=== PATIENT | male | born 1995 | race Native Hawaiian/Other Pacific Islander ===

== ENCOUNTER → 2018-02-24 | Outpatient (REF) ==
--- NOTE | 2018-02-24 15:09 | Diagnostic Imaging Report ---
INDICATION: Pain in the right MCP joints. TIME OF EXAMINATION: 3:13 PM. FINDINGS: The metacarpals are intact. The phalanges appear intact. No fractures are seen. The carpus is unremarkable. IMPRESSION: No acute bony abnormality is detected. Dictated by: Dictated on workstation # [id number]
== END | disposition home or self-care (01) ==
LOC: OCC 14:36
PROVIDERS: ATTEND Nurse Practitioner Family
CPT/HCPCS: 73130

== ENCOUNTER 2018-05-11 23:49 | Emergency (ER) | payer BC, OTHER ==
[~2018-05-11] VITALS: Ht 172.7 cm; Wt 81.6 kg
--- OUTSIDE RECORDS SUMMARY | 2018-05-11 23:57 | XMS REPORT | Continuity of Care Document ---
Author Author [facility] Address Unknown Phone Unavailable Allergies There is no data. Medications There is no data. Problems There is no data. Procedures There is no data. Results There is no data. Encounters ACCT No. Visit Date/Time Discharge Status Pt. Type Provider Facility Loc./Unit Complaint [id number] 05/09/2018 14:00:00 ACT Outpatient MARCO MENDOZA [facility] [id number] 02/24/2018 14:36:00 02/24/2018 23:59:59 CLS Outpatient FRANTZ LOCKHART [facility] OCC CRUSH INJURY ATTN DIGITAL 2-5 MELACARPALS RING 05/11/2018 23:54:00 ACT Emergency HARINI REYNOSO, YUVAL Ernandez [facility] ER SOB,PT STS POSS SOMETHING HE SWALLOWED LODGED IN T [id number] 04/21/2013 14:46:00 04/21/2013 23:59:59 CLS Outpatient
[2018-05-12] MEDS ORDERED: ANTACID SUSP 30 ML UDC (MYLANTA) PO ONE (00:45)
[2018-05-12] MEDS ORDERED: LIDOCAINE 2% VISCOUS 15 ML UDC PO ONE (00:45)
--- NOTE | 2018-05-12 01:19 | ED Chest Pain ---
General Chief Complaint: Chest Wall/Rib Pain Stated Complaint: SOB,PT STS POSS SOMETHING HE SWALLOWED LODGED IN T Nursing Triage Note: epigastric pain after eating today. Nursing Sepsis Screen: No Definite Risk Source: patient Exam Limitations: no limitations History of Present Illness Date Seen by Provider: May 12, 2018 Time Seen by Provider: 23:55 Initial Comments This 23-year-old presents to the emergency room with complaints of central chest pain upon returning home from work around 16:00. He has worsening of the pain with deep inspiration. He reports pain as 6/10. Vital signs are unremarkable. Allergies and Home Medications Allergies Coded Allergies: No Known Drug Allergies (Unverified , 05/12/18) Home Medications No Active Prescriptions or Reported Meds Patient Home Medication List Home Medication List Reviewed: Yes Review of Systems Constitutional: no symptoms reported EENTM: No Symptoms Reported Respiratory: See HPI Cardiovascular: See HPI Gastrointestinal: No Symptoms Reported Genitourinary: No Symptoms Reported Musculoskeletal: no symptoms reported Skin: no symptoms reported Psychiatric/Neurological: No Symptoms Reported Endocrine: No Symptoms Reported Hematologic/Lymphatic: No Symptoms Reported Past Hyeivcm-Wykaxs-Djmkhc Hx Past Med/Social Hx: Reviewed Nursing Past Med/Soc Hx, Reviewed and Corrections made Patient Social History Alcohol Use: Denies Use Recreational Drug Use: No Smoking Status: Never a Smoker 2nd Hand Smoke Exposure: No Recent Foreign Travel: No Contact w/Someone Who Travel: No Recent Infectious Disease Expo: No Recent Hopitalizations: No Immunizations Up To Date Tetanus Booster (TDap): Less than 5yrs Seasonal Allergies Seasonal Allergies: No Past Medical History Surgeries: No Respiratory: No Cardiac: No Neurological: No Genitourinary: No Gastrointestinal: No Musculoskeletal: No Endocrine: No HEENT: No Cancer: No Psychosocial: No Integumentary: No Blood Disorders: No Physical Exam Vital Signs Capillary Refill : Less Than 3 Seconds Height, Weight, BMI Height: 5'8.00" Weight: 180lbs.oz.81.647307ol; BMI Method:Stated General Appearance: No Apparent Distress, WD/WN HEENT: PERRL/EOMI, Normal ENT Inspection, Pharynx Normal Neck: Normal Inspection Respiratory: Lungs Clear, Normal Breath Sounds, No Accessory Muscle Use, No Respiratory Distress Cardiovascular: Regular Rate, Rhythm, No Edema, No Murmur Gastrointestinal: Normal Bowel Sounds, Non Tender, Soft Extremity: Normal Inspection, Non Tender, No Calf Tenderness, No Pedal Edema, Other (Negative [place]) Neurologic/Psychiatric: Alert, Oriented x3, No Motor/Sensory Deficits, Normal Mood/Affect, rehab spec II-XII Norm as Tested Skin: Normal Color, Warm/Dry Progress/Results/Core Measures Results/Orders Lab Results Laboratory Tests Test 05/12/18 01:29 Range/Units White Blood Count 14.8 H 4.3-11.0 10^3/uL Red Blood Count 6.02 H 4.35-5.85 10^6/uL Hemoglobin 17.7 13.3-17.7 G/DL Hematocrit 51 40-54 % Mean Corpuscular Volume 85 80-99 FL Mean Corpuscular Hemoglobin 29 25-34 PG Mean Corpuscular Hemoglobin Concent 35 32-36 G/DL Red Cell Distribution Width 13.4 10.0-14.5 % Platelet Count 367 130-400 10^3/uL Mean Platelet Volume 8.9 7.4-10.4 FL Neutrophils (%) (Auto) 70 42-75 % Lymphocytes (%) (Auto) 22 12-44 % Monocytes (%) (Auto) 7 0-12 % Eosinophils (%) (Auto) 1 0-10 % Basophils (%) (Auto) 0 0-10 % Neutrophils # (Auto) 10.3 H 1.8-7.8 X 10^3 Lymphocytes # (Auto) 3.3 1.0-4.0 X 10^3 Monocytes # (Auto) 1.0 0.0-1.0 X 10^3 Eosinophils # (Auto) 0.1 0.0-0.3 10^3/uL Basophils # (Auto) 0.0 0.0-0.1 10^3/uL Neutrophils % (Manual) 71 % Lymphocytes % (Manual) 20 % Monocytes % (Manual) 9 % Blood Morphology Comment NORMAL Sodium Level 140 135-145 MMOL/L Potassium Level 4.3 3.6-5.0 MMOL/L Chloride Level 104 98-107 MMOL/L Carbon Dioxide Level 24 21-32 MMOL/L Anion Gap 12 5-14 MMOL/L Blood Urea Nitrogen 25 H 7-18 MG/DL Creatinine 1.24 0.60-1.30 MG/DL Estimat Glomerular Filtration Rate > 60 BUN/Creatinine Ratio 20 Glucose Level 91 70-105 MG/DL Calcium Level 10.4 H 8.5-10.1 MG/DL Total Bilirubin 0.6 0.1-1.0 MG/DL Aspartate Amino Transf (AST/SGOT) 13 5-34 U/L Alanine Aminotransferase (ALT/SGPT) 12 0-55 U/L Alkaline Phosphatase 60 40-136 U/L Troponin I < 0.30 <0.30 NG/ML Total Protein 8.0 6.4-8.2 GM/DL Albumin 4.9 H 3.2-4.5 GM/DL My Orders Orders - YUVAL SCHULER MD Chest Pa/Lat (2 View) (05/12/18 00:36) Lidocaine 2% Viscous 15 Ml (Xylocaine Vi (05/12/18 00:45) Antacid Suspension (Mylanta Suspension (05/12/18 00:45) Cbc With Automated Diff (05/12/18 01:20) Comprehensive Metabolic Panel (05/12/18 01:20) Troponin I (05/12/18 01:20) Saline Lock/Iv-Start (05/12/18 01:20) Ketorolac Injection (Toradol Injection) (05/12/18 01:30) Manual Differential (05/12/18 01:29) Ekg Tracing (05/12/18 02:09) Iv Push Wood Stock Blank Handler Ed (05/11/18 ) Medications Given in ED Vital Signs/I&O Blood Pressure Mean: 108 Progress Progress Note #1: Time: 01:19 Progress Note GI cocktail did not improve his pain. Chest x-ray was unremarkable. Workup will be continued with blood work. Toradol will be given for pain. Progress Note #2: Progress Note Labs revealed a leukocytosis of 14,000 but no pneumonia was appreciated. Patient was feeling better with Toradol. Initial ECG Impression Date: May 12, 2018 Initial ECG Impression Time: 02:17 Initial ECG Rate: 54 Initial ECG Rhythm: Normal Sinus Initial ECG Intervals: Normal Initial ECG Impression: Normal Comment Normal sinus rhythm with no ST elevation or depression. No abnormal intervals or axis deviation. Diagnostic Imaging Diagonstic Imaging: Xray Plain Films/CT/US/NM/MRI: chest Comments Chest x-ray was viewed by me. Report not yet available. No acute abnormalities were appreciated. Departure Impression Primary Impression: Atypical chest pain Additional Impression: Leukocytosis, unspecified Disposition: 01 HOME, SELF-CARE Condition: Improved Departure-Patient Inst. Decision time for Depature: 02:48 Referrals: NO,LOCAL PHYSICIAN (PCP/Family) Primary Care Physician Patient Instructions: Chest Pain That Is Not Caused by the Heart (DC) Add. Discharge Instructions: For your pain take ibuprofen up to 600 mg every 6 hours as needed. Add Tylenol (acetaminophen) up to 1000 mg every 6 hours as needed for pain not controlled by ibuprofen. Please return to care if you have worsening symptoms or if new symptoms such as fever develop. If pain is not completely resolved within the next couple of days, please follow-up with your primary care provider. All discharge instructions reviewed with patient and/or family. Voiced understanding. Scripts No Active Prescriptions or Reported Meds Work/School Note: Work Release Form Date Seen in the Emergency Department: May 12, 2018 Return to Work: May 13, 2018 Restrictions: No Restrictions YUVAL SCHULER MD May 12, 2018 01:19
[2018-05-12] MEDS ORDERED: KETOROLAC 30 MG/ML VIAL IVP ONE (01:30)
[2018-05-12 01:34] LABS: BASOPHILS % (AUTO) 0 % (0-10); EOSINOPHILS # (AUTO) 0.1 10^3/uL (0.0-0.3); EOSINOPHILS % (AUTO) 1 % (0-10); HEMATOCRIT 51 % (40-54); HEMOGLOBIN 17.7 G/DL (13.3-17.7); LYMPHOCYTES # (AUTO) 3.3 X 10^3 (1.0-4.0); LYMPHOCYTES % (AUTO) 22 % (12-44); MEAN CORPUSCULAR HEMOGLOBIN 29 PG (25-34); MEAN CORPUSCULAR HGB CONC 35 G/DL (32-36); MEAN CORPUSCULAR VOLUME 85 FL (80-99); MEAN PLATELET VOLUME 8.9 FL (7.4-10.4); MONOCYTES % (AUTO) 7 % (0-12); NEUTROPHILS # (AUTO) 10.3 X 10^3 (1.8-7.8); NEUTROPHILS % (AUTO) 70 % (42-75); PLATELET COUNT 367 10^3/uL (130-400); RED BLOOD COUNT 6.02 10^6/uL (4.35-5.85); RED CELL DISTRIBUTION WIDTH 13.4 % (10.0-14.5); WHITE BLOOD COUNT 14.8 10^3/uL (4.3-11.0)
[2018-05-12 01:51] LABS: ALANINE AMINOTRANSFERASE 12 U/L (0-55); ALBUMIN 4.9 GM/DL (3.2-4.5); ALKALINE PHOSPHATASE 60 U/L (40-136); BILIRUBIN,TOTAL 0.6 MG/DL (0.1-1.0); BUN/CREATININE RATIO 20; CALCIUM 10.4 MG/DL (8.5-10.1); CARBON DIOXIDE 24 MMOL/L (21-32); CHLORIDE 104 MMOL/L (98-107); CREATININE SERUM 1.24 MG/DL (0.60-1.30); GFR ESTIMATED > 60; GLUCOSE 91 MG/DL (70-105); POTASSIUM 4.3 MMOL/L (3.6-5.0); SODIUM 140 MMOL/L (135-145)
[2018-05-12 02:02] LABS: LYMPHOCYTES % (MANUAL) 20 %; MONOCYTES % (MANUAL) 9 %; NEUTROPHILS % (MANUAL) 71 %; RBC MORPH NORMAL
[2018-05-12 02:55] VITALS: BP 136/90
--- NOTE | 2018-05-12 07:13 | Diagnostic Imaging Report ---
EXAMINATION: PA and lateral chest at 0105 AM INDICATION: Chest pain There are no prior studies available for comparison. The heart size is within normal limits. The lungs are clear. There is no evidence for failure, pneumonia or for a pleural effusion. There is no sign of a pneumothorax. The mediastinum is not widened. There are symmetric lucencies on each side of the tracheal air shadow at the level of the clavicles. These are probably secondary to superimposition as opposed to a pneumomediastinum. Even so, if the patient's symptoms of epigastric pain persist, then a repeat chest exam would be recommended. The osseous structures are intact IMPRESSION: 1. The linear lucencies on each side of the tracheal air shadow at the level of the clavicles are more likely due to superimposition than to a pneumomediastinum. Even so, the possibility of pneumomediastinum should still be considered. Recommendations as above. 2. There is no acute cardiopulmonary abnormality noted otherwise. 3. These results were discussed with Dr. Chatman in the ER. Dictated by: Dictated on workstation # [id number]
[2018-06-15] MEDS ORDERED: NF-NACL1GT PO (17:46)
[2018-06-15] MEDS ORDERED: SENN-20 PO (17:46)
[2018-06-15] MEDS ORDERED: FLDR.1T PO (17:46)
== END 2018-05-12 02:53 | disposition home or self-care (01) ==
LOC: EDUNIT# 23:49 → ER 23:54
DX: R07.89 Other chest pain (principal); D72.829 Elevated white blood cell count, unspecified
CPT/HCPCS: 36415; 71046; 80053; 84484; 85007; 85027; 93005; 96374

== ENCOUNTER → 2018-05-16 | Outpatient (CLI) | payer BC ==
[~2018-05-16] MED LIST: CARB15DR OU; FLDR.1T PO; IOHEXOL 350 MG/ML 100 ML (OMNIPAQUE 350) VIAL IV ONE; NF-NACL1GT PO; NS 250 ML (IVPB) BAG IV ONE; SENN-20 PO
[2018-05-16 15:43] LABS: BASOPHILS % (AUTO) 0 % (0-10); EOSINOPHILS # (AUTO) 0.1 10^3/uL (0.0-0.3); EOSINOPHILS % (AUTO) 1 % (0-10); HEMATOCRIT 51 % (40-54); HEMOGLOBIN 17.5 G/DL (13.3-17.7); LYMPHOCYTES % (AUTO) 34 % (12-44); MEAN CORPUSCULAR HEMOGLOBIN 29 PG (25-34); MEAN CORPUSCULAR HGB CONC 34 G/DL (32-36); MEAN CORPUSCULAR VOLUME 85 FL (80-99); MEAN PLATELET VOLUME 9.1 FL (7.4-10.4); MONOCYTES # (AUTO) 0.5 X 10^3 (0.0-1.0); MONOCYTES % (AUTO) 6 % (0-12); NEUTROPHILS # (AUTO) 5.3 X 10^3 (1.8-7.8); NEUTROPHILS % (AUTO) 59 % (42-75); PLATELET COUNT 383 10^3/uL (130-400); RED CELL DISTRIBUTION WIDTH 13.4 % (10.0-14.5)
--- NOTE | 2018-05-16 16:29 | Diagnostic Imaging Report ---
PROCEDURE: CT head with and without contrast. TECHNIQUE: Multiple contiguous axial images were obtained through the brain before and after the administration of intravenous contrast. INDICATION: Right lower extremity weakness and visual changes. COMPARISON: No prior studies are available for comparison. FINDINGS: There is a large, lobulated, hyperdense mass in the midline supratentorially. This appears to be located in the left lateral ventricle in the region of the frontal horn and body. This measures 6.5 cm AP x 5.2 cm transverse x 5.4 cm cephalocaudal. This does cross the midline and appears to displace the septum pellucidum and has mass effect on the right lateral ventricle. There is some dilatation of the lateral ventricles as well and temporal horn, suggestive of a component of hydrocephalus. This does have some central low density within it, consistent with cystic component. No definite calcification within the mass is identified. There does appear to be a component of enhancement on the post contrast images. Cisterns are patent. No acute intracranial hemorrhage is seen. Dos Santos-white matter interface is maintained. IMPRESSION: Large, lobulated, hyperdense mass with central cystic component which appears to be arising from the left lateral ventricle. Diagnostic considerations would include a central neurocytoma, ependymoma, or subependymoma. A giant cell astrocytoma would be another consideration. There does appear to be a moderate hydrocephalus present. MRI of the brain with and without intravenous contrast would be recommended for further characterization. Results were called to [facility] and given to the RN prior to this dictation. Dictated by: Dictated on workstation # [id number]
== END ==
LOC: RAD 15:18
PROVIDERS: ATTEND Nurse Practitioner Primary Care
DX: G93.89 Other specified disorders of brain (principal); R53.1 Weakness
CPT/HCPCS: 36415; 70470; 84443; 85025; 86308; 86617; 86666; 86757

== ENCOUNTER → 2018-05-17 | Outpatient (CLI) | payer BC ==
[~2018-05-17] MED LIST changes: +GADOBUTROL 10 MMOL/10 ML (GADAVIST) VIAL IV ONE; -IOHEXOL 350 MG/ML 100 ML (OMNIPAQUE 350) VIAL IV ONE; -NS 250 ML (IVPB) BAG IV ONE
--- NOTE | 2018-05-17 17:55 | Diagnostic Imaging Report ---
CLINICAL INDICATION: Patient has frontal headache with dizziness and blurred vision x1 month. Patient's vision fades to black comes back normal. Followup to CT done on 05/16/2018. EXAM: MRI of the brain performed without and with 8 cc of Gadavist IV contrast. Sequences include axial DWI, ADC map, coronal gradient echo, axial T2, axial FLAIR, axial T1, axial T1 post IV contrast, coronal T1 fat-sat post IV contrast, and sagittal T1 post IV contrast. COMPARISON: Head CT without and with contrast dated 05/16/2018. FINDINGS: Again seen heterogeneously enhancing mass which is in the region of the foramen of Monro/septum pellucidum and is predominantly left of midline and within the left ventricle. This mass measures 6.6 cm x 5.3 cm x 4.8 cm (AP x Trans x CC). There is diffusion restriction associated with this mass. There are some high T2 signal cystic changes associated with it. Prominent vessels are seen within it. There are some subtle amorphous areas of low gradient-echo within this mass which may represent calcification which may have represented to areas of high density on the prior noncontrast head CT. There is stable hydrocephalus with enlargement of the lateral ventricles (left side more than the right). There is localized pzao-zi-ndgda midline shift. There is no other intraparenchymal enhancing lesion seen. There is mild confluent high T2 signal in the lateral periventricular regions, likely representing transependymal flow. There is slight effacement of the suprasellar cistern. The [place] vascular structures show no gross abnormality as visualized. The pituitary gland, sella, and suprasellar regions are unremarkable as visualized. The extracranial soft tissue, skull, and orbits are unremarkable. Paranasal sinuses and temporal bone structures show no significant abnormality. IMPRESSION: Again seen heterogeneous enhancing mass which is in the region of the septum pellucidum/foramen of Monro and predominantly within the left lateral ventricle. There is associated hydrocephalus with transependymal flow. 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 Choroid plexus papilloma and ependymoma are suspected to be less likely. Dictated by: Dictated on workstation # [id number]
== END ==
LOC: RAD 13:37
PROVIDERS: ATTEND Nurse Practitioner Primary Care
DX: G93.9 Disorder of brain, unspecified (principal); G91.9 Hydrocephalus, unspecified
CPT/HCPCS: 70553

== ENCOUNTER 2018-06-02 10:53 | Inpatient (IN) | payer BC ==
[~2018-06-02] VITALS: Ht 172.7 cm; Wt 76.3 kg
[2018-06-02 16:45] VITALS: BP 106/77
[2018-06-02] MEDS ORDERED: ARTIFICAL TEARS 0.4 ML UNIT DOSE (REFRESH PLUS) OU PRN (17:15)
--- NOTE | 2018-06-02 17:41 | Consultation-Hospitalist ---
HPI History of Present Illness: HPI/Chief Complaint CC: Debility following brain surgery HPI: This is a 23-year-old male who presents to inpatient rehabilitation via [facility] after transferred from [facility] following brain surgery for a neurocytoma. Apparently he presented with recurrent headaches and worsening clinical status found to have brain mass and sent to higher level of care which resulted in successful and uncomplicated resection but now recovering from brain surgery with residual aphasia and right arm and leg weakness. Currently he is doing well mother has no concerns and she is at the bedside with her other 2 children. His bowels are moving and denies any pain. I reviewed all current medications from including Florinef, sodium tablets, and fluid restriction along with Decadron and all will be continued and labs will be monitored closely. Source: patient, family Exam Limitations: no limitations Date Seen 06/02/18 Attending Physician Cosmo Andersen MD PCP No,Local Physician Referring Physician Date of Admission Jun 02, 2018 at 16:56 Home Medications & Allergies Home Medications Reviewed patient Home Medication Reconciliation performed by pharmacy medication reconciliations measurement and sensing technician and/or nursing. Patients Allergies have been reviewed. Allergies Allergies Coded Allergies No Known Drug Allergies (Unverified05/12/18) Past Xlabpup-Ehhgjs-Ydeedd Hx Past Med/Social Hx: Reviewed Nursing Past Med/Soc Hx, Reviewed and Corrections made Patient Social History Marrital Status: single Employed/Student: student, full-time Alcohol Use: Denies Use Recreational Drug Use: No Smoking Status: Never a Smoker 2nd Hand Smoke Exposure: No Physical Abuse Screen: No Sexual Abuse: No Recent Foreign Travel: No Contact w/other who traveled: No Recent Hopitalizations: Yes ( - BRAIN TUMOR) Recent Infectious Disease Expo: No Immunizations Up To Date Tetanus Booster (TDap): Less than 5yrs Seasonal Allergies Seasonal Allergies: No Past Medical History Currently Using CPAP: No Currently Using BIPAP: No Loss of Vision: Right Hearing Impairment: Denies Did You Recieve Any Treatments: No History of Blood Disorders: No Family History Patient reports no known family medical history. Review of Systems Constitutional: see HPI, weakness EENTM: no symptoms reported Respiratory: no symptoms reported Cardiovascular: no symptoms reported Gastrointestinal: no symptoms reported Genitourinary: no symptoms reported Musculoskeletal: no symptoms reported Skin: no symptoms reported Psychiatric/Neurological: No Symptoms Reported All Other Systems Reviewed Negative Unless Noted: Yes Physical Exam Physical Exam Vital Signs Vital Signs - First Documented 06/02/18 16:45 Temp 98.5 Pulse 70 Resp 20 B/P (MAP) 106/77 (87) Pulse Ox 100 O2 Delivery Room Air Capillary Refill : Height, Weight, BMI Height: 5'8.00" Weight: 180lbs. oz. 81.627096op; BMI Method:Stated General Appearance: No Apparent Distress, WD/WN, Chronically ill Eyes: Bilateral Eye Normal Inspection, Bilateral Eye PERRL HEENT: PERRL/EOMI, TMs Normal, Normal ENT Inspection, Pharynx Normal Neck: Full Range of Motion, Normal Inspection, Non Tender, Supple, Carotid Bruit Respiratory: Chest Non Tender, Lungs Clear, Normal Breath Sounds, No Accessory Muscle Use, No Respiratory Distress Cardiovascular: Regular Rate, Rhythm, No Edema, No Gallop, No JVD, No Murmur, Normal Peripheral Pulses Gastrointestinal: Normal Bowel Sounds, No Organomegaly, No Pulsatile Mass, Non Tender, Soft Back: Normal Inspection, No CVA Tenderness, No Vertebral Tenderness Extremity: Normal Capillary Refill, Normal Inspection, Normal Range of Motion, Non Tender, No Calf Tenderness, No Pedal Edema Neurologic/Psychiatric: Alert, Oriented x3, Depressed Affect, Motor Weakness ( right arm and right leg) Skin: Normal Color, Warm/Dry Lymphatic: No Adenopathy Results Results/Procedures Labs Laboratory Tests 06/03/18 05:17 06/03/18 05:38 Patient resulted labs reviewed. Assessment/Plan Assessment and Plan Assess & Plan/Chief Complaint Assessment: Debility from brain surgery requiring IRF Hyponatremia Plan: IRF Monitor labs Fluid restriction 1000cc Diagnosis/Problems Diagnosis/Problems (1) Right sided weakness Status: Acute (2) Neurocytoma Status: Acute (3) Hyponatremia Status: Acute (4) Brain edema Status: Acute Clinical Quality Measures DVT/VTE Risk/Contraindication: Risk Factor Score Per Nursin RFS Level Per Nursing on Admit: 3=High BELKYS LINDER DO Jun 02, 2018 17:41
[2018-06-02] MEDS: LEVETIRACETAM 500 MG (KEPPRA) TAB PO SCH (20:54)
[2018-06-02] MEDS: FLUDROCORTISONE 0.1 MG (FLORINEF) TAB PO SCH (20:54)
[2018-06-02] MEDS: DEXAMETHASONE 4 MG TAB (DECADRON) PO SCH (20:54)
[2018-06-02] MEDS: SENNA W/DOCUSATE (SENOKOT S) TABLET PO SCH (20:55)
[2018-06-02] MEDS ORDERED: NON-FORMULARY MEDICATION 1 EA EA PO SCH ×2 (21:00)
[2018-06-02] MEDS ORDERED: SODIUM CHLORIDE PO SCH (21:00)
[2018-06-03 05:12] VITALS: BP 122/80
[2018-06-03 06:10] LABS: BASOPHILS % (AUTO) 0 % (0-10); EOSINOPHILS % (AUTO) 0 % (0-10); HEMATOCRIT 37 % (40-54); HEMOGLOBIN 12.5 G/DL (13.3-17.7); LYMPHOCYTES # (AUTO) 2.1 X 10^3 (1.0-4.0); LYMPHOCYTES % (AUTO) 11 % (12-44); MEAN CORPUSCULAR HEMOGLOBIN 31 PG (25-34); MEAN CORPUSCULAR HGB CONC 34 G/DL (32-36); MEAN CORPUSCULAR VOLUME 90 FL (80-99); MEAN PLATELET VOLUME 8.8 FL (7.4-10.4); MONOCYTES # (AUTO) 1.5 X 10^3 (0.0-1.0); MONOCYTES % (AUTO) 7 % (0-12); NEUTROPHILS # (AUTO) 16.6 X 10^3 (1.8-7.8); NEUTROPHILS % (AUTO) 82 % (42-75); PLATELET COUNT 410 10^3/uL (130-400); RED CELL DISTRIBUTION WIDTH 15.5 % (10.0-14.5); WHITE BLOOD COUNT 20.2 10^3/uL (4.3-11.0)
[2018-06-03 06:31] LABS: ALANINE AMINOTRANSFERASE 22 U/L (0-55); ALBUMIN 3.7 GM/DL (3.2-4.5); ALKALINE PHOSPHATASE 45 U/L (40-136); BILIRUBIN,TOTAL 0.6 MG/DL (0.1-1.0); BUN/CREATININE RATIO 29; CALCIUM 8.8 MG/DL (8.5-10.1); CARBON DIOXIDE 26 MMOL/L (21-32); CHLORIDE 98 MMOL/L (98-107); CREATININE SERUM 0.73 MG/DL (0.60-1.30); GFR ESTIMATED > 60; GLUCOSE 120 MG/DL (70-105); POTASSIUM 4.1 MMOL/L (3.6-5.0); SODIUM 133 MMOL/L (135-145); TOTAL PROTEIN 5.9 GM/DL (6.4-8.2)
[2018-06-03 06:39] LABS: LYMPHOCYTES % (MANUAL) 10 %; MONOCYTES % (MANUAL) 9 %; NEUTROPHILS % (MANUAL) 81 %; POLYCHROMASIA SLIGHT
[2018-06-03] MEDS: FLUDROCORTISONE 0.1 MG (FLORINEF) TAB PO SCH ×2 (08:53→20:27)
[2018-06-03] MEDS: SENNA W/DOCUSATE (SENOKOT S) TABLET PO SCH ×2 (08:53→20:28)
[2018-06-03] MEDS: LEVETIRACETAM 500 MG (KEPPRA) TAB PO SCH ×2 (08:53→20:28)
[2018-06-03] MEDS: DEXAMETHASONE 4 MG TAB (DECADRON) PO SCH ×2 (08:54→20:28)
[2018-06-03] MEDS: SODIUM CHLORIDE 1 GM TAB (NON-FORMULARY) PO SCH ×3 (08:54→20:27)
--- NOTE | 2018-06-03 09:01 | Physical Therapy Evaluation ---
PT Evaluation-General Medical Diagnosis Admission Date Jun 02, 2018 at 16:56 Medical Diagnosis: brain tumor Onset Date: Jun 01, 2018 Therapy Diagnosis Therapy Diagnosis: impaired mobility, strength, endurance, balance, coordination Height/Weight Height (Feet): 5 Height (Inches): 8.00 Weight (Pounds): 168 Weight (Ounces): 2.0 Precautions Precautions/Isolations: Fall Prevention Referral Physician: Ganesh Reason for Referral: Evaluation/Treatment Medical History Reviewed History: Yes Social History Home: Single Level Current Living Status: Other Family Entry Into Home: Stairs With Railing PT Steps Into Home: 2 Patient states he lives with his parents. Prior/Core FIM Prior Level of Function Functional Mcdaniels Measure 0=Not Assessed/NA 4=Minimal Assistance 1=Total Assistance 5=Supervision or Setup 2=Maximal Assistance 6=Modified Mcdaniels 3=Moderate Assistance 7=Complete Mcdaniels Bed Mobility: 7 Transfers (B,C,W/C) (FIM): 7 Gait: 7 PT Evaluation-Current Subjective Patient in bed pre tx, agrees to PT, no complaints of pain. Pt/Family Goals to be independent at home Objective Patient Orientation: Person, Confused ROM/Strength ROM Lower Extremities WNL Strenght Lower Extremities right lower extremity 4-/5, left lower extremity 4+/5 Neuromuscular (Tone, Coordination, Reflexes) Patient has impaired peripheral vision and tracking on the right side, decreased right upper and lower extremity coordination Sensory Vision: Hearing: Functional Sensation Right Lower Extremit: Intact Sensation Left Lower Extremity: Intact Sensation Lower Extremities Patient has intact light touch sensation in both lower extremities but states that he has some numbness/tingling in his right leg. Transfers Functional Mcdaniels Measure 0=Not Assessed/NA 4=Minimal Assistance 1=Total Assistance 5=Supervision or Setup 2=Maximal Assistance 6=Modified Mcdaniels 3=Moderate Assistance 7=Complete IndependenceIRFPAI Quality Coding Scale 6 Independent with activity with or without an assistive device 5 Patient requires set up or clean up by helper. Patient completes activity by themselves 4 Supervision or touching assist (CGA). [place] provide cues , steadying assist 3 The helper provides less than half the effort to complete the activity 2 The helper provides more than half the effort to complete the activity 1 Dependent. The helper does all the effort to complete an activity 7 Patient refused to complete or attempt activity 9 The patient did not perform the activity before the current illness or injury 88 Not attempted due to Medical conditions or safety concerns Transfers (B, C, W/C) (FIM): 4 Scootin Rollin Roll Left to Right (QC): 4 Supine to/from Sit: 4 Sit to/from Stand: 4 bed t/f WC(FIM only if WC use): 4 Sit to Lying (QC): 4 Lying to Sitting/Side of Bed(Q: 3 Sit to Stand (QC): 4 Chair/Wfk-gq-Jwwns Xfer(QC): 4 Car Transfer (QC): 4 Patient performs bed mobility with SBA, supine to sit with min assist, sit to supine with SBA, transfers with CGA, car transfer CGA. Gait Does the Patient Walk?: Yes Mode of Locomotion: Walk Anticipated Mode of Locomotion: Walk Gait (FIM): 4 Walk 10 feet (QC): 4 Walk 50 ft with 2 Turns(QC): 4 Walk 150 ft (QC): 4 Walking 10ft/uneven surface-QC: 4 Distance: 300'x2 Gait Level of Assist: 4 Gait Persons Needed: 1 Gait Assistive Device: None Comments/Gait Description Patient can ambulate 300' without an assistive device with CGA (including 50' with at least 2 turns of 90 degrees and 10' over an uneven surface). He needs some direction due to his visual impairments and gets dizzy with turning. He has a deviated path. Wheelchair Training Does the Pt Use a Wheelchair?: No Stairs Stairs (FIM): 2 #of Steps: 4 Level of Assist: 4 1 Step (curb) (QC): 4 4 Steps (QC): 4 Patient can go up and down 4 steps using 2 handrails with CGA. Patient needs cues for safety and foot placement. Balance Sitting Static: Normal Sitting Dynamic: Normal Standing Static: Fair Standing Dynamic: Fair Treatment Patient performed the Tinetti Assessment Tool and scored 22/28. He also performed the NuStep for 15 min at level 5. Assessment/Needs Patient has impaired mobility, strength, endurance, balance, coordination. He is at risk for a fall and is somewhat confused. Rehab Potential: Fair PT Short Term Goals Short Term Goals Time Frame: Jun 10, 2018 Transfers (B,C,W/C) (FIM): 5 Gait (FIM): 5 Gait Distance Comment: 400' Gait Level of Assist: 5 Gait Assistive Device: None PT Senior Care Goals Senior Care Goals PT Online User Experience Strategist Goals Time Frame: Jun 24, 2018 Transfers (B,C,W/C) (FIM): 6 Sit to Lying (QC): 6 Lying-Sitting on Side/Bed(QC): 6 Sit to Stand (QC): 6 Rollin Roll Left to Right (QC): 6 Chair/Iyx-kl-Ilxfk Xfer(QC): 6 Car Transfer (QC): 6 Gait (FIM): 7 Distance: 500' Walk 10 feet (QC): 6 Walk 10ft-Uneven Surface(QC): 6 Walk 50ft with 2 Turns (QC): 6 Walk 150 ft (QC): 6 Gait Assistive Device: None Stairs (FIM): 5 # of Steps: 12 1 Step (curb) (QC): 4 4 Steps (QC): 4 12 Steps (QC): 4 Stairs Level Of Assist: 5 PT Plan Problem List Problem List: Activity Tolerance, Functional Strength, Safety, Balance, Gait, Transfer, Bed Mobility Treatment/Plan Treatment Plan: Continue Plan of Care Treatment Plan: Bed Mobility, Education, Functional Activity Stevie, Functional Strength, Group Therapy, Gait, Safety, Therapeutic Exercise, Transfers Treatment Duration: Jun 24, 2018 Frequency: At least 5 of 7 days/Wk (IRF) Estimated Hrs Per Day: 1.5 hours per day Patient and/or Family Agrees t: Yes Safety Risks/Education Patient Education: Gait Training, Transfer Techniques, Steps, Correct Positioning, Safety Issues Teaching Recipient: Patient Teaching Methods: Demonstration, Discussion Response to Teaching: Reinforcement Needed Discharge Recommendations Plan Patient will perform bed mobility and transfer training, balance and endurance training, functional strengthening, stair training, gait training, and education , to improve functional mobility and independence at home. Therapy D/C Recommendations: Home w/ Family Support Time/GCodes Time In: 0800 Time Out: 0900 Total Billed Treatment Time: 60 Total Billed Treatment 1 visit EVM 30 GT 15' EX 15' IRMA DEAN PT Jun 03, 2018 09:01
--- NOTE | 2018-06-03 09:23 | PM&R Post Admission Assessment ---
Post Admission Physician Asses Date seen by provider: Jun 03, 2018 Time seen by provider: 09:00 The preadmission screen agrees with the post admission assessment that the patient is a good candidate for inpatient rehabilitation. The patient will have a comprehensive program of inpatient rehabilitation with a goal of maximizing level of functional independence prior to discharge home with family. The patient will have PT/OT ninety minutes per day, each discipline, five days a week for 14 days for gait, strengthening, conditioning, balance, ADLs, any patient/family/caregiver training as necessary. Speech therapy to do cognitive assessment and treat as indicated. Rehabilitation nursing to assist with bowel, bladder, skin, wound care, medication administration, pain management. Babbitt Spinner to assist with discharge planning, community reentry. SCD's and Heparin subcut for DVT prophylaxis. He appears to be well motivated to participate in three hours of therapy a day. He should be able to tolerate three hours of therapy a day from a medical and surgical standpoint. He should benefit from the three hours of therapy a day. He has a reasonable discharge plan, reasonable discharge rehabilitation goals and a supportive family. He has various comorbidities that need to be closely monitored with medications and treatments adjusted on a daily basis as needed. These include: Steroid induced leukocytosis Post op Hyponatremia on Fluid restriction and salt replacement tabs Barriers to discharge for this patient who had been independent prior to this are for him to be modified independent to supervision for ADLs and mobility skills prior to discharge home with family, so as to lessen the burden of the caregivers. Risks for this patient include: 1. Fall 2. Fracture 3. DVT 4. Pulmonary embolism 5. Wound infection 6. Skin breakdown 7. Contractures 8. Poorly controlled pain 9. Urinary retention 10. UTI 11. Respiratory infection 12. Aspiration 13.Seizure 14. Hyponatremia [facility] code 02.1 Etiologic DX Benign brain tumor Estimated Length of Stay: 14 days Prognosis: Rehab prognosis appears good for goal of discharge home with family modified independent to supervision for ADLs and mobility skills. General: Alert, Oriented X3, Cooperative, No Acute Distress HEENT: PERRLA, Mucous Memb Moist/[place], Other (crani site healing well) Neck: Supple, No JVD Lungs: Clear to Auscultation Heart: Regular Rate Abdomen: Normal Bowel Sounds, Soft, No Tenderness Extremities: No Edema Skin: Other (incision healing well) Neuro: Other (Mild rt HP with decreased balance) JORDY QUINTANILLA MD Jun 03, 2018 09:23
--- NOTE | 2018-06-03 10:44 | HISTORY AND PHYSICAL ---
DATE OF SERVICE: CHIEF COMPLAINT: Difficulty with walking. 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 The patient has now been referred to inpatient rehabilitation unit for ongoing therapies with approval of his commercial insurance. Currently, he is min assist for transfers, bed mobility and ambulation with a walker. He has some mild right hemiparesis. Speech is somewhat slow, but he is able to follow simple commands. He is on a heparin subcu and SCDs for DVT prophylaxis. He is on a 1000 cc fluid restriction for hyponatremia, but this has improved with salt tablets. His serum sodium today is 133. I discussed the case with nursing. His total protein is 5.9, blood glucose 120 and BUN 21. His WBC count is 20.2, H and H 12.5/37. He is on a steroid taper, which could account for his leukocytosis. He is on Keppra for seizure prophylaxis.He is min assist for transfers and gait He is min assist for dressing and bathing Set up for grooming.Modified Independent for eating. PAST MEDICAL HISTORY: Has been healthy otherwise, no PCP. PAST SURGICAL HISTORY: No prior surgeries. Dr. Godoy has assessed the patient. ALLERGIES: No known medication allergies. FAMILY HISTORY: Noncontributory. SOCIAL HISTORY: Lives with family, had been independent,Attends college, works part-time. REVIEW OF SYSTEMS: A 10-point review of systems, denies any headache, diplopia or dizziness. MEDICATIONS: Salt tablets 2 grams p.o. t.i.d., Decadron 2 mg p.o. b.i.d., Florinef 0.2 mg p.o. b.i.d., Keppra 500 mg p.o. b.i.d., Senokot-S one tablet p.o. b.i.d., Tylenol 650 mg q.4 hours p.r.n. mild pain, Heparin subq 5000 units q.8 hours, Refresh eyedrops 1 drop to both eyes p.r.n. dry eyes. PHYSICAL EXAMINATION: GENERAL: Significant for a pleasant male appearing stated age, lying in bed, in no acute distress. VITAL SIGNS: He is afebrile, pulse is 63, respirations 16, blood pressure 122/80 and O2 sat 100% on room air. HEENT: Craniotomy incision site is healing well, no drainage noted. Vision, speech and hearing grossly intact. No oral lesions noted. NECK: Supple without mass. HEART: Regular rhythm. CHEST: Clear. ABDOMEN: Soft, nontender and bowel sounds present. EXTREMITIES: No lower leg edema and no calf tenderness. MUSCULOSKELETAL: He has functional active range of motion in all 4 extremities. NEUROLOGIC: He has a very mild right hemiparesis and gait imbalance.Strength RT LE 4-/5 LLE 4++/5 RUE 3+/5 LUE 4/5.Coordination impaired on RT. Sensation is grossly intact to touch. Cognition-memory mildly impaired ST eval pending. ASSESSMENT: 1. Status post left frontal craniotomy for resection of intraventricular brain tumor, benign with residual RT HP. 2. Postop hyponatremia improved with fluid restriction and salt replacement. 1000 cc Fliud retriction continues for now. 3. Steroid-induced leukocytosis, on steroid taper. 4. Steroid taper. 5. Deep vein thrombosis prophylaxis, on SCDs and heparin subq. 6. Seizure prophylaxis on keppra PLAN: The patient will have a comprehensive program of inpatient rehabilitation with goal of maximizing level of functional independence, prior to discharge home with his parents. His younger brother spent the night with him in a recliner. The patient will have PT, OT and speech therapy daily. Please see post-admission physician evaluation for details of plan of care. Rehabilitation nursing to assist with bowel, bladder, skin, wound care, medication administration and pain management as necessary. The patient reports no pain at this time. cab worker to assist with discharge planning, community reentry, liberalize fluid restriction and decreased salt tablets as necessary. Monitor steroid-induced leukocytosis and serum sodium.Follow up with his neurosurgeon upon discharge. ESTIMATED LENGTH OF STAY: 14 days. PROGNOSIS: Rehab prognosis appears good for goal of discharging home with family, modified independent to supervision for ADLs and mobility skills. DIET: Regular. CODE STATUS: Full code. Job ID: [id number] DocumentID: [id number] Dictated Date: 06/03/2018 09:17:20 Gastroenterology Nurse Date: 06/03/2018 10:43:15 Dictated By: JORDY QUINTANILLA MD [facility]
--- NOTE | 2018-06-03 12:02 | Progress Note-Hospitalist ---
Subjective HPI/CC On Admission Date Seen by Provider: Jun 03, 2018 Time Seen by Provider: 11:50 Subjective/Events-last exam Patient doing well today Participating in therapy Eating and drinking well Overall has no concerns Review of Systems Neurological: Weakness, Incoordination Objective Exam Vital Signs Vital Signs Date Time Temp Pulse Resp B/P (MAP) Pulse Ox O2 Delivery O2 Flow Rate FiO2 06/03/18 05:12 99.0 63 16 122/80 (94) 100 Room Air Capillary Refill : General Appearance: No Apparent Distress, WD/WN Respiratory: Chest Non Tender, Lungs Clear, Normal Breath Sounds, No Accessory Muscle Use, No Respiratory Distress Cardiovascular: Regular Rate, Rhythm, No Edema, No Gallop, No JVD, No Murmur, Normal Peripheral Pulses Neurologic/Psychiatric: Alert, Oriented x3, Normal Mood/Affect, Motor Weakness Results/Procedures Lab Laboratory Tests 06/03/18 05:17 06/03/18 05:38 Patient resulted labs reviewed. Assessment/Plan Assessment and Plan Assess & Plan/Chief Complaint Debility following brain surgery Continue fluid restriction Continue current meds Clinical Quality Measures DVT/VTE Risk/Contraindication: Risk Factor Score Per Nursin RFS Level Per Nursing on Admit: 3=High BELKYS LINDER DO Jun 03, 2018 12:02
[2018-06-03] MEDS ORDERED: CARB15DR OU (13:57)
--- NOTE | 2018-06-03 13:59 | Occupational Therapy Eval ---
OT Evaluation-General/PLF Medical Diagnosis Admission Date Jun 02, 2018 at 16:56 Medical Diagnosis: brain tumor Onset Date: Jun 01, 2018 Therapy Diagnosis Therapy Diagnosis: Weakness Height/Weight Height (Feet): 5 Height (Inches): 8.00 Weight (Pounds): 168 Weight (Ounces): 2.0 Precautions Precautions/Isolations: Fall Prevention Weight Bear Status Weight Bearing Restriction: Weight Bearing/Tolerated Referral Physician: Ganesh Referral Reason: Activity Tolerance, Self Care, Evaluation/Treatment, Strengthening/ROM Medical History Current History Pt. had benign brain tumor resected at [facility]. 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 Pt. reports that he worked, but can't recall where he worked. Pt. is unable to state all previous history. DME/Equipment: Tub/Shower Occupation: Student at [employer] [address] Self: Yes OT Current Status Subjective No pain reported. Pt. just states that he is tired. Appearance Pt. is in bed. Does wake up and agrees to shower. Mental Status/Objective Patient Orientation: Unable to Assess Current Glasses/Contacts: Yes Hand Dominance: Left Upper Extremity ROM WFL Upper Extremity Strength Right UE- 3+/5 Left UE- 4/5 ADL-Treatment Functional [place] Measure 0=Not Assessed/NA 4=Minimal Assistance 1=Total Assistance 5=Supervision or Setup 2=Maximal Assistance 6=Modified [place] 3=Moderate Assistance 7=Complete IndependenceIRFPAI Quality Coding Scale 6 Independent with activity with or without an assistive device 5 Patient requires set up or clean up by helper. Patient completes activity by themselves 4 Supervision or touching assist (CGA). [place] provide cues , steadying assist 3 The helper provides less than half the effort to complete the activity 2 The helper provides more than half the effort to complete the activity 1 Dependent. The helper does all the effort to complete an activity 7 Patient refused to complete or attempt activity 9 The patient did not perform the activity before the current illness or injury 88 Not attempted due to Medical conditions or safety concerns Grooming (FIM): 5 (Pt. is able to stand and brush teeth, but requires close supervision, as he brushes them multiple times and needs cues to sequence and move to next step.) Oral Hygiene (QC): 4 Bathing (FIM): 4 (Min assist in stance. Pt. is unable to process or sequence tasks without multiple cues and directions.) Shower/Bathe Self (QC): 4 Upper Body Dressing (FIM): 5 Upper Body Dressing (QC): 4 Lower Body Dressing (FIM): 4 (CGA in stance to pull pants up. Pt. is able to don socks and shoes but requires increased time to do so.) Lower Body Dressing (QC): 4 On/Off Footwear (QC): 4 Transfers (B, C, W/C) (FIM): 4 (Pt. is able to ambulate without assistive device, but requires hand held assist.) Shower Transfer (FIM): 4 Other Treatments Pt. ambulated to therapy gym. Completed nut/bolt activity to work on fine motor coordination with right UE. Pt. had some difficulty with this, and mainly used his left hand. Pt. was given visual perceptual task and asked to complete drawing. Pt. required increased time and drawing was poor without most parts. Completed visual scanning task in which pt. was asked to find all items that resembled eachother and [place] them. Pt. able to do it with increased time needed. OT assessed vision crudely. Noted that pt. seems to have visual field cut on right side, with only limited visual field to right of midline. Pt. is also limited in upper field as well. Will continue to assess vision more with therapy sessions. Education OT Patient Education: Correct positioning, Modified ADL techniques, Progress toward Goal/Update tx plan, Purpose of tx/functional activities, Reviewed precautions, Rehab process, Transfer techniques Teaching Recipient: Patient Teaching Methods: Demonstration, Discussion Response to Teaching: Verbalize Understanding, Return Demonstration OT Short Term Goals Short Term Goals Time Frame: Jun 17, 2018 Eating(FIM): 4 Grooming(FIM): 5 Bathing(FIM): 5 Upper Body Dressing(FIM): 5 Lower Body Dressing(FIM): 5 Toileting(FIM): 5 Transfers (B,C,W/C) (FIM): 5 Toilet/Commode Transfer(FIM): 5 Shower Transfer(FIM): 5 Additional Short Term Goals: 1-Demonstrate ADL Tasks, 2-Verbalize Understanding , 3-ImproveStrength/Stevie 1=Demonstrate adherence to instructed precautions during ADL tasks. 2=Patient will verbalize/demonstrate understanding of assistive devices/ modifications for ADL. 3=Patient will improve strength/tolerance for activity to enable patient to perform ADL's. OT Usp Goals Usp Goals Time Frame: Jul 01, 2018 Eating (FIM): 7 Eating (QC): 6 Groomin Oral Hygiene (QC): 6 Bathing(FIM): 5 Shower/Bathe Self (QC): 5 Upper Body Dressing(FIM): 6 Upper Body Dressing (QC): 6 Lower Body Dressing(FIM): 6 Lower Body Dressing (QC): 6 On/Off Footwear (QC): 6 Toileting(FIM): 6 Toileting Hygiene (QC): 6 Transfers (B,C,W/C) (FIM): 6 Toilet/Commode Transfer(FIM): 6 Toilet/Commode Transfer (QC): 6 Shower Transfer(FIM): 5 Additional Goals: 1-Demonstrate ADL Tasks, 2-Verbalize Understanding, 3- ImproveStrength/Stevie 1=Demonstrate adherence to instructed precautions during ADL tasks. 2=Patient will verbalize/demonstrate understanding of assistive devices/ modifications for ADL. 3=Patient will improve strength/tolerance for activity to enable patient to perform ADL's. OT Education/Plan Problem List/Assessment Assessment: Decreased Activ Tolerance, Decreased Safety Aware, Decreased UE Strength, Dependent Transfers, Impaired Bed Mobility, Impaired Cognition, Impaired Coordination, Impaired Funct Balance, Impaired I ADL's, Impaired Self- Care Skills, Restricted Funct UE ROM, Visual-Perceptual Deficit Discharge Recommendations Plan/Recommendations: Continue POC Therapy D/C Recommendations: Home w/ Family Support, Occupational Therapy Home Care, Scheduled Assistance Comment Equipment needs to be determined at time of discharge. Treatment Plan/Plan of Care Treatment,Training & Education: Yes Patient would benefit from OT for education, treatment and training to promote independence in ADL's, mobility, safety and/or upper extremity function for ADL' s. Plan of Care: ADL Retraining, Caregiver Training, Cognitive Retraining, Functional Mobility, Group Exercise/Act as Ind, UE Funct Exercise/Act, Visual/ Perceptual Retrain Treatment Duration: Jul 01, 2018 Frequency: At least 5 of 7 days/Wk (IRF) Estimated Hrs Per Day: 1.5 hours per day Agreement: Yes Rehab Potential: Good Time/GCodes Start Time: 09:30 Stop Time: 10:30 Total Time Billed (hr/min): 60 Billed Treatment Time 1, EVH x 15minutes, ADL x 30minutes, FA x 15minutes GEOFFREY LONG OT Jun 03, 2018 13:59
--- NOTE | 2018-06-03 14:57 | Therapy Group Daily Note ---
Therapy Daily Group Note Patient Education Topic Other List Below (memory: long and short termand strategies for recall) Exercises LE Seated Exercise, UE Exercise Other/Notes Pt. participated in group PT OT session this date. Pt. ambulated to from with FWW and COMPRESS ENGINEER. Pts. were educated/reviewed on ARU practices and expectations. Education regarding long and short term memory was done and patients all shared their most significant memory of a historical event. Pts. all participated in seated U&L extremity exercises. A fun, engaging memory activity was enjoyed by all whereby memorizing and matching images was the focus. The importance of sleep and good rest habits was also a topic of education . Pt. to room after Rx with assist in bed begum at hand. Start Time: 13:00 Stop Time: 14:30 Total Billed Treatment Time: 90 Total Billed Treatment 1,GRP RAFAEL SYED PUBLIC SPEAKING INSTRUCTOR Jun 03, 2018 14:57
--- NOTE | 2018-06-03 16:05 | Speech Therapy Daily Note ---
Speech Daily Progress Note Subjective Date Seen by Provider: Jun 03, 2018 Speech-Plan Treatment Plan Rehab Potential: MARLA Jones Jun 03, 2018 16:05
--- NOTE | 2018-06-03 16:14 | ST Cognitive Linguistic Eval ---
Speech Evaluation-General Medical Diagnosis brain tumor Onset Date: Jun 01, 2018 Therapy Diagnosis Therapy Diagnosis: Cognition, speech and language Precautions Precautions/Isolations: Fall Prevention Referral Referring Physician: Dr. Andersen Reason for Referral: Evaluation/Treatment Medical History Reviewed History: Yes Social History Current Living Status: Other Family Speech PLF-Current Status Prior Level of Function independent Subjective Pt pleasant and cooperative. Language Eval: Auditory Comprehends Simple Yes/No Ques: Functional Follows 1-Step Commands: Functional Follows Complex Directions: Moderate Follows General Conversations: Mild Language Eval: Verbal Language Completes Spontaneous Greeting: Functional Word Finding: Moderate Requests Basic Needs: Mild States Basic Personal Info: Moderate Expresses Complex Ideas: Moderate Language Evaluation: Reading NT Cognitive Patient Orientation Pt oriented with help of orientation board. Objective Cognitive Domain Unable to assess due to expressive aphasia. Objective Formal/Standardized Tests Parts of the [facility] were administered. Simple Yes/no questions 5/5 Complex 3/5 1 step directions 3/3 2 step 1/3 Responsive Naming 7/7 Sentence formulation 0/2 Results Expressive aphasia. Oral Motor/Speech Production WFL Impression Mild-moderate expressive aphasia. Communication/Social Cognition Comprehension: 4 Expression: 3 Social Interaction: 7 Problem Solvin (unable to assess due to expressive aphasia.) Memory: 0 (unable to assess due to expresive aphasia) Speech Patient Assess Expression of Ideas/Wants: Frequently (2) Understanding Verbal Content: Usually Understands (3) Brief Interview-Mental Status: Yes Repetition of Three Words: Three (3) Temporal Orientation: Year: Correct (3) Temporal Orientation: Month: Accurate within 5 days(2) Temporal Orientation: Day: Correct (1) Recall : Wear to say "Sock": Yes,after cueing (1) Recall : Color: Yes, after cueing (1) Recall : Bed: Yes,after cueing (1) Speech Short Term Goals Short Term Goals Short Term Goals Pt will complete various verbal expressive tasks (naming, sentence completion, sentence formulation with at least 80% accuracy and min assist. Complete cognitive assessment as pt's verbal skills improve. Comprehension: 5 Expression: 4 Social Interaction: 7 Problem Solvin Memory: 0 Speech Hydrological Technical Officer Goals [facility] Goals Pt will have functional verbal skills for expressing needs, wants, desires independently. Speech-Plan Patient/Family Goals Patient/Family Goals: to return to his life Treatment Plan Speech Therapy Treatment Plan: Modify Plan, See Comments (skilled ST indicated) SKilled ST indicated. Frequency: 5 times per week Estimated Hrs Per Day: 1 hour per day Rehab Potential: Good Pt/Family Agrees to Plan: Yes Safety Risks/Education Teaching Recipient: Patient Teaching Methods: Discussion Response to Teaching: Verbalize Understanding Time Speech Therapy Time In: 10:00 Speech Therapy Time Out: 10:30 Total Billed Time: 30 Billed Treatment Time 1, SPSNDCOMP MARLA Dawn Jun 03, 2018 16:14
[2018-06-03 17:55] VITALS: BP 126/79
[2018-06-04 05:54] VITALS: BP 114/76
--- NOTE | 2018-06-04 07:46 | PM & R (SOAP) Progress Note ---
Subjective This was a face to face visit with the patient. Date Seen by Provider: Jun 04, 2018 Time Seen by Provider: 07:20 Subjective/Events-last exam Patient was seen in his room this AM No complaints Continues with mild RT HP NO diplopia dizziness or DOHERTY.Patient min assist for transfers. Review of Systems Neurological: Weakness Objective Physician Exam Last Set of Vital Signs Vital Signs Date Time Temp Pulse Resp B/P (MAP) Pulse Ox O2 Delivery O2 Flow Rate FiO2 06/04/18 05:54 98.8 65 20 114/76 (89) 99 Room Air Capillary Refill : I&O Intake and Output 06/04/18 00:00 Intake Total 1570 ml Output Total 120 ml Balance 1450 ml Intake Oral 1570 ml Output Urine Total 120 ml # Voids 4 General: Alert, Oriented X3, Cooperative, No Acute Distress HEENT: PERRLA, Mucous Memb Moist/[place], Other (crani site healing well) Neck: Supple, No JVD Lungs: Clear to Auscultation Heart: Regular Rate Abdomen: Normal Bowel Sounds, Soft, No Tenderness Extremities: No Edema Skin: Other (incision healing well) Neuro: Other (Mild rt HP with decreased balance) Results Lab Data Laboratory Tests 06/03/18 05:17: Sodium Level 133L, Potassium Level 4.1, Chloride Level 98, Carbon Dioxide Level 26, Anion Gap 9, Blood Urea Nitrogen 21H, Creatinine 0.73, Estimat Glomerular Filtration Rate > 60, BUN/Creatinine Ratio 29, Glucose Level 120H, Calcium Level 8.8, Total Bilirubin 0.6, Aspartate Amino Transf (AST/SGOT) 13, Alanine Aminotransferase (ALT/SGPT) 22, Alkaline Phosphatase 45, Total Protein 5.9L, Albumin 3.7 06/03/18 05:38: White Blood Count 20.2H, Red Blood Count 4.10L, Hemoglobin 12.5L, Hematocrit 37L , Mean Corpuscular Volume 90, Mean Corpuscular Hemoglobin 31, Mean Corpuscular Hemoglobin Concent 34, Red Cell Distribution Width 15.5H, Platelet Count 410H, Mean Platelet Volume 8.8, Neutrophils (%) (Auto) 82H, Lymphocytes (%) (Auto) 11L , Monocytes (%) (Auto) 7, Eosinophils (%) (Auto) 0, Basophils (%) (Auto) 0, Neutrophils # (Auto) 16.6H, Lymphocytes # (Auto) 2.1, Monocytes # (Auto) 1.5H, Eosinophils # (Auto) 0.0, Basophils # (Auto) 0.0, Neutrophils % (Manual) 81, Lymphocytes % (Manual) 10, Monocytes % (Manual) 9, Polychromasia SLIGHT Assessment/Plan Assessment and Plan S/P left frontal crani for benign tumor Post op hyponatremia on salt tabs and fluid restriction Lab noted Steroid induced Leukocytosis Steroid taper Seizure prophylaxis on Keppra DVT Prophylaxis on Heparin subcut Plan Continue PT/OT/ST Team Conference next week f/U with Hospitalist service Trend labs Continue current Meds Co-Morbidities that are continuing to impact the rehab process: (include details ) JORDY QUINTANILLA MD Jun 04, 2018 07:46
[2018-06-04] MEDS: FLUDROCORTISONE 0.1 MG (FLORINEF) TAB PO SCH ×2 (08:43→21:14)
[2018-06-04] MEDS: DEXAMETHASONE 4 MG TAB (DECADRON) PO SCH (08:43)
[2018-06-04] MEDS: SODIUM CHLORIDE 1 GM TAB (NON-FORMULARY) PO SCH ×3 (08:44→21:14)
[2018-06-04] MEDS: SENNA W/DOCUSATE (SENOKOT S) TABLET PO SCH ×2 (08:51→21:14)
--- NOTE | 2018-06-04 09:52 | Physical Therapy Daily Note ---
PT Daily Note-Current Subjective Pt. agreeable to Rx. Requests bathroom for stand up urination. Pain Numeric Pain Scale: 0-No Pain Mental Status Patient Orientation: Person, Place, Time, Situation Transfers Functional [place] Measure 0=Not Assessed/NA 4=Minimal Assistance 1=Total Assistance 5=Supervision or Setup 2=Maximal Assistance 6=Modified [place] 3=Moderate Assistance 7=Complete IndependenceIRFPAI Quality Coding Scale 6 Independent with activity with or without an assistive device 5 Patient requires set up or clean up by helper. Patient completes activity by themselves 4 Supervision or touching assist (CGA). [place] provide cues , steadying assist 3 The helper provides less than half the effort to complete the activity 2 The helper provides more than half the effort to complete the activity 1 Dependent. The helper does all the effort to complete an activity 7 Patient refused to complete or attempt activity 9 The patient did not perform the activity before the current illness or injury 88 Not attempted due to Medical conditions or safety concerns Transfers (B, C, W/C) (FIM): 5 Scootin Rollin Supine to/from Sit: 5 Sit to/from Stand: 5 Bed to/from Chair: 5 Gait Training Does the Patient Walk?: Yes Gait (FIM): 4 Distance (FIM): 3=150 ft (150x2) Gait Level of Assist: 4 Gait Persons Needed: 1 Gait Assistive Device: Handheld Assist some variation and staggering , short step length Exercises NuStep Minutes: 10 NuStep Workload: 5 Neuromuscular static and dynamic balance with slight bending, turning, and reaching. Assessment Current Status: Good Progress PT Short Term Goals Short Term Goals Time Frame: Jun 10, 2018 Transfers (B,C,W/C) (FIM): 5 Gait (FIM): 5 Gait Distance Comment: 400' Gait Level of Assist: 5 Gait Assistive Device: None PT Halfway Goals Optics Manufacturing Technician Goals PT Optics Manufacturing Technician Goals Time Frame: Jun 24, 2018 Transfers (B,C,W/C) (FIM): 6 Sit to Lying (QC): 6 Lying-Sitting on Side/Bed(QC): 6 Sit to Stand (QC): 6 Rollin Roll Left to Right (QC): 6 Chair/Xro-sp-Tefol Xfer(QC): 6 Car Transfer (QC): 6 Gait (FIM): 7 Distance: 500' Walk 10 feet (QC): 6 Walk 10ft-Uneven Surface(QC): 6 Walk 50ft with 2 Turns (QC): 6 Walk 150 ft (QC): 6 Gait Assistive Device: None Stairs (FIM): 5 # of Steps: 12 1 Step (curb) (QC): 4 4 Steps (QC): 4 12 Steps (QC): 4 Stairs Level Of Assist: 5 PT Plan Treatment/Plan Treatment Plan: Continue Plan of Care Treatment Plan: Bed Mobility, Education, Functional Activity Stevie, Functional Strength, Group Therapy, Gait, Safety, Therapeutic Exercise, Transfers Treatment Duration: Jun 24, 2018 Frequency: At least 5 of 7 days/Wk (IRF) Estimated Hrs Per Day: 1.5 hours per day Patient and/or Family Agrees t: Yes Safety Risks/Education Patient Education: Gait Training, Transfer Techniques, Correct Positioning, Safety Issues Teaching Recipient: Patient Teaching Methods: Demonstration, Discussion Response to Teaching: Verbalize Understanding, Return Demonstration, Reinforcement Needed Time/GCodes Time In: 830 Time Out: 900 Total Billed Treatment Time: 30 Total Billed Treatment 1,NM15m,EX15m G Codes Necessary: RAFAEL Rocha PTA Jun 04, 2018 09:52
--- NOTE | 2018-06-04 10:49 | Occupational Ther Daily Note ---
OT Current Status-Daily Note Subjective No pain reported. Appearance Pt. up in chair in gym after PT. Agrees to work with OT. Mental Status/Objective Patient Orientation: Person Functional [place] Measure 0=Not Assessed/NA 4=Minimal Assistance 1=Total Assistance 5=Supervision or Setup 2=Maximal Assistance 6=Modified [place] 3=Moderate Assistance 7=Complete [place] ADL-Treatment Functional [place] Measure 0=Not Assessed/NA 4=Minimal Assistance 1=Total Assistance 5=Supervision or Setup 2=Maximal Assistance 6=Modified [place] 3=Moderate Assistance 7=Complete IndependenceIRFPAI Quality Coding Scale 6 Independent with activity with or without an assistive device 5 Patient requires set up or clean up by helper. Patient completes activity by themselves 4 Supervision or touching assist (CGA). [place] provide cues , steadying assist 3 The helper provides less than half the effort to complete the activity 2 The helper provides more than half the effort to complete the activity 1 Dependent. The helper does all the effort to complete an activity 7 Patient refused to complete or attempt activity 9 The patient did not perform the activity before the current illness or injury 88 Not attempted due to Medical conditions or safety concerns Transfers (B, C, W/C) (FIM): 4 (Pt. does not use walker, but holds OT's hand.) Other Treatment Began treatment with having pt. read a passage from a paper. Assessed vision, speech, and cognition with this task. Pt. able to read paper, but was very slow and would at times, stop reading and required cues to continue to do so. Pt. states that his only problem is with speech. However, pt. was able to recall only very minimal information that was on the paper. Pt. then participated in fine motor coordination task with threading small beads on string. Pt. encouraged to engage his right hand more with this task, but had great difficulty with this. Poor coordination noted in right hand. Pt. was able to picker tender larger hot box checker pieces and put them in tub with right hand, but movements were slow. Ambulated back to room with hand held assist. All needs met in room. Education OT Patient Education: Correct positioning, Exercise program, Modified ADL techniques, Progress toward Goal/Update tx plan, Purpose of tx/functional activities, Reviewed precautions, Rehab process, Transfer techniques Teaching Recipient: Patient Teaching Methods: Demonstration, Discussion Response to Teaching: Verbalize Understanding, Return Demonstration OT Short Term Goals Short Term Goals Time Frame: Jun 17, 2018 Eating(FIM): 4 Grooming(FIM): 5 Bathing(FIM): 5 Upper Body Dressing(FIM): 5 Lower Body Dressing(FIM): 5 Toileting(FIM): 5 Transfers (B,C,W/C) (FIM): 5 Toilet/Commode Transfer(FIM): 5 Shower Transfer(FIM): 5 Additional Short Term Goals: 1-Demonstrate ADL Tasks, 2-Verbalize Understanding , 3-ImproveStrength/Stevie 1=Demonstrate adherence to instructed precautions during ADL tasks. 2=Patient will verbalize/demonstrate understanding of assistive devices/ modifications for ADL. 3=Patient will improve strength/tolerance for activity to enable patient to perform ADL's. OT Print Manager Goals Print Manager Goals Time Frame: Jul 01, 2018 Eating (FIM): 7 Eating (QC): 6 Groomin Oral Hygiene (QC): 6 Bathing(FIM): 5 Shower/Bathe Self (QC): 5 Upper Body Dressing(FIM): 6 Upper Body Dressing (QC): 6 Lower Body Dressing(FIM): 6 Lower Body Dressing (QC): 6 On/Off Footwear (QC): 6 Toileting(FIM): 6 Toileting Hygiene (QC): 6 Transfers (B,C,W/C) (FIM): 6 Toilet/Commode Transfer(FIM): 6 Toilet/Commode Transfer (QC): 6 Shower Transfer(FIM): 5 Additional Goals: 1-Demonstrate ADL Tasks, 2-Verbalize Understanding, 3- ImproveStrength/Stevie 1=Demonstrate adherence to instructed precautions during ADL tasks. 2=Patient will verbalize/demonstrate understanding of assistive devices/ modifications for ADL. 3=Patient will improve strength/tolerance for activity to enable patient to perform ADL's. OT Education/Plan Problem List/Assessment Assessment: Decreased Activ Tolerance, Decreased Safety Aware, Decreased UE Strength, Dependent Transfers, Impaired Cognition, Impaired Coordination, Impaired Funct Balance, Impaired I ADL's, Impaired Self-Care Skills, Restricted Funct UE ROM Bed alarm set. Discharge Recommendations Plan/Recommendations: Continue POC Therapy D/C Recommendations: Home w/ Family Support, Occupational Therapy Home Care Treatment Plan/Plan of Care Treatment,Training & Education: Yes Patient would benefit from OT for education, treatment and training to promote independence in ADL's, mobility, safety and/or upper extremity function for ADL' s. Plan of Care: ADL Retraining, Caregiver Training, Cognitive Retraining, Functional Mobility, Group Exercise/Act as Ind, UE Funct Exercise/Act, Visual/ Perceptual Retrain Treatment Duration: Jul 01, 2018 Frequency: At least 5 of 7 days/Wk (IRF) Estimated Hrs Per Day: 1.5 hours per day Agreement: Yes Rehab Potential: Good Time/GCodes Start Time: 09:10 Stop Time: 09:35 Total Time Billed (hr/min): 25 Billed Treatment Time 1, FA x 2 GEOFFREY LONG OT Jun 04, 2018 10:49
[2018-06-04 17:15] VITALS: BP 109/70
[2018-06-05 05:30] VITALS: BP 124/78
[2018-06-05] MEDS: ACETAMINOPHEN 325 MG TABLET PO PRN ×2 (07:06→14:03)
[2018-06-05] MEDS: FLUDROCORTISONE 0.1 MG (FLORINEF) TAB PO SCH ×2 (09:44→21:14)
[2018-06-05] MEDS: DEXAMETHASONE 4 MG TAB (DECADRON) PO SCH (09:44)
[2018-06-05] MEDS: SENNA W/DOCUSATE (SENOKOT S) TABLET PO SCH ×2 (09:44→21:14)
[2018-06-05] MEDS: SODIUM CHLORIDE 1 GM TAB (NON-FORMULARY) PO SCH ×3 (09:45→21:14)
[2018-06-05 16:52] VITALS: BP 119/72
[2018-06-06 05:00] VITALS: BP 116/80
[2018-06-06] MEDS: ACETAMINOPHEN 325 MG TABLET PO PRN ×3 (05:53→23:36)
[2018-06-06] MEDS: FLUDROCORTISONE 0.1 MG (FLORINEF) TAB PO SCH ×2 (09:55→21:02)
[2018-06-06] MEDS: SODIUM CHLORIDE 1 GM TAB (NON-FORMULARY) PO SCH ×3 (09:55→21:02)
[2018-06-06] MEDS: DEXAMETHASONE 4 MG TAB (DECADRON) PO SCH (09:55)
[2018-06-06] MEDS: SENNA W/DOCUSATE (SENOKOT S) TABLET PO SCH ×2 (10:23→21:02)
--- NOTE | 2018-06-06 10:50 | Physical Therapy Daily Note ---
PT Daily Note-Current Subjective Patient in bed pre tx, agrees to PT, has pain of 5/10 in right leg. Appearance Patient sitting EOB post tx with nurse call, phone, tray, all needs met. Mental Status Patient Orientation: Person, Place, Situation Transfers Functional [place] Measure 0=Not Assessed/NA 4=Minimal Assistance 1=Total Assistance 5=Supervision or Setup 2=Maximal Assistance 6=Modified [place] 3=Moderate Assistance 7=Complete IndependenceIRFPAI Quality Coding Scale 6 Independent with activity with or without an assistive device 5 Patient requires set up or clean up by helper. Patient completes activity by themselves 4 Supervision or touching assist (CGA). [place] provide cues , steadying assist 3 The helper provides less than half the effort to complete the activity 2 The helper provides more than half the effort to complete the activity 1 Dependent. The helper does all the effort to complete an activity 7 Patient refused to complete or attempt activity 9 The patient did not perform the activity before the current illness or injury 88 Not attempted due to Medical conditions or safety concerns Transfers (B, C, W/C) (FIM): 5 Scootin Rollin Supine to/from Sit: 7 Sit to/from Stand: 5 Bed to/from Chair: 5 Gait Training Gait (FIM): 5 Distance: 400'x2 Gait Level of Assist: 5 Gait Persons Needed: 5 Gait Assistive Device: None occasional unsteadiness but no LOB Exercises LAQ alternating for 5 min, marching 50', sidestepping 50', standing feet together 30 sec, tandem standing each way 30 sec, step-ups x10, step onto airex and back x10, marching in parallel bars x10 NuStep Minutes: 15 NuStep Workload: 5 Treatments transfers, ambulation, functional strengthening, balance training Assessment Current Status: Fair Progress patient fatigues quickly and needs frequent rest breaks. PT Short Term Goals Short Term Goals Time Frame: Jun 10, 2018 Transfers (B,C,W/C) (FIM): 5 Gait (FIM): 5 Gait Distance Comment: 400' Gait Level of Assist: 5 Gait Assistive Device: None PT Automatic Serging Machine Operator Goals [facility] Goals PT Automatic Serging Machine Operator Goals Time Frame: Jun 24, 2018 Transfers (B,C,W/C) (FIM): 6 Sit to Lying (QC): 6 Lying-Sitting on Side/Bed(QC): 6 Sit to Stand (QC): 6 Rollin Roll Left to Right (QC): 6 Chair/Auz-jq-Kvgqm Xfer(QC): 6 Car Transfer (QC): 6 Gait (FIM): 7 Distance: 500' Walk 10 feet (QC): 6 Walk 10ft-Uneven Surface(QC): 6 Walk 50ft with 2 Turns (QC): 6 Walk 150 ft (QC): 6 Gait Assistive Device: None Stairs (FIM): 5 # of Steps: 12 1 Step (curb) (QC): 4 4 Steps (QC): 4 12 Steps (QC): 4 Stairs Level Of Assist: 5 PT Plan Problem List Problem List: Activity Tolerance, Functional Strength, Safety, Balance, Gait, Transfer Treatment/Plan Treatment Plan: Continue Plan of Care Treatment Plan: Bed Mobility, Education, Functional Activity Stevie, Functional Strength, Group Therapy, Gait, Safety, Therapeutic Exercise, Transfers Treatment Duration: Jun 24, 2018 Frequency: At least 5 of 7 days/Wk (IRF) Estimated Hrs Per Day: 1.5 hours per day Patient and/or Family Agrees t: Yes Safety Risks/Education Patient Education: Gait Training, Transfer Techniques, Correct Positioning, Safety Issues Teaching Recipient: Patient Teaching Methods: Demonstration, Discussion Response to Teaching: Reinforcement Needed Time/GCodes Time In: 0945 Time Out: 1045 Total Billed Treatment Time: 60 Total Billed Treatment 1 visit EX 30' GT 15' NM 15' IRMA DEAN PT Jun 06, 2018 10:50
--- NOTE | 2018-06-06 13:17 | Occupational Ther Daily Note ---
OT Current Status-Daily Note Subjective No pain reported. Appearance Pt. is in bed in room awake. Agrees to work with OT. Mental Status/Objective Patient Orientation: Person Functional [place] Measure 0=Not Assessed/NA 4=Minimal Assistance 1=Total Assistance 5=Supervision or Setup 2=Maximal Assistance 6=Modified [place] 3=Moderate Assistance 7=Complete [place] ADL-Treatment Functional [place] Measure 0=Not Assessed/NA 4=Minimal Assistance 1=Total Assistance 5=Supervision or Setup 2=Maximal Assistance 6=Modified [place] 3=Moderate Assistance 7=Complete IndependenceIRFPAI Quality Coding Scale 6 Independent with activity with or without an assistive device 5 Patient requires set up or clean up by helper. Patient completes activity by themselves 4 Supervision or touching assist (CGA). [place] provide cues , steadying assist 3 The helper provides less than half the effort to complete the activity 2 The helper provides more than half the effort to complete the activity 1 Dependent. The helper does all the effort to complete an activity 7 Patient refused to complete or attempt activity 9 The patient did not perform the activity before the current illness or injury 88 Not attempted due to Medical conditions or safety concerns Lower Body Dressing (QC): 5 (SBA to don shoes) On/Off Footwear (QC): 4 Transfers (B, C, W/C) (FIM): 4 (Pt. requires hand held assist to ambulate to therapy gym.) Other Treatment Pt. states that he showered yesterday. Reports that he has clean clothing on and declines ADLs at this time. Pt. does agree however to work with OT in therapy gym. Ambulated to gym with hand held assist. Pt. tolerated 10 minutes on armbike to increase overall strength and endurance. OT attempted to engage pt. in talking about what he likes. Pt. has difficulty with this. Is able to remember that he worked at [employer], but does not remember what he did there. Is able to remember where his parents are from, but unable to recall when they came to [place]. Pt. is asked if he notices anything different about himself after his surgery. Pt. is able to indicate that he is happier. OT asks him about his memory and pt. does not feel that he has any trouble. Pt. does state that he is having trouble with his vision. Worked on cutting out large shape for visual motor coordination and fine motor coordination. Pt. able to complete this task with scissors, but it is not fluid. Also worked on math problems. Worked on visual sequencing of numbers and scanning. This took pt. increased time. Also worked on compare/contrast activity. Pt. was given a story to read, and had to come up with what was the same and what was different. Pt. did this with great effort, as there were many distractions in therapy area. Became easily dis-engaged. However, did finish the task. When OT asked him to read what he had wrote, pt. was unable to do so due to his writing ability, but also because the words did not make sense. Ambulated back to room. Education OT Patient Education: Correct positioning, Exercise program, Modified ADL techniques, Progress toward Goal/Update tx plan, Purpose of tx/functional activities, Reviewed precautions, Rehab process, Transfer techniques Teaching Recipient: Patient Teaching Methods: Demonstration, Discussion Response to Teaching: Verbalize Understanding, Return Demonstration OT Short Term Goals Short Term Goals Time Frame: Jun 17, 2018 Eating(FIM): 4 Grooming(FIM): 5 Bathing(FIM): 5 Upper Body Dressing(FIM): 5 Lower Body Dressing(FIM): 5 Toileting(FIM): 5 Transfers (B,C,W/C) (FIM): 5 Toilet/Commode Transfer(FIM): 5 Shower Transfer(FIM): 5 Comprehension(FIM): 5 Expression(FIM): 4 Social Interaction(FIM): 7 Problem Solving(FIM): 0 Memory(FIM): 0 Additional Short Term Goals: 1-Demonstrate ADL Tasks, 2-Verbalize Understanding , 3-ImproveStrength/Stevie 1=Demonstrate adherence to instructed precautions during ADL tasks. 2=Patient will verbalize/demonstrate understanding of assistive devices/ modifications for ADL. 3=Patient will improve strength/tolerance for activity to enable patient to perform ADL's. OT Hospital Television Rental Clerk Goals [facility] Goals Time Frame: Jul 01, 2018 Eating (FIM): 7 Eating (QC): 6 Groomin Oral Hygiene (QC): 6 Bathing(FIM): 5 Shower/Bathe Self (QC): 5 Upper Body Dressing(FIM): 6 Upper Body Dressing (QC): 6 Lower Body Dressing(FIM): 6 Lower Body Dressing (QC): 6 On/Off Footwear (QC): 6 Toileting(FIM): 6 Toileting Hygiene (QC): 6 Transfers (B,C,W/C) (FIM): 6 Toilet/Commode Transfer(FIM): 6 Toilet/Commode Transfer (QC): 6 Shower Transfer(FIM): 5 Additional Goals: 1-Demonstrate ADL Tasks, 2-Verbalize Understanding, 3- ImproveStrength/Stevie 1=Demonstrate adherence to instructed precautions during ADL tasks. 2=Patient will verbalize/demonstrate understanding of assistive devices/ modifications for ADL. 3=Patient will improve strength/tolerance for activity to enable patient to perform ADL's. OT Education/Plan Problem List/Assessment Assessment: Decreased Activ Tolerance, Decreased Safety Aware, Decreased UE Strength, Dependent Transfers, Impaired Bed Mobility, Impaired Cognition, Impaired Coordination, Impaired Funct Balance, Impaired I ADL's, Impaired Self- Care Skills, Restricted Funct UE ROM, Visual-Perceptual Deficit Bed alarm set. Discharge Recommendations Plan/Recommendations: Continue POC Therapy D/C Recommendations: 24 hr Supervision Treatment Plan/Plan of Care Treatment,Training & Education: Yes Patient would benefit from OT for education, treatment and training to promote independence in ADL's, mobility, safety and/or upper extremity function for ADL' s. Plan of Care: ADL Retraining, Caregiver Training, Cognitive Retraining, Functional Mobility, Group Exercise/Act as Ind, UE Funct Exercise/Act, Visual/ Perceptual Retrain Treatment Duration: Jul 01, 2018 Frequency: At least 5 of 7 days/Wk (IRF) Estimated Hrs Per Day: 1.5 hours per day Agreement: Yes Rehab Potential: Good Time/GCodes Start Time: 11:15 Stop Time: 12:00 Total Time Billed (hr/min): 45 Billed Treatment Time 1, EX x 15minutes, FA x 30minutes GEOFFREY LONG OT Jun 06, 2018 13:17
--- NOTE | 2018-06-06 14:32 | Therapy Group Daily Note ---
Therapy Daily Group Note Other/Notes Each patient had group therapy in the common area of rehab. Each patient ambulated or was transported to the common area of rehab and sat in a [place]. Each patient then had to introduce themselves, state where they were from, and answer a question involving memory and problem solving. Patient's performed upper and lower extremity seated exercises and they were led by the patient's themselves. Patients were also educated on correct transfers and positioning during transfers. Also they were educated on falls at home and patient's contributed their stories and ideas of falling and how to prevent it and things that can lead to falls. Afterwards, patients ambulated or were transported to their rooms and placed in bed or chair with all needs met. Start Time: 13:00 Stop Time: 14:15 Total Billed Treatment Time: 75 Total Billed Treatment 1 visit GRP 75' IRMA DEAN PT Jun 06, 2018 14:32
--- NOTE | 2018-06-06 15:15 | Speech Therapy Daily Note ---
Speech Daily Progress Note Subjective Date Seen by Provider: Jun 06, 2018 Time Seen by Provider: 10:45 Pt in bed. Pleasant and cooperative. Objective Sentence completion activities. The first set the pt had to respond with a single word. He did fine with those. Next, sentence completion task in which pt had to respond with at least 2 words. This was much more difficult for the pt. He required mod assist to be able to complete. Communication Comprehension: 4 Expression: 3 Social Cognition Social Interaction: 7 Problem Solvin (unable to assess due to expressive aphasia.) Memory: 0 (unable to assess due to expresive aphasia) Speech Short Term Goals Short Term Goals Short Term Goals Pt will complete various verbal expressive tasks (naming, sentence completion, sentence formulation with at least 80% accuracy and min assist. Complete cognitive assessment as pt's verbal skills improve. Comprehension: 5 Expression: 4 Social Interaction: 7 Problem Solvin Memory: 0 Speech Nursing Home Goals Doper Operator Goals Pt will have functional verbal skills for expressing needs, wants, desires independently. Speech-Plan Patient/Family Goals Patient/Family Goals: to return home Treatment Plan Speech Therapy Treatment Plan: Continue Plan of Care pt participating well with treatment Frequency: 5 times per week Estimated Hrs Per Day: 1 hour per day Rehab Potential: Good Pt/Family Agrees to Plan: Yes Time Speech Therapy Time In: 10:45 Speech Therapy Time Out: 11:15 Total Billed Time: 30 Billed Treatment Time 1, JSESAMYLA MARLA HEWITT Jun 06, 2018 15:15
--- NOTE | 2018-06-06 15:20 | Speech Therapy Daily Note ---
Speech Daily Progress Note Subjective Date Seen by Provider: Jun 06, 2018 Time Seen by Provider: 14:30 Pt in bed resting after group tx. Pt pleasant and cooperative. Objective Barrier activity in which pt describes an pictured object and ELECTRICIAN APPRENTICE is to guess what it is. Pt had difficulty with this activity as his descriptions were very vague and some word finding errors were obvious. Next pt completed sentence completion activity with95% accuracy. Assessment Assessment Current Status: Good Progress Treatment Plan Continue Plan of Care Communication Comprehension: 4 Expression: 3 Social Cognition Social Interaction: 7 Problem Solvin (unable to assess due to expressive aphasia.) Memory: 0 (unable to assess due to expresive aphasia) Speech Short Term Goals Short Term Goals Short Term Goals Pt will complete various verbal expressive tasks (naming, sentence completion, sentence formulation with at least 80% accuracy and min assist. Complete cognitive assessment as pt's verbal skills improve. Comprehension: 5 Expression: 4 Social Interaction: 7 Problem Solvin Memory: 0 Speech Stock Tracer Goals Stock Tracer Goals Pt will have functional verbal skills for expressing needs, wants, desires independently. Speech-Plan Patient/Family Goals Patient/Family Goals: to return home Treatment Plan Speech Therapy Treatment Plan: Continue Plan of Care pt participating in treatment Treatment Duration: Jun 06, 2018 Frequency: 5 times per week Estimated Hrs Per Day: 1 hour per day Rehab Potential: Good Time Speech Therapy Time In: 14:30 Speech Therapy Time Out: 15:00 Total Billed Time: 30 Billed Treatment Time 1, MARLA SILVERMAN Jun 06, 2018 15:20
--- NOTE | 2018-06-06 17:26 | PM & R (SOAP) Progress Note ---
Subjective This was a face to face visit with the patient. Date Seen by Provider: Jun 06, 2018 Time Seen by Provider: 17:00 Subjective/Events-last exam Patient was seen in his room this afternoon.Patient SBA for transfers.Progressing well with therapies. Objective Physician Exam Last Set of Vital Signs Vital Signs Date Time Temp Pulse Resp B/P (MAP) Pulse Ox O2 Delivery O2 Flow Rate FiO2 06/06/18 05:00 99.5 63 16 116/80 (92) 100 Room Air Capillary Refill : I&O Intake and Output 06/06/18 00:00 Intake Total 900 ml Balance 900 ml Intake Oral 900 ml # Voids 2 General: Alert, Oriented X3, Cooperative, No Acute Distress HEENT: PERRLA, Mucous Memb Moist/[place], Other (crani site healing well) Neck: Supple, No JVD Lungs: Clear to Auscultation Heart: Regular Rate Abdomen: Normal Bowel Sounds, Soft, No Tenderness Extremities: No Edema Skin: Other (incision healing well) Neuro: Other (Mild rt HP with decreased balance) Assessment/Plan Assessment and Plan S/P left frontal crani for benign tumor Postop hyponatremia Steroid induced leukocytosis Steroid taper Seizure prophylaxis DVT prophylaxis on Heparin Subcut Plan Continue PT/OT/ST Team Conference 06-08-18 Recheck serum sodium Continue Fluid restriction and salt tablets Co-Morbidities that are continuing to impact the rehab process: (include details ) JORDY QUINTANILLA MD Jun 06, 2018 17:26
[2018-06-06 18:23] VITALS: BP 118/64
--- NOTE | 2018-06-06 20:55 | Individualized Plan of Care ---
Individualized Plan of Care Rehab Nursing IPOC Order Admission Date Jun 02, 2018 at 16:56 Current Orders Orders Pt Evaluate/Treat Request (06/02/18 10:53) Request Ot Evaluate & Treat (06/02/18 10:53) Request For Cognitive Services (06/02/18 10:53) Admission Order(Inpt,Obs,Sdc) (06/02/18 16:56) Code/Resuscitation (06/02/18 16:56) Initiate Admission Nursing Pro .admission (06/02/18 16:56) Isolation Central Supply Req (06/02/18 16:56) Consult Physician (06/02/18 16:56) Consult Hospitalist (06/02/18 17:11) Ambulate TID (06/02/18 17:14) Sequential Compression Device 08,20 (06/02/18 17:14) Dvt/Vte Risk - Notifiy Physici 08 (06/02/18 17:14) No Fluid On Trays (06/03/18 Dinner) Fluid Restriction (06/02/18 17:12) Acetaminophen Tablet/Caplet (Tylenol T (06/02/18 17:15) Dexamethasone Tablet (Decadron Tablet) (06/02/18 21:00) Fludrocortisone Tablet (Florinef Tablet) (06/02/18 21:00) Heparin Injection (Heparin Injection) (06/02/18 17:15) Levetiracetam Tablet (Keppra Tablet) (06/02/18 21:00) Carboxymethylcell Ophth Soln (Refresh Pl (06/02/18 17:15) Senna S Tablet (Senokot S Tablet) (06/02/18 21:00) Non-Formulary Medication (Non-Formulary (06/02/18 21:00) Non-Formulary Medication (Non-Formulary (06/02/18 21:00) Cbc With Automated Diff (06/03/18 06:00) Comprehensive Metabolic Panel (06/03/18 06:00) Sodium Chloride 14.6% Inj (Sodium Chlori (06/02/18 21:00) General/Regular (06/02/18 Dinner) Request Ot Evaluate & Treat (06/02/18 18:22) Manual Differential (06/03/18 05:38) Na Chloride Tab (Non-Formulary (Sodium C (06/03/18 09:00) Ct Head Wo (06/08/18 07:00) Patient Visit (06/03/18 ) Pt Eval Moderate Complexity (06/03/18 ) Exercise Therap, Ea 15 Min (06/03/18 ) Gait Training, Ea 15 Min (06/03/18 ) Patient Visit (06/03/18 ) Therapeutic, Group (06/03/18 ) Patient Visit (06/03/18 ) Speech Sound Lang Comp (06/03/18 ) Patient Visit (06/04/18 ) Ex Neuromuscular, Ea 15 Min (06/04/18 ) Exercise Therap, Ea 15 Min (06/04/18 ) Patient Visit (06/06/18 ) Exercise Therap, Ea 15 Min (06/06/18 ) Gait Training, Ea 15 Min (06/06/18 ) Ex Neuromuscular, Ea 15 Min (06/06/18 ) Patient Visit (06/06/18 ) Therapeutic, Group (06/06/18 ) Patient Visit (06/06/18 ) Treat. Speech/Lang/Voice (06/06/18 ) Patient Visit (06/06/18 ) Treat. Speech/Lang/Voice (06/06/18 ) Cbc No Diff (06/07/18 06:00) Basic Metabolic Panel (06/07/18 06:00) Nursing Communication (Order) (06/06/18 18:35) Rehab Nursing Orders: Ongoing Assess. of Cognitive Status, Ongoing Assess. of Function Status, Disease Management & Educaiton, DVT Prophylaxis, Fall Prevention, Fluid/Electrolyte/Nutrition Mgmt, Infection Prevention, Medication Management & Education, Management of Risks & Complications, Management of Skin Intergrity, Nutrition Management, Pain Management, Patient/Family Support, Wound Management PT IPOC Problem List: Activity Tolerance, Functional Strength, Safety, Balance, Gait, Transfer Treatment Plan: Continue Plan of Care Bed Mobility, Education, Functional Activity Stevie, Functional Strength, Group Therapy, Gait, Safety, Therapeutic Exercise, Transfers Treatment Duration: Jun 24, 2018 Frequency: At least 5 of 7 days/Wk (IRF) Estimated Hrs Per Day: 1.5 hours per day OT IPOC Problems: Decreased Activ Tolerance, Decreased Safety Aware, Decreased UE Strength, Dependent Transfers, Impaired Bed Mobility, Impaired Cognition, Impaired Coordination, Impaired Funct Balance, Impaired I ADL's, Impaired Self- Care Skills, Restricted Funct UE ROM, Visual-Perceptual Deficit OT Treatment, Training and Edu: Yes OT Problems Bed alarm set. Plan of Care: ADL Retraining, Caregiver Training, Cognitive Retraining, Functional Mobility, Group Exercise/Act as Ind, UE Funct Exercise/Act, Visual/ Perceptual Retrain Treatment Duration: Jul 01, 2018 Frequency: At least 5 of 7 days/Wk (IRF) Estimated Hrs Per Day: 1.5 hours per day [facility] Speech Therapy Treatment Plan: Continue Plan of Care Treatment Duration: Jun 06, 2018 Frequency: 5 times per week Estimated Hrs Per Day: 1 hour per day Fish Cleaner Machine Tender/Case Mgmt Fish Cleaner Machine Tender/Case Managemen: Discharge Planning, Patient/Family Counseling Dietitian/Pad Hand Dietitian/Pad Hand to monitor nutritional status and make changes and/or recommendations as needed and work with speech pathology on dietary upgrades as the occur. Physician IPOC Medical Issues being managed closely and that require the 24 hour availability of a physician Postop fever Postop hyponatremia Steroid induced leukocytosis Steroid taper Seizure prophylaxis DVT prophylaxis: Medical Issues: Bowel/Bladder Function, DVT Prophylaxis, Falls Precautions, Fluid/Electrolyte/Nutrition Balance, Infection Protection, Pain Management, Wound Care, Other (List) (as per above) Brief Synthesis of Preadmission Screen, Post-Admission Evaluation, and Therapy Evaluations: 23 yo male s/p crani and excision of benign tumor with postop hyponatremia on fluid restriction and salt tablets Spiked a fever this evening and CBC orfered as well as Tylenol Hospitalist aware.Had been Independent and living with family while going to [facility] Medical Prognosis: Good Anticipated Length of Stay: 06-20-18 Modified Independent to supervsion for adls and mobility skills with fever and hyponatremia resolved Anticipated d/c Destination: Home with family JORDY QUINTANILLA MD Jun 06, 2018 20:55
[2018-06-07 05:09] VITALS: BP 115/72
[2018-06-07 06:36] LABS: HEMOGLOBIN 11.8 G/DL (13.3-17.7); MEAN PLATELET VOLUME 8.6 FL (7.4-10.4); RED CELL DISTRIBUTION WIDTH 15.8 % (10.0-14.5)
[2018-06-07 07:01] LABS: BUN/CREATININE RATIO 21; CALCIUM 8.7 MG/DL (8.5-10.1); CARBON DIOXIDE 28 MMOL/L (21-32); CHLORIDE 101 MMOL/L (98-107); CREATININE SERUM 0.72 MG/DL (0.60-1.30); GFR ESTIMATED > 60; GLUCOSE 84 MG/DL (70-105); POTASSIUM 3.2 MMOL/L (3.6-5.0); SODIUM 136 MMOL/L (135-145)
--- NOTE | 2018-06-07 08:34 | PM & R (SOAP) Progress Note ---
Subjective This was a face to face visit with the patient. Date Seen by Provider: Jun 07, 2018 Time Seen by Provider: 07:45 Subjective/Events-last exam Patient was seen in his room this AM C/O mild DOHERTY and dizziness otherwise OK Had fever last night CBC ordered.Patient SBA for transfers Review of Systems HEENT: Head Aches Neurological: Other (weakness dizziness) Objective Physician Exam Last Set of Vital Signs Vital Signs Date Time Temp Pulse Resp B/P (MAP) Pulse Ox O2 Delivery O2 Flow Rate FiO2 06/07/18 05:09 99.5 67 16 115/72 (86) 98 Room Air Capillary Refill : I&O Intake and Output 06/07/18 00:00 Intake Total 700 ml Balance 700 ml Intake Oral 700 ml # Voids 8 # Bowel Movements 1 General: Alert, Oriented X3, Cooperative, No Acute Distress HEENT: PERRLA, Mucous Memb Moist/[place], Other (crani site healing well) Neck: Supple, No JVD Lungs: Clear to Auscultation Heart: Regular Rate Abdomen: Normal Bowel Sounds, Soft, No Tenderness Extremities: No Edema Skin: Other (incision healing well) Neuro: Other (Mild rt HP with decreased balance) Results Lab Data Laboratory Tests 06/07/18 05:19: White Blood Count 14.0H, Red Blood Count 4.00L, Hemoglobin 11.8L, Hematocrit 37L , Mean Corpuscular Volume 92, Mean Corpuscular Hemoglobin 30, Mean Corpuscular Hemoglobin Concent 32, Red Cell Distribution Width 15.8H, Platelet Count 348, Mean Platelet Volume 8.6, Sodium Level 136, Potassium Level 3.2L, Chloride Level 101, Carbon Dioxide Level 28, Anion Gap 7, Blood Urea Nitrogen 15, Creatinine 0.72, Estimat Glomerular Filtration Rate > 60, BUN/Creatinine Ratio 21, Glucose Level 84, Calcium Level 8.7 Assessment/Plan Assessment and Plan S/P left frontal crani for benign tumor Postop hyponatremia improved with fluid restriction and salt tabs Steroid induced leukocytosis-improved Steroid taper Seizure prophylaxis DVT prophylaxis Postop fever Plan Continue PT/Ot/ST ST notes some word finfing difficulty Team Conference tomorrow F/U with DR Jihan ramirez fever and labs see orders Treat DOHERTY and dizziness symptomatically Co-Morbidities that are continuing to impact the rehab process: (include details ) JORDY QUINTANILLA MD Jun 07, 2018 08:34
[2018-06-07] MEDS: FLUDROCORTISONE 0.1 MG (FLORINEF) TAB PO SCH ×2 (09:03→21:29)
[2018-06-07] MEDS: SODIUM CHLORIDE 1 GM TAB (NON-FORMULARY) PO SCH ×3 (09:04→21:29)
[2018-06-07] MEDS: SENNA W/DOCUSATE (SENOKOT S) TABLET PO SCH ×2 (09:04→21:30)
--- NOTE | 2018-06-07 10:02 | Physical Therapy Daily Note ---
PT Daily Note-Current Subjective Patient in bed pre tx, agrees to PT, has 4-5/10 in right leg. Patient is a little shaky today, he states he had a fever last night. Appearance Patient in bed post tx, has nurse call, phone, tray, all needs met. Mental Status Patient Orientation: Person, Place, Situation Transfers Functional [place] Measure 0=Not Assessed/NA 4=Minimal Assistance 1=Total Assistance 5=Supervision or Setup 2=Maximal Assistance 6=Modified [place] 3=Moderate Assistance 7=Complete IndependenceIRFPAI Quality Coding Scale 6 Independent with activity with or without an assistive device 5 Patient requires set up or clean up by helper. Patient completes activity by themselves 4 Supervision or touching assist (CGA). [place] provide cues , steadying assist 3 The helper provides less than half the effort to complete the activity 2 The helper provides more than half the effort to complete the activity 1 Dependent. The helper does all the effort to complete an activity 7 Patient refused to complete or attempt activity 9 The patient did not perform the activity before the current illness or injury 88 Not attempted due to Medical conditions or safety concerns Transfers (B, C, W/C) (FIM): 5 Scootin Rollin Supine to/from Sit: 6 Sit to/from Stand: 5 Bed to/from Chair: 5 Gait Training Gait (FIM): 5 Distance: 400'x2 Gait Level of Assist: 5 Gait Persons Needed: 1 Gait Assistive Device: None some unsteadiness on turns Stair Training Stair Training: Handrails/: 2 handrails Stairs (FIM): 5 #of Steps: 12 Stairs: Pattern: Step to Level of Assist: 5 Patient is SBA but needs close supervision and cues for safety and foot placement. Exercises Standing: Heel/toe raises, Mini squats (no hands) NuStep Minutes: 15 NuStep Workload: 5 Neuromuscular tandem walking, sidestepping, marching, step-ups, stepping on and off airex Treatments balance training, bed mobility and transfers, ambulation, functional strengthening, stairs Assessment Current Status: Fair Progress patient was a little shaky this morning PT Short Term Goals Short Term Goals Time Frame: Jun 10, 2018 Transfers (B,C,W/C) (FIM): 5 Gait (FIM): 5 Gait Distance Comment: 400' Gait Level of Assist: 5 Gait Assistive Device: None PT Stem Lead Former Goals Stem Lead Former Goals PT Stem Lead Former Goals Time Frame: Jun 24, 2018 Transfers (B,C,W/C) (FIM): 6 Sit to Lying (QC): 6 Lying-Sitting on Side/Bed(QC): 6 Sit to Stand (QC): 6 Rollin Roll Left to Right (QC): 6 Chair/Sdp-dk-Tdysy Xfer(QC): 6 Car Transfer (QC): 6 Gait (FIM): 7 Distance: 500' Walk 10 feet (QC): 6 Walk 10ft-Uneven Surface(QC): 6 Walk 50ft with 2 Turns (QC): 6 Walk 150 ft (QC): 6 Gait Assistive Device: None Stairs (FIM): 5 # of Steps: 12 1 Step (curb) (QC): 4 4 Steps (QC): 4 12 Steps (QC): 4 Stairs Level Of Assist: 5 PT Plan Problem List Problem List: Activity Tolerance, Functional Strength, Safety, Balance, Gait, Transfer Treatment/Plan Treatment Plan: Continue Plan of Care Treatment Plan: Bed Mobility, Education, Functional Activity Stevie, Functional Strength, Group Therapy, Gait, Safety, Therapeutic Exercise, Transfers Treatment Duration: Jun 24, 2018 Frequency: At least 5 of 7 days/Wk (IRF) Estimated Hrs Per Day: 1.5 hours per day Patient and/or Family Agrees t: Yes Safety Risks/Education Patient Education: Gait Training, Transfer Techniques, Steps, Correct Positioning, Safety Issues Teaching Recipient: Patient Teaching Methods: Demonstration, Discussion Response to Teaching: Reinforcement Needed Time/GCodes Time In: 0900 Time Out: 1000 Total Billed Treatment Time: 60 Total Billed Treatment 1 visit NM 15' EX 20' GT 35' IRMA DEAN PT Jun 07, 2018 10:02
--- NOTE | 2018-06-07 11:43 | Occupational Ther Daily Note ---
OT Current Status-Daily Note Subjective No pain reported. Appearance Pt. in bed. Pt. states that he has showered last night, and is already dressed. Agrees to ambulate to therapy gym with OT. Mental Status/Objective Patient Orientation: Person Functional [place] Measure 0=Not Assessed/NA 4=Minimal Assistance 1=Total Assistance 5=Supervision or Setup 2=Maximal Assistance 6=Modified [place] 3=Moderate Assistance 7=Complete [place] ADL-Treatment Functional [place] Measure 0=Not Assessed/NA 4=Minimal Assistance 1=Total Assistance 5=Supervision or Setup 2=Maximal Assistance 6=Modified [place] 3=Moderate Assistance 7=Complete IndependenceIRFPAI Quality Coding Scale 6 Independent with activity with or without an assistive device 5 Patient requires set up or clean up by helper. Patient completes activity by themselves 4 Supervision or touching assist (CGA). [place] provide cues , steadying assist 3 The helper provides less than half the effort to complete the activity 2 The helper provides more than half the effort to complete the activity 1 Dependent. The helper does all the effort to complete an activity 7 Patient refused to complete or attempt activity 9 The patient did not perform the activity before the current illness or injury 88 Not attempted due to Medical conditions or safety concerns Transfers (B, C, W/C) (FIM): 4 (Hand held assist to ambulate to gym.) Other Treatment Pt. participated in fine motor coordination tasks and visual perceptual tasks. Pt. worked on series of fine motor tasks with pinch melon packer using right hand. Pt. demonstrates poor coordination with right hand, and requires increased time. Pt. is unable to articulate what is difficult for him. Completed visual perceptual task with theraband grid. Pt. shown picture of visual perceptual grid in which he had to copy the same picture using colored rubber bands. Pt. is able to do this, with increasing difficulty of the picture. However, pt. requires increased time. Ambulated back to room. All needs met. Education OT Patient Education: Correct positioning, Exercise program, Progress toward Goal/Update tx plan, Purpose of tx/functional activities, Reviewed precautions, Rehab process, Transfer techniques Teaching Recipient: Patient Teaching Methods: Demonstration, Discussion Response to Teaching: Verbalize Understanding, Return Demonstration OT Short Term Goals Short Term Goals Time Frame: Jun 17, 2018 Eating(FIM): 4 Grooming(FIM): 5 Bathing(FIM): 5 Upper Body Dressing(FIM): 5 Lower Body Dressing(FIM): 5 Toileting(FIM): 5 Transfers (B,C,W/C) (FIM): 5 Toilet/Commode Transfer(FIM): 5 Shower Transfer(FIM): 5 Comprehension(FIM): 5 Expression(FIM): 4 Social Interaction(FIM): 7 Problem Solving(FIM): 0 Memory(FIM): 0 Additional Short Term Goals: 1-Demonstrate ADL Tasks, 2-Verbalize Understanding , 3-ImproveStrength/Stevie 1=Demonstrate adherence to instructed precautions during ADL tasks. 2=Patient will verbalize/demonstrate understanding of assistive devices/ modifications for ADL. 3=Patient will improve strength/tolerance for activity to enable patient to perform ADL's. OT Fci Goals Fci Goals Time Frame: Jul 01, 2018 Eating (FIM): 7 Eating (QC): 6 Groomin Oral Hygiene (QC): 6 Bathing(FIM): 5 Shower/Bathe Self (QC): 5 Upper Body Dressing(FIM): 6 Upper Body Dressing (QC): 6 Lower Body Dressing(FIM): 6 Lower Body Dressing (QC): 6 On/Off Footwear (QC): 6 Toileting(FIM): 6 Toileting Hygiene (QC): 6 Transfers (B,C,W/C) (FIM): 6 Toilet/Commode Transfer(FIM): 6 Toilet/Commode Transfer (QC): 6 Shower Transfer(FIM): 5 Additional Goals: 1-Demonstrate ADL Tasks, 2-Verbalize Understanding, 3- ImproveStrength/Stevie 1=Demonstrate adherence to instructed precautions during ADL tasks. 2=Patient will verbalize/demonstrate understanding of assistive devices/ modifications for ADL. 3=Patient will improve strength/tolerance for activity to enable patient to perform ADL's. OT Education/Plan Problem List/Assessment Assessment: Decreased Activ Tolerance, Decreased Safety Aware, Impaired Cognition, Impaired Coordination, Impaired Funct Balance, Impaired I ADL's, Impaired Self-Care Skills, Visual-Perceptual Deficit Bed alarm set. Discharge Recommendations Plan/Recommendations: Continue POC Therapy D/C Recommendations: Home w/ Family Support, Occupational Therapy Home Care Treatment Plan/Plan of Care Treatment,Training & Education: Yes Patient would benefit from OT for education, treatment and training to promote independence in ADL's, mobility, safety and/or upper extremity function for ADL' s. Plan of Care: ADL Retraining, Caregiver Training, Cognitive Retraining, Functional Mobility, Group Exercise/Act as Ind, UE Funct Exercise/Act, Visual/ Perceptual Retrain Treatment Duration: Jul 01, 2018 Frequency: At least 5 of 7 days/Wk (IRF) Estimated Hrs Per Day: 1.5 hours per day Agreement: Yes Rehab Potential: Good Time/GCodes Start Time: 10:00 Stop Time: 10:30 Total Time Billed (hr/min): 30 Billed Treatment Time 1, FA x 2 GEOFFREY LONG OT Jun 07, 2018 11:43
--- NOTE | 2018-06-07 11:51 | Occupational Ther Daily Note ---
OT Current Status-Daily Note Subjective No pain reported. Appearance Pt. in bed. Agrees to work with OT. Mental Status/Objective Patient Orientation: Person Functional [place] Measure 0=Not Assessed/NA 4=Minimal Assistance 1=Total Assistance 5=Supervision or Setup 2=Maximal Assistance 6=Modified [place] 3=Moderate Assistance 7=Complete [place] ADL-Treatment Functional [place] Measure 0=Not Assessed/NA 4=Minimal Assistance 1=Total Assistance 5=Supervision or Setup 2=Maximal Assistance 6=Modified [place] 3=Moderate Assistance 7=Complete IndependenceIRFPAI Quality Coding Scale 6 Independent with activity with or without an assistive device 5 Patient requires set up or clean up by helper. Patient completes activity by themselves 4 Supervision or touching assist (CGA). [place] provide cues , steadying assist 3 The helper provides less than half the effort to complete the activity 2 The helper provides more than half the effort to complete the activity 1 Dependent. The helper does all the effort to complete an activity 7 Patient refused to complete or attempt activity 9 The patient did not perform the activity before the current illness or injury 88 Not attempted due to Medical conditions or safety concerns Transfers (B, C, W/C) (FIM): 4 (hand held assist.) Other Treatment Pt. was asked what his favorite meal was. Pt. stated, "chicken and rice." Pt. was asked what he would have to buy at the store if he were to make chicken and rice. Pt. thought for a long time, but was only able to write chicken and rice. OT prompted if there were any other ingredients. Pt. states, "no." Pt. is then asked if he can write a list for spaghetti. Pt. thinks for a long time but is only able to write the word, "stock." Pt. also has difficulty writing. Noted small print. Pt. is left handed, but could not remember to stabilize the paper with right hand, so writing was even more difficult. Noted that pt. was also very distracted in therapy gym. Ambulated back to room and attempted to complete the task. Pt. is able to process better what goes in spaghetti, but still requires constant cues. Pt. is then asked to write his name multiple times on lines provided by OT, to work on fine motor coordination. Pt. is able to do this, but writing is very small and almost not legible. Pt. is educated and encouraged to recognize when he is over stimulated, or when he needs quiet time to think. Pt. does verbalize understanding. Education OT Patient Education: Correct positioning, Modified ADL techniques, Progress toward Goal/Update tx plan, Purpose of tx/functional activities, Reviewed precautions, Rehab process, Transfer techniques Teaching Recipient: Patient Teaching Methods: Demonstration, Discussion Response to Teaching: Verbalize Understanding, Return Demonstration OT Short Term Goals Short Term Goals Time Frame: Jun 17, 2018 Eating(FIM): 4 Grooming(FIM): 5 Bathing(FIM): 5 Upper Body Dressing(FIM): 5 Lower Body Dressing(FIM): 5 Toileting(FIM): 5 Transfers (B,C,W/C) (FIM): 5 Toilet/Commode Transfer(FIM): 5 Shower Transfer(FIM): 5 Comprehension(FIM): 5 Expression(FIM): 4 Social Interaction(FIM): 7 Problem Solving(FIM): 0 Memory(FIM): 0 Additional Short Term Goals: 1-Demonstrate ADL Tasks, 2-Verbalize Understanding , 3-ImproveStrength/Stevie 1=Demonstrate adherence to instructed precautions during ADL tasks. 2=Patient will verbalize/demonstrate understanding of assistive devices/ modifications for ADL. 3=Patient will improve strength/tolerance for activity to enable patient to perform ADL's. OT Care Home Goals Care Home Goals Time Frame: Jul 01, 2018 Eating (FIM): 7 Eating (QC): 6 Groomin Oral Hygiene (QC): 6 Bathing(FIM): 5 Shower/Bathe Self (QC): 5 Upper Body Dressing(FIM): 6 Upper Body Dressing (QC): 6 Lower Body Dressing(FIM): 6 Lower Body Dressing (QC): 6 On/Off Footwear (QC): 6 Toileting(FIM): 6 Toileting Hygiene (QC): 6 Transfers (B,C,W/C) (FIM): 6 Toilet/Commode Transfer(FIM): 6 Toilet/Commode Transfer (QC): 6 Shower Transfer(FIM): 5 Additional Goals: 1-Demonstrate ADL Tasks, 2-Verbalize Understanding, 3- ImproveStrength/Stevie 1=Demonstrate adherence to instructed precautions during ADL tasks. 2=Patient will verbalize/demonstrate understanding of assistive devices/ modifications for ADL. 3=Patient will improve strength/tolerance for activity to enable patient to perform ADL's. OT Education/Plan Problem List/Assessment Assessment: Decreased Activ Tolerance, Decreased Safety Aware, Impaired Cognition, Impaired Coordination, Impaired Funct Balance, Impaired I ADL's, Impaired Self-Care Skills Bed alarm set. Discharge Recommendations Plan/Recommendations: Continue POC Therapy D/C Recommendations: Home w/ Family Support, Occupational Therapy Home Care Treatment Plan/Plan of Care Treatment,Training & Education: Yes Patient would benefit from OT for education, treatment and training to promote independence in ADL's, mobility, safety and/or upper extremity function for ADL' s. Plan of Care: ADL Retraining, Caregiver Training, Cognitive Retraining, Functional Mobility, Group Exercise/Act as Ind, UE Funct Exercise/Act, Visual/ Perceptual Retrain Treatment Duration: Jul 01, 2018 Frequency: At least 5 of 7 days/Wk (IRF) Estimated Hrs Per Day: 1.5 hours per day Agreement: Yes Rehab Potential: Good Time/GCodes Start Time: 11:00 Stop Time: 11:30 Total Time Billed (hr/min): 30 Billed Treatment Time 1, FA x 2 GEOFFREY LONG OT Jun 07, 2018 11:51
[2018-06-07] MEDS ORDERED: KCL 10 MEQ TAB (MICRO K) PO NR (13:00)
--- NOTE | 2018-06-07 13:09 | Speech Therapy Daily Note ---
Speech Daily Progress Note Subjective Date Seen by Provider: Jun 07, 2018 Time Seen by Provider: 10:30 pt in bed...alert and cooperative. Pain Numeric Pain Scale: 0-No Pain Objective Repeat of Add to Category done previously today. Pt was 90% accurate with min assist. Spontaneous speech - pt's spontaneous speech is improving as he sentence length has increased since the evaluation. Assessment Assessment Current Status: Good Progress Treatment Plan Continue Plan of Care Communication Comprehension: 4 Expression: 3 Social Cognition Social Interaction: 7 Problem Solvin (unable to assess due to expressive aphasia.) Memory: 0 (unable to assess due to expresive aphasia) Speech Short Term Goals Short Term Goals Short Term Goals Pt will complete various verbal expressive tasks (naming, sentence completion, sentence formulation with at least 80% accuracy and min assist. Complete cognitive assessment as pt's verbal skills improve. Comprehension: 5 Expression: 4 Social Interaction: 7 Problem Solvin Memory: 0 Speech Building Energy Consultant Goals Building Energy Consultant Goals Pt will have functional verbal skills for expressing needs, wants, desires independently. Speech-Plan Patient/Family Goals Patient/Family Goals: to return home Treatment Plan Speech Therapy Treatment Plan: Continue Plan of Care continues to make good progress Treatment Duration: Jun 06, 2018 Frequency: 5 times per week Estimated Hrs Per Day: 1 hour per day Rehab Potential: Good Pt/Family Agrees to Plan: Yes Safety Risks/Education Teaching Recipient: Patient Teaching Methods: Discussion Response to Teaching: Verbalize Understanding Time Speech Therapy Time In: 14:50 Speech Therapy Time Out: 15:20 Total Billed Time: 30 Billed Treatment Time 1, SLMARLA Kulkarni Jun 07, 2018 13:09
--- NOTE | 2018-06-07 13:31 | Physical Therapy Daily Note ---
PT Daily Note-Current Subjective Patient in bed pre tx, agrees to PT, has pain of 4-5/10 in right leg. Appearance Patient BTB post tx with nurse call, phone, tray, all needs met. Mental Status Patient Orientation: Person, Place, Situation Transfers Functional [place] Measure 0=Not Assessed/NA 4=Minimal Assistance 1=Total Assistance 5=Supervision or Setup 2=Maximal Assistance 6=Modified [place] 3=Moderate Assistance 7=Complete IndependenceIRFPAI Quality Coding Scale 6 Independent with activity with or without an assistive device 5 Patient requires set up or clean up by helper. Patient completes activity by themselves 4 Supervision or touching assist (CGA). [place] provide cues , steadying assist 3 The helper provides less than half the effort to complete the activity 2 The helper provides more than half the effort to complete the activity 1 Dependent. The helper does all the effort to complete an activity 7 Patient refused to complete or attempt activity 9 The patient did not perform the activity before the current illness or injury 88 Not attempted due to Medical conditions or safety concerns Transfers (B, C, W/C) (FIM): 5 Scootin Rollin Sit to/from Stand: 5 Bed to/from Chair: 5 Gait Training Gait (FIM): 5 Distance: 2000' Gait Level of Assist: 5 Gait Persons Needed: 1 Gait Assistive Device: None Patient ambulated over community surfaces (curbs, sidewalks, uneven surfaces), cues for safety and obstacles Exercises LAQ alternating for 5 min with 3# ankle weights, seated hip flexion x20 each side with 3# ankle weights, sit to stand x10 Treatments ambulation, functional strengthening, transfers Assessment Current Status: Fair Progress improving endurance PT Short Term Goals Short Term Goals Time Frame: Jun 10, 2018 Transfers (B,C,W/C) (FIM): 5 Gait (FIM): 5 Gait Distance Comment: 400' Gait Level of Assist: 5 Gait Assistive Device: None PT Chcf Goals Veterans Service Representative Goals PT Chcf Goals Time Frame: Jun 24, 2018 Transfers (B,C,W/C) (FIM): 6 Sit to Lying (QC): 6 Lying-Sitting on Side/Bed(QC): 6 Sit to Stand (QC): 6 Rollin Roll Left to Right (QC): 6 Chair/Avy-ll-Selpd Xfer(QC): 6 Car Transfer (QC): 6 Gait (FIM): 7 Distance: 500' Walk 10 feet (QC): 6 Walk 10ft-Uneven Surface(QC): 6 Walk 50ft with 2 Turns (QC): 6 Walk 150 ft (QC): 6 Gait Assistive Device: None Stairs (FIM): 5 # of Steps: 12 1 Step (curb) (QC): 4 4 Steps (QC): 4 12 Steps (QC): 4 Stairs Level Of Assist: 5 PT Plan Problem List Problem List: Activity Tolerance, Functional Strength, Safety, Balance, Gait, Transfer Treatment/Plan Treatment Plan: Continue Plan of Care Treatment Plan: Bed Mobility, Education, Functional Activity Stevie, Functional Strength, Group Therapy, Gait, Safety, Therapeutic Exercise, Transfers Treatment Duration: Jun 24, 2018 Frequency: At least 5 of 7 days/Wk (IRF) Estimated Hrs Per Day: 1.5 hours per day Patient and/or Family Agrees t: Yes Safety Risks/Education Patient Education: Gait Training, Transfer Techniques, Correct Positioning, Safety Issues Teaching Recipient: Patient Teaching Methods: Demonstration, Discussion Response to Teaching: Reinforcement Needed Time/GCodes Time In: 1300 Time Out: 1330 Total Billed Treatment Time: 30 Total Billed Treatment 1 visit GT 15' EX 15' IRMA DEAN PT Jun 07, 2018 13:31
--- NOTE | 2018-06-07 13:51 | Progress Note-Hospitalist ---
Subjective HPI/CC On Admission Date Seen by Provider: Jun 07, 2018 Time Seen by Provider: 13:45 CC: Debility following brain surgery HPI: This is a 23-year-old male who presents to inpatient rehabilitation via [facility] after transferred from [facility] following brain surgery for a neurocytoma. Apparently he presented with recurrent headaches and worsening clinical status found to have brain mass and sent to higher level of care which resulted in successful and uncomplicated resection but now recovering from brain surgery with residual aphasia and right arm and leg weakness. Currently he is doing well mother has no concerns and she is at the bedside with her other 2 children. His bowels are moving and denies any pain. I reviewed all current medications from including Florinef, sodium tablets, and fluid restriction along with Decadron and all will be continued and labs will be monitored closely. Subjective/Events-last exam Pt reports doing well. Denies any complaints. Up working with PT. Discussed with RN: pt had fever overnight. now resolved. Objective Exam Vital Signs Vital Signs Date Time Temp Pulse Resp B/P (MAP) Pulse Ox O2 Delivery O2 Flow Rate FiO2 06/07/18 12:00 99.7 06/07/18 05:09 67 16 115/72 (86) 98 Room Air Capillary Refill : General Appearance: No Apparent Distress, WD/WN HEENT: Other (post operative wound) Respiratory: No Respiratory Distress Neurologic/Psychiatric: Alert, Oriented x3, Normal Mood/Affect Results/Procedures Lab Laboratory Tests 06/07/18 05:19 Patient resulted labs reviewed. Assessment/Plan Assessment and Plan Assess & Plan/Chief Complaint s/p brain tumor resection Diagnosis/Problems Diagnosis/Problems (1) Fever Status: Acute Assessment & Plan: Discussed with RN at Neurosurg office and if recurrent fever >101.5 they would request transfer for work up Leukocytosis trending down (and on steroids) Will continue to monitor closely and discussed these parameters with his RN Qualifiers: Fever type: post-procedural Qualified Codes: R50.82 - Postprocedural fever (2) Brain tumor Assessment & Plan: s/p resection on 05/20 To follow up with Neurosurgery per their recs (3) Hyponatremia Status: Acute Assessment & Plan: fluid restriction Clinical Quality Measures DVT/VTE Risk/Contraindication: Risk Factor Score Per Nursin RFS Level Per Nursing on Admit: 3=High JOSETTE CRAWFORD MD Jun 07, 2018 1:51 pm
--- NOTE | 2018-06-07 15:21 | Speech Therapy Daily Note ---
Speech Daily Progress Note Subjective Date Seen by Provider: Jun 07, 2018 Time Seen by Provider: 12:45 Pt laying in bed. Pleasant and cooperative. Objective Verbal Expressive activities: Add to the Category - Pt provided 3 words and he was to determine what they had in common and then provided an additional example. This was difficult for pt but especially when he had to provide another response. He required min to mod assist. Sentence construction provided word. Pt was 100% accurate with min assist. Much improved since his evaluation. Assessment Assessment Current Status: Good Progress Treatment Plan Continue Plan of Care Communication Comprehension: 4 Expression: 3 Social Cognition Social Interaction: 7 Problem Solvin (unable to assess due to expressive aphasia.) Memory: 0 (unable to assess due to expresive aphasia) Speech Short Term Goals Short Term Goals Short Term Goals Pt will complete various verbal expressive tasks (naming, sentence completion, sentence formulation with at least 80% accuracy and min assist. Complete cognitive assessment as pt's verbal skills improve. Comprehension: 5 Expression: 4 Social Interaction: 7 Problem Solvin Memory: 0 Speech Rate And Cost Analyst Goals Rate And Cost Analyst Goals Pt will have functional verbal skills for expressing needs, wants, desires independently. Speech-Plan Patient/Family Goals Patient/Family Goals: to return home. Treatment Plan Speech Therapy Treatment Plan: Continue Plan of Care pt making progress..continue with skilled ST. Treatment Duration: Jun 06, 2018 Frequency: 5 times per week Estimated Hrs Per Day: 1 hour per day Rehab Potential: Good Pt/Family Agrees to Plan: Yes Safety Risks/Education Teaching Recipient: Patient Teaching Methods: Discussion Response to Teaching: Verbalize Understanding Time Speech Therapy Time In: 10:30 Speech Therapy Time Out: 11:00 Total Billed Time: 30 Billed Treatment Time 1, MARLA SILVERMAN Jun 07, 2018 15:21
[2018-06-07] MEDS: ACETAMINOPHEN 325 MG TABLET PO PRN (17:32)
[2018-06-07 17:38] VITALS: BP 123/79
[2018-06-08] MEDS: ACETAMINOPHEN 325 MG TABLET PO PRN ×2 (00:12→10:58)
[2018-06-08 05:10] VITALS: BP 117/52
--- NOTE | 2018-06-08 07:56 | PM & R (SOAP) Progress Note ---
Subjective This was a face to face visit with the patient. Date Seen by Provider: Jun 08, 2018 Time Seen by Provider: 07:30 Subjective/Events-last exam Patient was seen in his room this AM Patient Modified Indpendent for transfers.Dr Bobo has spoken to Neurosurgeon yesterday and he wishes that patient be transferred back to if Temp >101.5 degrees,So far Tmax 101.3 spikes at night but responds to Tylenol Objective Physician Exam Last Set of Vital Signs Vital Signs Date Time Temp Pulse Resp B/P (MAP) Pulse Ox O2 Delivery O2 Flow Rate FiO2 06/08/18 06:32 100.3 06/08/18 05:10 85 16 117/52 (73) 97 Room Air Capillary Refill : I&O Intake and Output 06/08/18 00:00 Intake Total 1040 ml Balance 1040 ml Intake Oral 1040 ml # Voids 6 General: Alert, Oriented X3, Cooperative, No Acute Distress HEENT: PERRLA, Mucous Memb Moist/[place], Other (crani site healing well) Neck: Supple, No JVD Lungs: Clear to Auscultation Heart: Regular Rate Abdomen: Normal Bowel Sounds, Soft, No Tenderness Extremities: No Edema Skin: Other (incision healing well) Neuro: Other (Mild rt HP with decreased balance) Results Lab Data Laboratory Tests 06/07/18 05:19: White Blood Count 14.0H, Red Blood Count 4.00L, Hemoglobin 11.8L, Hematocrit 37L , Mean Corpuscular Volume 92, Mean Corpuscular Hemoglobin 30, Mean Corpuscular Hemoglobin Concent 32, Red Cell Distribution Width 15.8H, Platelet Count 348, Mean Platelet Volume 8.6, Sodium Level 136, Potassium Level 3.2L, Chloride Level 101, Carbon Dioxide Level 28, Anion Gap 7, Blood Urea Nitrogen 15, Creatinine 0.72, Estimat Glomerular Filtration Rate > 60, BUN/Creatinine Ratio 21, Glucose Level 84, Calcium Level 8.7 Assessment/Plan Assessment and Plan S/P left frontal crani for benign tumor Postop hyponatremia improved Steroid induced leukocytosis improved Postop fever observe as per above Steroid taper Seizure prophylaxis DVT prophylaxis DVT prophlaxis Plan Continue PT/OT Team Conference later today-See report for functional update and POC and ELOS Monitor fever with plan as per above F/U with Hospitalist service as per above Co-Morbidities that are continuing to impact the rehab process: (include details ) JORDY QUINTANILLA MD Jun 08, 2018 07:56
[2018-06-08 08:35] VITALS: BP 116/83
[2018-06-08 08:36] VITALS: BP 113/71
[2018-06-08] MEDS: SENNA W/DOCUSATE (SENOKOT S) TABLET PO SCH ×2 (08:46→20:51)
[2018-06-08] MEDS: FLUDROCORTISONE 0.1 MG (FLORINEF) TAB PO SCH ×2 (08:46→20:51)
--- NOTE | 2018-06-08 08:51 | Physical Therapy Daily Note ---
PT Daily Note-Current Subjective Patient in bed pre tx, agrees to PT, has pain of 2/10 in right leg. Appearance Patient in bed post tx with nurse call, phone, tray, bed alarm on, all needs met. Mental Status Patient Orientation: Person, Place, Situation Transfers Functional [place] Measure 0=Not Assessed/NA 4=Minimal Assistance 1=Total Assistance 5=Supervision or Setup 2=Maximal Assistance 6=Modified [place] 3=Moderate Assistance 7=Complete IndependenceIRFPAI Quality Coding Scale 6 Independent with activity with or without an assistive device 5 Patient requires set up or clean up by helper. Patient completes activity by themselves 4 Supervision or touching assist (CGA). [place] provide cues , steadying assist 3 The helper provides less than half the effort to complete the activity 2 The helper provides more than half the effort to complete the activity 1 Dependent. The helper does all the effort to complete an activity 7 Patient refused to complete or attempt activity 9 The patient did not perform the activity before the current illness or injury 88 Not attempted due to Medical conditions or safety concerns Transfers (B, C, W/C) (FIM): 5 Scootin Rollin Supine to/from Sit: 6 Sit to/from Stand: 5 Bed to/from Chair: 5 Gait Training Gait (FIM): 5 Distance: 400' Gait Level of Assist: 5 Gait Persons Needed: 1 Gait Assistive Device: None Patient more unsteady with turning, close supervision, unsteady but no full LOB. Exercises Standing: Hamstring curls, Heel/toe raises, 3 way Ex=Flex, Abd, Ext, Marching, Mini squats Standing Reps: 15 NuStep Minutes: 15 NuStep Workload: 5 Treatments bed mobility and transfers, ambulation, functional strengthening Assessment Current Status: Fair Progress Patient more unsteady and shaky. Patient is having a CT scan today. PT Short Term Goals Short Term Goals Time Frame: Jun 10, 2018 Transfers (B,C,W/C) (FIM): 5 Gait (FIM): 5 Gait Distance Comment: 400' Gait Level of Assist: 5 Gait Assistive Device: None PT Director Agricultural Services Goals Fdc Goals PT Director Agricultural Services Goals Time Frame: Jun 24, 2018 Transfers (B,C,W/C) (FIM): 6 Sit to Lying (QC): 6 Lying-Sitting on Side/Bed(QC): 6 Sit to Stand (QC): 6 Rollin Roll Left to Right (QC): 6 Chair/Urz-pv-Gzdej Xfer(QC): 6 Car Transfer (QC): 6 Gait (FIM): 7 Distance: 500' Walk 10 feet (QC): 6 Walk 10ft-Uneven Surface(QC): 6 Walk 50ft with 2 Turns (QC): 6 Walk 150 ft (QC): 6 Gait Assistive Device: None Stairs (FIM): 5 # of Steps: 12 1 Step (curb) (QC): 4 4 Steps (QC): 4 12 Steps (QC): 4 Stairs Level Of Assist: 5 PT Plan Problem List Problem List: Activity Tolerance, Functional Strength, Safety, Balance, Gait, Transfer, Bed Mobility Treatment/Plan Treatment Plan: Continue Plan of Care Treatment Plan: Bed Mobility, Education, Functional Activity Stevie, Functional Strength, Group Therapy, Gait, Safety, Therapeutic Exercise, Transfers Treatment Duration: Jun 24, 2018 Frequency: At least 5 of 7 days/Wk (IRF) Estimated Hrs Per Day: 1.5 hours per day Patient and/or Family Agrees t: Yes Safety Risks/Education Patient Education: Gait Training, Transfer Techniques, Correct Positioning, Safety Issues Teaching Recipient: Patient Teaching Methods: Demonstration, Discussion Response to Teaching: Reinforcement Needed Time/GCodes Time In: 0800 Time Out: 0845 Total Billed Treatment Time: 45 Total Billed Treatment 1 visit GT 15' EX 30' IRMA DEAN PT Jun 08, 2018 08:51
[2018-06-08] MEDS: SODIUM CHLORIDE 1 GM TAB (NON-FORMULARY) PO SCH ×3 (08:57→20:51)
--- NOTE | 2018-06-08 09:22 | Diagnostic Imaging Report ---
PROCEDURE: CT head without contrast. TECHNIQUE: Multiple contiguous axial images were obtained through the brain without the use of intravenous contrast. INDICATION: Brain tumor. Status post craniotomy and tumor removal. Comparison is made with prior CT from 05/16/2018. Since prior CT, the patient has undergone frontal craniotomy and tumor resection. A large enhancing mass with the epicenter in the left lateral ventricle has been resected. There is some minimal residual hyperdensity noted in the midline near the septum pellucidum which may represent a small amount of residual blood versus tumor. No significant mass effect or midline shift is seen. The degree of hydrocephalus has improved. There continues to be some mild prominence of the temporal horns. No sulcal effacement is seen. IMPRESSION: Tumor resection. There is some minimal residual hyperdensity noted at the surgical site in the region of the left frontal horn and septum pellucidum. This may represent blood products versus residual tumor. Continued followup is recommended. Dictated by: Dictated on workstation # [id number]
--- NOTE | 2018-06-08 10:11 | Speech Therapy Daily Note ---
Speech Daily Progress Note Subjective Date Seen by Provider: Jun 08, 2018 Time Seen by Provider: 09:30 Pt in bed. Cooperative. Pain Numeric Pain Scale: 0-No Pain Objective Verbal expression: Naming members described. Pt provided 3 clues and pt was to determine what the clues referred to. Pt reported the task was very difficult. He was 80% accurate with min cues. Assessment Assessment Current Status: Good Progress Treatment Plan Continue Plan of Care Communication Comprehension: 4 Expression: 3 Social Cognition Social Interaction: 7 Problem Solvin (unable to assess due to expressive aphasia.) Memory: 0 (unable to assess due to expresive aphasia) Speech Short Term Goals Short Term Goals Short Term Goals Pt will complete various verbal expressive tasks (naming, sentence completion, sentence formulation with at least 80% accuracy and min assist. Complete cognitive assessment as pt's verbal skills improve. Comprehension: 5 Expression: 4 Social Interaction: 7 Problem Solvin Memory: 0 Speech Chcf Goals Checker Cashier Goals Pt will have functional verbal skills for expressing needs, wants, desires independently. Speech-Plan Patient/Family Goals Patient/Family Goals: to talk better and return home Treatment Plan Speech Therapy Treatment Plan: Continue Plan of Care pt making good progress. Continue with skill ST. Treatment Duration: Jun 06, 2018 Frequency: 5 times per week Estimated Hrs Per Day: 1 hour per day Rehab Potential: Good Pt/Family Agrees to Plan: Yes Safety Risks/Education Teaching Recipient: Patient Teaching Methods: Discussion Response to Teaching: Verbalize Understanding Time Speech Therapy Time In: 09:30 Speech Therapy Time Out: 10:00 Total Billed Time: 30 Billed Treatment Time 1, SLMARLA Kulkarni Jun 08, 2018 10:11
--- NOTE | 2018-06-08 11:18 | Occupational Ther Daily Note ---
OT Current Status-Daily Note Subjective No pain reported. Pt. states that he showered last night. Appearance Pt. in bed. Agrees to work with OT in gym. Mental Status/Objective Patient Orientation: Unable to Assess Functional Price Measure 0=Not Assessed/NA 4=Minimal Assistance 1=Total Assistance 5=Supervision or Setup 2=Maximal Assistance 6=Modified Price 3=Moderate Assistance 7=Complete Price ADL-Treatment Functional Price Measure 0=Not Assessed/NA 4=Minimal Assistance 1=Total Assistance 5=Supervision or Setup 2=Maximal Assistance 6=Modified [place] 3=Moderate Assistance 7=Complete IndependenceIRFPAI Quality Coding Scale 6 Independent with activity with or without an assistive device 5 Patient requires set up or clean up by helper. Patient completes activity by themselves 4 Supervision or touching assist (CGA). [place] provide cues , steadying assist 3 The helper provides less than half the effort to complete the activity 2 The helper provides more than half the effort to complete the activity 1 Dependent. The helper does all the effort to complete an activity 7 Patient refused to complete or attempt activity 9 The patient did not perform the activity before the current illness or injury 88 Not attempted due to Medical conditions or safety concerns Transfers (B, C, W/C) (FIM): 4 (CGA for balance when ambulating. Pt. does not use ambulatory device.) Other Treatment Pt. ambulated to therapy gym with OT. Pt. reports that his hands are doing "okay," but does not report that he is having some tremors, which are noted slightly. Completed armbike x 10 minutes for increased UE strength overall. Pt. then participated in fine motor coordination/strengthening tasks, as well as visual perceptual tasks. Pt. wrote his name 6 times on lined paper, with emphasis to touch top and bottom lines. Pt. is able to do this, but it does seem difficult for him. Requires increased time with this. Pt. also works on coloring sheet with emphasis to color all parts. Noted that pt. has difficulty keeping paper still, as he does not automatically use his right hand to stabilize it. Pt. also worked on cutting with scissors, both straight and rounded lines. Pt able to do so, but does not turn the paper as he goes. Noted that pt. is unaware of his right side unless he has cues. Pt. is educated on importance of attending to right side. Pt. does verbalize understanding, however, pt. does not verbalize that he notices that anything is difficult. Pt. worked on resistive clothespins with right hand for tip pinch. Tolerated this well. Ambulated back to room with all needs met. Education OT Patient Education: Correct positioning, Exercise program, Modified ADL techniques, Progress toward Goal/Update tx plan, Purpose of tx/functional activities, Reviewed precautions, Rehab process, Transfer techniques Teaching Recipient: Patient Teaching Methods: Demonstration, Discussion Response to Teaching: Verbalize Understanding, Return Demonstration OT Short Term Goals Short Term Goals Time Frame: Jun 17, 2018 Eating(FIM): 4 Grooming(FIM): 5 Bathing(FIM): 5 Upper Body Dressing(FIM): 5 Lower Body Dressing(FIM): 5 Toileting(FIM): 5 Transfers (B,C,W/C) (FIM): 5 Toilet/Commode Transfer(FIM): 5 Shower Transfer(FIM): 5 Comprehension(FIM): 5 Expression(FIM): 4 Social Interaction(FIM): 7 Problem Solving(FIM): 0 Memory(FIM): 0 Additional Short Term Goals: 1-Demonstrate ADL Tasks, 2-Verbalize Understanding , 3-ImproveStrength/Stevie 1=Demonstrate adherence to instructed precautions during ADL tasks. 2=Patient will verbalize/demonstrate understanding of assistive devices/ modifications for ADL. 3=Patient will improve strength/tolerance for activity to enable patient to perform ADL's. OT [facility] Goals Director Of Managed Services Goals Time Frame: Jul 01, 2018 Eating (FIM): 7 Eating (QC): 6 Groomin Oral Hygiene (QC): 6 Bathing(FIM): 5 Shower/Bathe Self (QC): 5 Upper Body Dressing(FIM): 6 Upper Body Dressing (QC): 6 Lower Body Dressing(FIM): 6 Lower Body Dressing (QC): 6 On/Off Footwear (QC): 6 Toileting(FIM): 6 Toileting Hygiene (QC): 6 Transfers (B,C,W/C) (FIM): 6 Toilet/Commode Transfer(FIM): 6 Toilet/Commode Transfer (QC): 6 Shower Transfer(FIM): 5 Additional Goals: 1-Demonstrate ADL Tasks, 2-Verbalize Understanding, 3- ImproveStrength/Stevie 1=Demonstrate adherence to instructed precautions during ADL tasks. 2=Patient will verbalize/demonstrate understanding of assistive devices/ modifications for ADL. 3=Patient will improve strength/tolerance for activity to enable patient to perform ADL's. OT Education/Plan Problem List/Assessment Assessment: Decreased Activ Tolerance, Impaired I ADL's, Impaired Self-Care Skills Bed alarm set. Discharge Recommendations Plan/Recommendations: Continue POC Therapy D/C Recommendations: Home w/ Family Support, Occupational Therapy Home Care Treatment Plan/Plan of Care Treatment,Training & Education: Yes Patient would benefit from OT for education, treatment and training to promote independence in ADL's, mobility, safety and/or upper extremity function for ADL' s. Plan of Care: ADL Retraining, Caregiver Training, Cognitive Retraining, Functional Mobility, Group Exercise/Act as Ind, UE Funct Exercise/Act, Visual/ Perceptual Retrain Treatment Duration: Jul 01, 2018 Frequency: At least 5 of 7 days/Wk (IRF) Estimated Hrs Per Day: 1.5 hours per day Agreement: Yes Rehab Potential: Good Time/GCodes Start Time: 10:00 Stop Time: 11:00 Total Time Billed (hr/min): 60 Billed Treatment Time 1, Ex [id number], FA x 45minutes GEOFFREY LONG OT Jun 08, 2018 11:18
--- NOTE | 2018-06-08 14:30 | Therapy Group Daily Note ---
Therapy Daily Group Note Patient Education Topic Other List Below Exercises LE Seated Exercise, UE Exercise Other/Notes Pt ambulated with SBA to therapy gym for OT/PT group. Group consisted of introductions (name, place living, biggest change in life), socialization, adapting to change and pt led UE/LE seated exercises. Pt was able to introduce self appropriately with 2 word answers. Actively listened to other patients throughout group. Pt did not contribute a lot to discussions and conversations , but listened intently to others. Pt able to lead one exercise with minimal assistance. Pt ambulated back to room after group and laid down in bed. All needs met in room. Start Time: 13:00 Stop Time: 14:05 Total Billed Treatment Time: 65 Total Billed Treatment 1-GRP ROGELIO DOLL Jun 08, 2018 14:30
[2018-06-08 16:13] VITALS: BP 116/71
[2018-06-09 06:32] VITALS: BP 106/64
[2018-06-09] MEDS: FLUDROCORTISONE 0.1 MG (FLORINEF) TAB PO SCH ×2 (08:13→20:25)
[2018-06-09] MEDS: SODIUM CHLORIDE 1 GM TAB (NON-FORMULARY) PO SCH ×3 (08:13→20:25)
[2018-06-09] MEDS: SENNA W/DOCUSATE (SENOKOT S) TABLET PO SCH ×2 (08:13→20:25)
--- NOTE | 2018-06-09 08:31 | PM & R (SOAP) Progress Note ---
Subjective This was a face to face visit with the patient. Date Seen by Provider: Jun 09, 2018 Time Seen by Provider: 07:35 Subjective/Events-last exam Patient was seen in his room this AM Patient SBA for transfers- patient continues with low grade fever at night but doing well otherwise Patients Neurosurgeon aware. Objective Physician Exam Last Set of Vital Signs Vital Signs Date Time Temp Pulse Resp B/P (MAP) Pulse Ox O2 Delivery O2 Flow Rate FiO2 06/09/18 06:32 100.2 75 16 106/64 (78) 100 Room Air Capillary Refill : I&O Intake and Output 06/09/18 00:00 Intake Total 950 ml Balance 950 ml Intake Oral 950 ml # Voids 10 # Bowel Movements 1 General: Alert, Oriented X3, Cooperative, No Acute Distress HEENT: PERRLA, Mucous Memb Moist/[place], Other (crani site healing well) Neck: Supple, No JVD Lungs: Clear to Auscultation Heart: Regular Rate Abdomen: Normal Bowel Sounds, Soft, No Tenderness Extremities: No Edema Skin: Other (incision healing well) Neuro: Other (Mild rt HP with decreased balance) Results Lab Data Laboratory Tests 06/07/18 05:19: White Blood Count 14.0H, Red Blood Count 4.00L, Hemoglobin 11.8L, Hematocrit 37L , Mean Corpuscular Volume 92, Mean Corpuscular Hemoglobin 30, Mean Corpuscular Hemoglobin Concent 32, Red Cell Distribution Width 15.8H, Platelet Count 348, Mean Platelet Volume 8.6, Sodium Level 136, Potassium Level 3.2L, Chloride Level 101, Carbon Dioxide Level 28, Anion Gap 7, Blood Urea Nitrogen 15, Creatinine 0.72, Estimat Glomerular Filtration Rate > 60, BUN/Creatinine Ratio 21, Glucose Level 84, Calcium Level 8.7 Assessment/Plan Assessment and Plan S/P left frontal crani for benign tumor Postop hyponatremia improved Steroid induced leukocytosis improved Post op fever remains low grade tylenol Steroid taper Seizure prophylaxis Plan Continue PT/OTTeam Conference hedl yesterday-see report for full functional update and POC and ELOS Co-Morbidities that are continuing to impact the rehab process: (include details ) JORDY QUINTANILLA MD Jun 09, 2018 08:31
--- NOTE | 2018-06-09 09:00 | Physical Therapy Daily Note ---
PT Daily Note-Current Subjective Patient in bed pre tx, agrees to PT, has no complaints of pain. Appearance Patient in bed post tx with nurse call, phone, [place], has OT right after PT. Mental Status Patient Orientation: Person, Place, Situation Transfers Functional [place] Measure 0=Not Assessed/NA 4=Minimal Assistance 1=Total Assistance 5=Supervision or Setup 2=Maximal Assistance 6=Modified [place] 3=Moderate Assistance 7=Complete IndependenceIRFPAI Quality Coding Scale 6 Independent with activity with or without an assistive device 5 Patient requires set up or clean up by helper. Patient completes activity by themselves 4 Supervision or touching assist (CGA). [place] provide cues , steadying assist 3 The helper provides less than half the effort to complete the activity 2 The helper provides more than half the effort to complete the activity 1 Dependent. The helper does all the effort to complete an activity 7 Patient refused to complete or attempt activity 9 The patient did not perform the activity before the current illness or injury 88 Not attempted due to Medical conditions or safety concerns Transfers (B, C, W/C) (FIM): 5 Scootin Rollin Supine to/from Sit: 6 Sit to/from Stand: 5 Bed to/from Chair: 5 patient has some difficulty with supine to sit but is able to do it without assist Gait Training Gait (FIM): 5 Distance: 400'x2 Gait Level of Assist: 5 Gait Persons Needed: 1 Gait Assistive Device: None Better balance with turning, more steady Exercises Standing: Hamstring curls, Heel/toe raises, 3 way Ex=Flex, Abd, Ext, Marching, Mini squats Standing Reps: 15 LAQ alternating for 5 min with 3# ankle weights, sit to stand 3 sets of 10, marching 50', tandem walking 50', sidestepping 50' NuStep Minutes: 15 NuStep Workload: 5 Treatments bed mobility and transfers, ambulation, functional strengthening, balance training Assessment Current Status: Fair Progress improved endurance and balance, less rest breaks PT Short Term Goals Short Term Goals Time Frame: Jun 10, 2018 Transfers (B,C,W/C) (FIM): 5 Gait (FIM): 5 Gait Distance Comment: 400' Gait Level of Assist: 5 Gait Assistive Device: None PT Halfway Goals Entry Level Receptionist Goals PT Entry Level Receptionist Goals Time Frame: Jun 24, 2018 Transfers (B,C,W/C) (FIM): 6 Sit to Lying (QC): 6 Lying-Sitting on Side/Bed(QC): 6 Sit to Stand (QC): 6 Rollin Roll Left to Right (QC): 6 Chair/[id number] Xfer(QC): 6 Car Transfer (QC): 6 Gait (FIM): 7 Distance: 500' Walk 10 feet (QC): 6 Walk 10ft-Uneven Surface(QC): 6 Walk 50ft with 2 Turns (QC): 6 Walk 150 ft (QC): 6 Gait Assistive Device: None Stairs (FIM): 5 # of Steps: 12 1 Step (curb) (QC): 4 4 Steps (QC): 4 12 Steps (QC): 4 Stairs Level Of Assist: 5 PT Plan Problem List Problem List: Activity Tolerance, Functional Strength, Safety, Balance, Gait, Transfer, Bed Mobility Treatment/Plan Treatment Plan: Continue Plan of Care Treatment Plan: Bed Mobility, Education, Functional Activity Stevie, Functional Strength, Group Therapy, Gait, Safety, Therapeutic Exercise, Transfers Treatment Duration: Jun 24, 2018 Frequency: At least 5 of 7 days/Wk (IRF) Estimated Hrs Per Day: 1.5 hours per day Patient and/or Family Agrees t: Yes Safety Risks/Education Patient Education: Gait Training, Transfer Techniques, Correct Positioning, Safety Issues Teaching Recipient: Patient Teaching Methods: Demonstration, Discussion Response to Teaching: Reinforcement Needed Time/GCodes Time In: 0800 Time Out: 0900 Total Billed Treatment Time: 60 Total Billed Treatment 1 visit EX 30' NM 15' GT 15' IRMA DEAN PT Jun 09, 2018 09:00
--- NOTE | 2018-06-09 11:37 | Speech Therapy Daily Note ---
Speech Daily Progress Note Subjective Date Seen by Provider: Jun 09, 2018 Time Seen by Provider: 11:00 Pt standing with knee on bed. Unsure if pt had been walking around his room. He reported that he hadn't. Pain Numeric Pain Scale: 0-No Pain Objective Informal assessment of memory. Pt was shown a picture and then was to identify it from a F:4. Pt was 100% accurate. Confrontational naming of the pictures above was 90% with min assist. Rapid Naming - In one minute the pt was able to name 2 animals in a minute. One less than last time. Assessment Assessment Current Status: Good Progress Treatment Plan Continue Plan of Care Communication Comprehension: 4 Expression: 3 Social Cognition Social Interaction: 7 Problem Solvin (unable to assess due to expressive aphasia.) Memory: 0 (unable to assess due to expresive aphasia) Speech Short Term Goals Short Term Goals Short Term Goals Pt will complete various verbal expressive tasks (naming, sentence completion, sentence formulation with at least 80% accuracy and min assist. Complete cognitive assessment as pt's verbal skills improve. 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 Speech-Plan Patient/Family Goals Patient/Family Goals: to return home Treatment Plan Speech Therapy Treatment Plan: Continue Plan of Care Pt making good progress. Continue with skilled ST. Treatment Duration: Jun 06, 2018 Frequency: 5 times per week Estimated Hrs Per Day: 1 hour per day Rehab Potential: Good Pt/Family Agrees to Plan: Yes Safety Risks/Education Teaching Recipient: Patient Teaching Methods: Discussion Response to Teaching: Verbalize Understanding Time Speech Therapy Time In: 11:00 Speech Therapy Time Out: 11:30 Total Billed Time: 30 Billed Treatment Time 1, MARLA Uriarte Jun 09, 2018 11:37
--- NOTE | 2018-06-09 13:34 | Speech Therapy Daily Note ---
Speech Daily Progress Note Subjective Date Seen by Provider: Jun 09, 2018 Time Seen by Provider: 13:00 Pt in bed. Pleasant and cooperative. Pain Numeric Pain Scale: 0-No Pain Objective Verbal Expression activities: Naming Word Specific Features-pt presented with different features and he would respond with an object that related to the feature. The pt was 100% accurate with mod cues. Sentence completion task having to use more than a single word response was 100 % accurate with min to mod cueing. Assessment Assessment Current Status: Good Progress Treatment Plan Continue Plan of Care Communication Comprehension: 4 Expression: 3 Social Cognition Social Interaction: 7 Problem Solvin (unable to assess due to expressive aphasia.) Memory: 0 (unable to assess due to expresive aphasia) Speech Short Term Goals Short Term Goals Short Term Goals Pt will complete various verbal expressive tasks (naming, sentence completion, sentence formulation with at least 80% accuracy and min assist. Complete cognitive assessment as pt's verbal skills improve. 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 Speech-Plan Patient/Family Goals Patient/Family Goals: to return home Treatment Plan Speech Therapy Treatment Plan: Continue Plan of Care Pt continues to make good steady progress. Treatment Duration: Jun 06, 2018 Frequency: 5 times per week Estimated Hrs Per Day: 1 hour per day Rehab Potential: Good Pt/Family Agrees to Plan: Yes Safety Risks/Education Teaching Recipient: Patient Teaching Methods: Discussion Response to Teaching: Verbalize Understanding Time Speech Therapy Time In: 13:00 Speech Therapy Time Out: 13:00 Total Billed Time: 30 Billed Treatment Time 1, MARLA Uriarte Jun 09, 2018 13:34
--- NOTE | 2018-06-09 13:59 | Occupational Ther Daily Note ---
OT Current Status-Daily Note Subjective No pain reported. Appearance Pt. in bed laying at bottom of bed. Smiles when OT walks in room. Pt. has showered and dressed last night. Pt. agrees to OT session. Mental Status/Objective Patient Orientation: Person Functional [place] Measure 0=Not Assessed/NA 4=Minimal Assistance 1=Total Assistance 5=Supervision or Setup 2=Maximal Assistance 6=Modified [place] 3=Moderate Assistance 7=Complete [place] ADL-Treatment Functional [place] Measure 0=Not Assessed/NA 4=Minimal Assistance 1=Total Assistance 5=Supervision or Setup 2=Maximal Assistance 6=Modified [place] 3=Moderate Assistance 7=Complete IndependenceIRFPAI Quality Coding Scale 6 Independent with activity with or without an assistive device 5 Patient requires set up or clean up by helper. Patient completes activity by themselves 4 Supervision or touching assist (CGA). [place] provide cues , steadying assist 3 The helper provides less than half the effort to complete the activity 2 The helper provides more than half the effort to complete the activity 1 Dependent. The helper does all the effort to complete an activity 7 Patient refused to complete or attempt activity 9 The patient did not perform the activity before the current illness or injury 88 Not attempted due to Medical conditions or safety concerns Lower Body Dressing (FIM): 7 Lower Body Dressing (QC): 6 On/Off Footwear (QC): 6 Transfers (B, C, W/C) (FIM): 5 (SBA for balance.) Pt. ambulated to kitchen area. Pt. was asked to complete three tasks, 1. get a cup of water, 2. retrieve item from high level cabinets, and 3. retrieve item from refridgerator. Pt. states that he understands, but then does not remember what to do. Pt. is given the cues again, and so does get a glass of water. Pt. is able to remember to get items from high cabinet, but then can't remember to get item from refridgerator. When pt. is given the cue of getting item from refridgerator, pt. is unable to find fridge. Requires cues to look to right and ambulate to it. Pt. sits at table and completed task of comparing alan of item. Pt. was asked to find the three best car stereo prices on the internet on his phone. Pt. is unsure of how to research this, even after OT tells him to google it. OT then does this for him, and three stereos and prices come up. Pt. is asked to write them down with the prices. Pt. is able to do this, but it is difficult, and pt. requires increased time. Wrote the alan of one, but needed cues to write all the prices. Once he did this, pt. was asked questions about which alan is largest, etc..... Pt. verbalizes correctly. OT put lau bags on floor and asked pt. to sweet pickle maker the lau bags with shrimping boat captain, keeping the bags on his right side. Pt. is able to do this in slow manner. Noted appropriate balance. Pt. then worked on throwing lau bags into basket with right hand. Pt. had great difficulty with this. Completed 10 minutes on armbike to increase overall strength, and then worked on categorization of items. Pt. was given three similiar items and was asked to put them in a category. Pt. able to do this. However, when pt. was given a category and asked to name three items from it, pt. unable to do this. Pt. ambulated back to his room and all needs met. Education OT Patient Education: Modified ADL techniques, Progress toward Goal/Update tx plan, Purpose of tx/functional activities, Reviewed precautions, Rehab process, Transfer techniques Teaching Recipient: Patient Teaching Methods: Demonstration, Discussion Response to Teaching: Verbalize Understanding, Return Demonstration OT Short Term Goals Short Term Goals Time Frame: Jun 17, 2018 Eating(FIM): 4 Grooming(FIM): 5 Bathing(FIM): 5 Upper Body Dressing(FIM): 5 Lower Body Dressing(FIM): 5 Toileting(FIM): 5 Transfers (B,C,W/C) (FIM): 5 Toilet/Commode Transfer(FIM): 5 Shower Transfer(FIM): 5 Comprehension(FIM): 5 Expression(FIM): 4 Social Interaction(FIM): 7 Problem Solving(FIM): 0 Memory(FIM): 0 Additional Short Term Goals: 1-Demonstrate ADL Tasks, 2-Verbalize Understanding , 3-ImproveStrength/Stevie 1=Demonstrate adherence to instructed precautions during ADL tasks. 2=Patient will verbalize/demonstrate understanding of assistive devices/ modifications for ADL. 3=Patient will improve strength/tolerance for activity to enable patient to perform ADL's. OT Senior Living Goals Automobile Upholstery Trim Installer Goals Time Frame: Jul 01, 2018 Eating (FIM): 7 Eating (QC): 6 Groomin Oral Hygiene (QC): 6 Bathing(FIM): 5 Shower/Bathe Self (QC): 5 Upper Body Dressing(FIM): 6 Upper Body Dressing (QC): 6 Lower Body Dressing(FIM): 6 Lower Body Dressing (QC): 6 On/Off Footwear (QC): 6 Toileting(FIM): 6 Toileting Hygiene (QC): 6 Transfers (B,C,W/C) (FIM): 6 Toilet/Commode Transfer(FIM): 6 Toilet/Commode Transfer (QC): 6 Shower Transfer(FIM): 5 Additional Goals: 1-Demonstrate ADL Tasks, 2-Verbalize Understanding, 3- ImproveStrength/Stevie 1=Demonstrate adherence to instructed precautions during ADL tasks. 2=Patient will verbalize/demonstrate understanding of assistive devices/ modifications for ADL. 3=Patient will improve strength/tolerance for activity to enable patient to perform ADL's. OT Education/Plan Problem List/Assessment Assessment: Decreased Activ Tolerance, Decreased UE Strength, Impaired Cognition, Impaired Coordination, Impaired Funct Balance, Impaired I ADL's, Impaired Self-Care Skills, Visual-Perceptual Deficit Discharge Recommendations Plan/Recommendations: Continue POC Therapy D/C Recommendations: Home w/ Family Support, Occupational Therapy Home Care Treatment Plan/Plan of Care Treatment,Training & Education: Yes Patient would benefit from OT for education, treatment and training to promote independence in ADL's, mobility, safety and/or upper extremity function for ADL' s. Plan of Care: ADL Retraining, Caregiver Training, Cognitive Retraining, Functional Mobility, Group Exercise/Act as Ind, UE Funct Exercise/Act, Visual/ Perceptual Retrain Treatment Duration: Jul 01, 2018 Frequency: At least 5 of 7 days/Wk (IRF) Estimated Hrs Per Day: 1.5 hours per day Agreement: Yes Rehab Potential: Good Time/GCodes Start Time: 09:00 Stop Time: 10:00 Total Time Billed (hr/min): 60 Billed Treatment Time 1, Ex x 10minutes, FA x 50minutes GEOFFREY LONG OT Jun 09, 2018 13:59
[2018-06-09 15:09] VITALS: BP 112/72
[2018-06-10 05:05] VITALS: BP 115/68
[2018-06-10] MEDS: SODIUM CHLORIDE 1 GM TAB (NON-FORMULARY) PO SCH ×3 (08:18→20:42)
[2018-06-10] MEDS: ACETAMINOPHEN 325 MG TABLET PO PRN ×2 (08:18→18:05)
[2018-06-10] MEDS: FLUDROCORTISONE 0.1 MG (FLORINEF) TAB PO SCH ×2 (08:18→20:42)
[2018-06-10] MEDS: SENNA W/DOCUSATE (SENOKOT S) TABLET PO SCH ×2 (08:18→20:42)
--- NOTE | 2018-06-10 08:38 | PM & R (SOAP) Progress Note ---
Subjective This was a face to face visit with the patient. Date Seen by Provider: Jun 10, 2018 Time Seen by Provider: 07:45 Subjective/Events-last exam Patient was seen in his room this AM Patient SBA for transfers.Patient Supervsion for gait witout gait aide Strength and balance much improved Objective Physician Exam Last Set of Vital Signs Vital Signs Date Time Temp Pulse Resp B/P (MAP) Pulse Ox O2 Delivery O2 Flow Rate FiO2 06/10/18 05:05 100.7 85 18 115/68 (84) 100 Room Air Capillary Refill : I&O Intake and Output 06/10/18 00:00 Intake Total 800 ml Balance 800 ml Intake Oral 800 ml # Voids 6 General: Alert, Oriented X3, Cooperative, No Acute Distress HEENT: PERRLA, Mucous Memb Moist/[place], Other (crani site healing well) Neck: Supple, No JVD Lungs: Clear to Auscultation Heart: Regular Rate Abdomen: Normal Bowel Sounds, Soft, No Tenderness Extremities: No Edema Skin: Other (incision healing well) Neuro: Other (Mild rt HP with decreased balance) Assessment/Plan Assessment and Plan S/P left frontal crani for benign tumor Postop hyponatremia improved Postop low grade fever observe-CT Head noted Steroid leukocytosis improved Steroid taper Seizure prophylaxis Plan Continue PT/OT Discharge set for next week to home with family Progressing well Monitor temp neurosugeon from OSH requests transfer back to their facility if temp spikes to 101.5 Co-Morbidities that are continuing to impact the rehab process: (include details ) JORDY QUINTANILLA MD Jun 10, 2018 08:38
--- NOTE | 2018-06-10 09:00 | Physical Therapy Daily Note ---
PT Daily Note-Current Subjective Patient in bed pre tx, agrees to PT, has no complaints of pain. Appearance Patient in bed post tx with nurse call, phone, tray, all needs met. Mental Status Patient Orientation: Person, Place, Situation Transfers Functional [place] Measure 0=Not Assessed/NA 4=Minimal Assistance 1=Total Assistance 5=Supervision or Setup 2=Maximal Assistance 6=Modified [place] 3=Moderate Assistance 7=Complete IndependenceIRFPAI Quality Coding Scale 6 Independent with activity with or without an assistive device 5 Patient requires set up or clean up by helper. Patient completes activity by themselves 4 Supervision or touching assist (CGA). [place] provide cues , steadying assist 3 The helper provides less than half the effort to complete the activity 2 The helper provides more than half the effort to complete the activity 1 Dependent. The helper does all the effort to complete an activity 7 Patient refused to complete or attempt activity 9 The patient did not perform the activity before the current illness or injury 88 Not attempted due to Medical conditions or safety concerns Transfers (B, C, W/C) (FIM): 6 Scootin Rollin Supine to/from Sit: 6 Sit to/from Stand: 6 Bed to/from Chair: 6 Gait Training Gait (FIM): 5 Distance: 3000', 400' Gait Level of Assist: 5 Gait Assistive Device: None Patient ambulated outside over community surfaces (sidewalks, curbs), better turning, no LOB Stair Training Stair Training: Handrails/: 2 handrails Stairs (FIM): 5 #of Steps: 12 Stairs: Pattern: Step to Level of Assist: 5 cues for foot placement descending stairs Exercises Standing: Hamstring curls, Heel/toe raises, 3 way Ex=Flex, Abd, Ext, Marching, Mini squats Standing Reps: 15 LAQ alternating for 5 min with 3# ankle weights NuStep Minutes: 15 NuStep Workload: 5 Treatments ambulation, stairs, functional strengthening Assessment Current Status: Fair Progress improvement continues with balance and ambulation, will tell nurse to have him be independent in his room PT Short Term Goals Short Term Goals Time Frame: Jun 10, 2018 Transfers (B,C,W/C) (FIM): 5 Gait (FIM): 5 Gait Distance Comment: 400' Gait Level of Assist: 5 Gait Assistive Device: None PT Rn Gastroenterology Goals Rn Gastroenterology Goals PT Rn Gastroenterology Goals Time Frame: Jun 24, 2018 Transfers (B,C,W/C) (FIM): 6 Sit to Lying (QC): 6 Lying-Sitting on Side/Bed(QC): 6 Sit to Stand (QC): 6 Rollin Roll Left to Right (QC): 6 Chair/Ckf-qw-Mgwop Xfer(QC): 6 Car Transfer (QC): 6 Gait (FIM): 7 Distance: 500' Walk 10 feet (QC): 6 Walk 10ft-Uneven Surface(QC): 6 Walk 50ft with 2 Turns (QC): 6 Walk 150 ft (QC): 6 Gait Assistive Device: None Stairs (FIM): 5 # of Steps: 12 1 Step (curb) (QC): 4 4 Steps (QC): 4 12 Steps (QC): 4 Stairs Level Of Assist: 5 PT Plan Problem List Problem List: Activity Tolerance, Functional Strength, Safety, Balance, Gait, Transfer Treatment/Plan Treatment Plan: Continue Plan of Care Treatment Plan: Bed Mobility, Education, Functional Activity Stevie, Functional Strength, Group Therapy, Gait, Safety, Therapeutic Exercise, Transfers Treatment Duration: Jun 24, 2018 Frequency: At least 5 of 7 days/Wk (IRF) Estimated Hrs Per Day: 1.5 hours per day Patient and/or Family Agrees t: Yes Safety Risks/Education Patient Education: Gait Training, Transfer Techniques, Steps, Correct Positioning, Safety Issues Teaching Recipient: Patient Teaching Methods: Demonstration, Discussion Response to Teaching: Reinforcement Needed Time/GCodes Time In: 0800 Time Out: 0900 Total Billed Treatment Time: 60 Total Billed Treatment 1 visit EX 30' GT 30' IRMA DEAN PT Jun 10, 2018 09:00
--- NOTE | 2018-06-10 12:47 | Occupational Ther Daily Note ---
OT Current Status-Daily Note Subjective Pt seen in room, up in bed, agreeable to OT. No pain mentioned. Appearance Alert, cooperative Mental Status/Objective Functional [place] Measure 0=Not Assessed/NA 4=Minimal Assistance 1=Total Assistance 5=Supervision or Setup 2=Maximal Assistance 6=Modified [place] 3=Moderate Assistance 7=Complete [place] ADL-Treatment Functional [place] Measure 0=Not Assessed/NA 4=Minimal Assistance 1=Total Assistance 5=Supervision or Setup 2=Maximal Assistance 6=Modified [place] 3=Moderate Assistance 7=Complete IndependenceIRFPAI Quality Coding Scale 6 Independent with activity with or without an assistive device 5 Patient requires set up or clean up by helper. Patient completes activity by themselves 4 Supervision or touching assist (CGA). [place] provide cues , steadying assist 3 The helper provides less than half the effort to complete the activity 2 The helper provides more than half the effort to complete the activity 1 Dependent. The helper does all the effort to complete an activity 7 Patient refused to complete or attempt activity 9 The patient did not perform the activity before the current illness or injury 88 Not attempted due to Medical conditions or safety concerns Other Treatment Pt got up from bed and put shoes on without help. He walked without assist and and with no LOB to gym. He did coordination activity with duplicating block patterns with 1" cubes, cues needed to use R hand (he is left handed). He had difficulty initially with moving from 2 dimensional to three dimensional patterns and also with fine placement of cubes. Standardized strength and coordination testing completed: Packaging Mechanic: R 47, 35, 32 lb (average 38 lb) L 68, 55, 73 lb (average 65.3 lb) Pinch: R L Lateral 10 15 3 jaw sanford 7 14 Tip 4 6 Box and Blocks Gross Motor: R 29 blocks, L 42 blocks 9 hole peg test (Fine Motor) R 45.63 seconds L 26.99 seconds Grooved Pegboard (Fine Motor) R 4 min 53 seconds L 1 min 27 seconds Strength and coordination are impaired compared to L UE but he is able to manipulate the tools and tasks, although slowly. He worked with manipulating and stacking medicine cups and, by end of tx was able to accurately stack 21 cups into a pyramid, all lined up and closely spaced , not losing any during the process. Pt pleased with progress! Pt walked back to room and was left up at EOB. He has medicine cups in room to practice for coordination Education OT Patient Education: Progress toward Goal/Update tx plan, Purpose of tx/ functional activities Teaching Recipient: Patient Teaching Methods: Demonstration, Discussion Response to Teaching: Verbalize Understanding, Return Demonstration OT Short Term Goals Short Term Goals Time Frame: Jun 17, 2018 Eating(FIM): 4 Grooming(FIM): 5 Bathing(FIM): 5 Upper Body Dressing(FIM): 5 Lower Body Dressing(FIM): 5 Toileting(FIM): 5 Transfers (B,C,W/C) (FIM): 5 Toilet/Commode Transfer(FIM): 5 Shower Transfer(FIM): 5 Comprehension(FIM): 5 Expression(FIM): 4 Social Interaction(FIM): 7 Problem Solving(FIM): 0 Memory(FIM): 0 Additional Short Term Goals: 1-Demonstrate ADL Tasks, 2-Verbalize Understanding , 3-ImproveStrength/Stevie 1=Demonstrate adherence to instructed precautions during ADL tasks. 2=Patient will verbalize/demonstrate understanding of assistive devices/ modifications for ADL. 3=Patient will improve strength/tolerance for activity to enable patient to perform ADL's. OT Clinical Informatics Manager Goals [facility] Goals Time Frame: Jul 01, 2018 Eating (FIM): 7 Eating (QC): 6 Groomin Oral Hygiene (QC): 6 Bathing(FIM): 5 Shower/Bathe Self (QC): 5 Upper Body Dressing(FIM): 6 Upper Body Dressing (QC): 6 Lower Body Dressing(FIM): 6 Lower Body Dressing (QC): 6 On/Off Footwear (QC): 6 Toileting(FIM): 6 Toileting Hygiene (QC): 6 Transfers (B,C,W/C) (FIM): 6 Toilet/Commode Transfer(FIM): 6 Toilet/Commode Transfer (QC): 6 Shower Transfer(FIM): 5 Additional Goals: 1-Demonstrate ADL Tasks, 2-Verbalize Understanding, 3- ImproveStrength/Steive 1=Demonstrate adherence to instructed precautions during ADL tasks. 2=Patient will verbalize/demonstrate understanding of assistive devices/ modifications for ADL. 3=Patient will improve strength/tolerance for activity to enable patient to perform ADL's. OT Education/Plan Discharge Recommendations Plan/Recommendations: Continue POC Treatment Plan/Plan of Care Patient would benefit from OT for education, treatment and training to promote independence in ADL's, mobility, safety and/or upper extremity function for ADL' s. Plan of Care: ADL Retraining, Caregiver Training, Cognitive Retraining, Functional Mobility, Group Exercise/Act as Ind, UE Funct Exercise/Act, Visual/ Perceptual Retrain Treatment Duration: Jul 01, 2018 Frequency: At least 5 of 7 days/Wk (IRF) Estimated Hrs Per Day: 1.5 hours per day Agreement: Yes Rehab Potential: Good Time/GCodes Start Time: 09:00 Stop Time: 10:00 Total Time Billed (hr/min): 60 Billed Treatment Time visit, 60 minutes neuromotor BOOKER LOPEZ OT Jun 10, 2018 12:47
--- NOTE | 2018-06-10 13:32 | Physical Therapy Daily Note ---
PT Daily Note-Current Subjective Patient sitting EOB pre tx, agrees to PT, no complaints of pain. Appearance Patient sitting EOB post tx, has nurse call, phone, tray, all needs met. Mental Status Patient Orientation: Person, Place, Situation Transfers Functional [place] Measure 0=Not Assessed/NA 4=Minimal Assistance 1=Total Assistance 5=Supervision or Setup 2=Maximal Assistance 6=Modified [place] 3=Moderate Assistance 7=Complete IndependenceIRFPAI Quality Coding Scale 6 Independent with activity with or without an assistive device 5 Patient requires set up or clean up by helper. Patient completes activity by themselves 4 Supervision or touching assist (CGA). [place] provide cues , steadying assist 3 The helper provides less than half the effort to complete the activity 2 The helper provides more than half the effort to complete the activity 1 Dependent. The helper does all the effort to complete an activity 7 Patient refused to complete or attempt activity 9 The patient did not perform the activity before the current illness or injury 88 Not attempted due to Medical conditions or safety concerns Transfers (B, C, W/C) (FIM): 6 Sit to/from Stand: 6 Bed to/from Chair: 6 Gait Training Gait (FIM): 6 Distance: 400' Gait Assistive Device: None no unsteadiness with turning Exercises LAQ alternating for 5 min Neuromuscular balance activities: tandem walking, side stepping, marching, stepping over obstacles, balance activities with airex (step-ups and turning) Treatments balance training, functional strengthening, ambulation Assessment Current Status: Fair Progress improving balance PT Short Term Goals Short Term Goals Time Frame: Jun 10, 2018 Transfers (B,C,W/C) (FIM): 5 Gait (FIM): 5 Gait Distance Comment: 400' Gait Level of Assist: 5 Gait Assistive Device: None PT Usp Goals Train Announcer Goals PT [facility] Goals Time Frame: Jun 24, 2018 Transfers (B,C,W/C) (FIM): 6 Sit to Lying (QC): 6 Lying-Sitting on Side/Bed(QC): 6 Sit to Stand (QC): 6 Rollin Roll Left to Right (QC): 6 Chair/Fcl-mq-Mgtdd Xfer(QC): 6 Car Transfer (QC): 6 Gait (FIM): 7 Distance: 500' Walk 10 feet (QC): 6 Walk 10ft-Uneven Surface(QC): 6 Walk 50ft with 2 Turns (QC): 6 Walk 150 ft (QC): 6 Gait Assistive Device: None Stairs (FIM): 5 # of Steps: 12 1 Step (curb) (QC): 4 4 Steps (QC): 4 12 Steps (QC): 4 Stairs Level Of Assist: 5 PT Plan Problem List Problem List: Activity Tolerance, Functional Strength, Safety, Balance, Gait, Transfer Treatment/Plan Treatment Plan: Continue Plan of Care Treatment Plan: Bed Mobility, Education, Functional Activity Stevie, Functional Strength, Group Therapy, Gait, Safety, Therapeutic Exercise, Transfers Treatment Duration: Jun 24, 2018 Frequency: At least 5 of 7 days/Wk (IRF) Estimated Hrs Per Day: 1.5 hours per day Patient and/or Family Agrees t: Yes Safety Risks/Education Patient Education: Gait Training, Transfer Techniques, Correct Positioning, Safety Issues Teaching Recipient: Patient Teaching Methods: Demonstration, Discussion Response to Teaching: Reinforcement Needed Time/GCodes Time In: 1300 Time Out: 1330 Total Billed Treatment Time: 30 Total Billed Treatment 1 visit NM 30' IRMA DEAN PT Jun 10, 2018 13:32
--- NOTE | 2018-06-10 15:20 | Speech Therapy Daily Note ---
Speech Daily Progress Note Subjective Date Seen by Provider: Jun 10, 2018 Time Seen by Provider: 11:15 Pt in bed, pleasant and cooperative. Pain Numeric Pain Scale: 0-No Pain Objective Verbal expressive tasks: Pt was given 3 clues by PICK PULLING MACHINE OPERATOR and the pt was to determine what object is being described. Pt was 80% accurate with min cues. Pt was provided a specific category and he was to name one example. Pt was 90% accurate with min cues. Assessment Assessment Current Status: Good Progress Treatment Plan Continue Plan of Care Communication Comprehension: 4 Expression: 3 Social Cognition Social Interaction: 7 Problem Solvin (unable to assess due to expressive aphasia.) Memory: 0 (unable to assess due to expresive aphasia) Speech Short Term Goals Short Term Goals Short Term Goals Pt will complete various verbal expressive tasks (naming, sentence completion, sentence formulation with at least 80% accuracy and min assist. Complete cognitive assessment as pt's verbal skills improve. Comprehension: 5 Expression: 4 Social Interaction: 7 Problem Solvin Memory: 0 Speech Neurology Stroke Physician Goals Neurology Stroke Physician Goals Pt will have functional verbal skills for expressing needs, wants, desires independently. Speech-Plan Patient/Family Goals Patient/Family Goals: to return home Treatment Plan Speech Therapy Treatment Plan: Continue Plan of Care Pt making good progress, continue POC Treatment Duration: Jun 06, 2018 Frequency: 5 times per week Estimated Hrs Per Day: 1 hour per day Rehab Potential: Good Pt/Family Agrees to Plan: Yes Safety Risks/Education Teaching Recipient: Patient Teaching Methods: Discussion Response to Teaching: Verbalize Understanding Time Speech Therapy Time In: 11:15 Speech Therapy Time Out: 11:45 Total Billed Time: 30 Billed Treatment Time 1, MARLA Uriarte Jun 10, 2018 15:20
[2018-06-10 18:00] VITALS: BP 119/78
[2018-06-11 05:00] VITALS: BP 112/71
[2018-06-11] MEDS: SODIUM CHLORIDE 1 GM TAB (NON-FORMULARY) PO SCH ×3 (08:36→21:03)
[2018-06-11] MEDS: FLUDROCORTISONE 0.1 MG (FLORINEF) TAB PO SCH ×2 (08:37→21:02)
[2018-06-11] MEDS: SENNA W/DOCUSATE (SENOKOT S) TABLET PO SCH ×2 (08:37→21:02)
--- NOTE | 2018-06-11 10:43 | Physical Therapy Daily Note ---
PT Daily Note-Current Subjective Pt. in bed and agrees to therapy. He denies pain or issues. Transfers Functional [place] Measure 0=Not Assessed/NA 4=Minimal Assistance 1=Total Assistance 5=Supervision or Setup 2=Maximal Assistance 6=Modified [place] 3=Moderate Assistance 7=Complete IndependenceIRFPAI Quality Coding Scale 6 Independent with activity with or without an assistive device 5 Patient requires set up or clean up by helper. Patient completes activity by themselves 4 Supervision or touching assist (CGA). [place] provide cues , steadying assist 3 The helper provides less than half the effort to complete the activity 2 The helper provides more than half the effort to complete the activity 1 Dependent. The helper does all the effort to complete an activity 7 Patient refused to complete or attempt activity 9 The patient did not perform the activity before the current illness or injury 88 Not attempted due to Medical conditions or safety concerns Transfers (B, C, W/C) (FIM): 6 Supine to/from Sit: 7 Sit to/from Stand: 6 Gait Training Does the Patient Walk?: Yes Gait (FIM): 6 Distance (FIM): 3=150 ft Distance: 300 ft Gait Level of Assist: 6 Gait Assistive Device: None pt. occasionally has lateral deviations in gait path but no tatiana LOB. Stair Training Stair Training: Handrails/: 1 handrail Stairs (FIM): 5 #of Steps: 16 Stairs: Pattern: Reciprocal Level of Assist: 5 initially step to pattern progressing to reciprocal pattern Exercises NuStep Minutes: 10 NuStep Workload: 6 Treatments exercise, gait, stair training Assessment Current Status: Good Progress Pt. did well with all activities and is progressing towards full independence. PT Short Term Goals Short Term Goals Time Frame: Jun 10, 2018 Transfers (B,C,W/C) (FIM): 5 Gait (FIM): 5 Gait Distance Comment: 400' Gait Level of Assist: 5 Gait Assistive Device: None PT [facility]dc Goals Emergency Management Consultant Goals PT Emergency Management Consultant Goals Time Frame: Jun 24, 2018 Transfers (B,C,W/C) (FIM): 6 Sit to Lying (QC): 6 Lying-Sitting on Side/Bed(QC): 6 Sit to Stand (QC): 6 Rollin Roll Left to Right (QC): 6 Chair/Pcx-ej-Ajegv Xfer(QC): 6 Car Transfer (QC): 6 Gait (FIM): 7 Distance: 500' Walk 10 feet (QC): 6 Walk 10ft-Uneven Surface(QC): 6 Walk 50ft with 2 Turns (QC): 6 Walk 150 ft (QC): 6 Gait Assistive Device: None Stairs (FIM): 5 # of Steps: 12 1 Step (curb) (QC): 4 4 Steps (QC): 4 12 Steps (QC): 4 Stairs Level Of Assist: 5 PT Plan Treatment/Plan Treatment Plan: Continue Plan of Care Treatment Plan: Bed Mobility, Education, Functional Activity Stevie, Functional Strength, Group Therapy, Gait, Safety, Therapeutic Exercise, Transfers Treatment Duration: Jun 24, 2018 Frequency: At least 5 of 7 days/Wk (IRF) Estimated Hrs Per Day: 1.5 hours per day Patient and/or Family Agrees t: Yes Time/GCodes Time In: 821 Time Out: 836 Total Billed Treatment Time: 15 Total Billed Treatment 1, Ex 10', (GT 5') SHUKRI CAMPOS PT Jun 11, 2018 10:43
[2018-06-11] MEDS: ACETAMINOPHEN 325 MG TABLET PO PRN (16:44)
[2018-06-11 18:01] VITALS: BP 121/78
[2018-06-12 05:02] VITALS: BP 109/72
[2018-06-12 05:15] LABS: BUN/CREATININE RATIO 14; CARBON DIOXIDE 25 MMOL/L (21-32); CHLORIDE 101 MMOL/L (98-107); GFR ESTIMATED > 60; GLUCOSE 105 MG/DL (70-105); POTASSIUM 3.6 MMOL/L (3.6-5.0); SODIUM 135 MMOL/L (135-145)
[2018-06-12] MEDS: SENNA W/DOCUSATE (SENOKOT S) TABLET PO SCH ×2 (08:20→20:15)
[2018-06-12] MEDS: SODIUM CHLORIDE 1 GM TAB (NON-FORMULARY) PO SCH ×3 (08:21→20:15)
[2018-06-12] MEDS: FLUDROCORTISONE 0.1 MG (FLORINEF) TAB PO SCH ×2 (08:21→20:15)
[2018-06-12] MEDS: ACETAMINOPHEN 325 MG TABLET PO PRN (17:25)
[2018-06-12 17:43] VITALS: BP 130/82
[2018-06-13 06:00] VITALS: BP 116/71
[2018-06-13] MEDS: FLUDROCORTISONE 0.1 MG (FLORINEF) TAB PO SCH ×2 (09:12→21:53)
[2018-06-13] MEDS: SENNA W/DOCUSATE (SENOKOT S) TABLET PO SCH ×2 (10:01→21:53)
[2018-06-13] MEDS: SODIUM CHLORIDE 1 GM TAB (NON-FORMULARY) PO SCH ×3 (10:01→21:53)
--- NOTE | 2018-06-13 10:30 | Physical Therapy Daily Note ---
PT Daily Note-Current Subjective Pt. speaks very little except to answer questions but states he is doing fine. Comments on the tremors in R U&L extremities Pain Numeric Pain Scale: 0-No Pain Mental Status Patient Orientation: Person, Place, Time, Situation Transfers Functional [place] Measure 0=Not Assessed/NA 4=Minimal Assistance 1=Total Assistance 5=Supervision or Setup 2=Maximal Assistance 6=Modified [place] 3=Moderate Assistance 7=Complete IndependenceIRFPAI Quality Coding Scale 6 Independent with activity with or without an assistive device 5 Patient requires set up or clean up by helper. Patient completes activity by themselves 4 Supervision or touching assist (CGA). [place] provide cues , steadying assist 3 The helper provides less than half the effort to complete the activity 2 The helper provides more than half the effort to complete the activity 1 Dependent. The helper does all the effort to complete an activity 7 Patient refused to complete or attempt activity 9 The patient did not perform the activity before the current illness or injury 88 Not attempted due to Medical conditions or safety concerns Transfers (B, C, W/C) (FIM): 6 Scootin Rollin Supine to/from Sit: 6 Sit to/from Stand: 6 Bed to/from Chair: 6 Pt. appraoches TRFs with awkward fashion, verging on unsafe and required some instruction however pt. did not regard/heed instruction. likely cognitive issue. pt. did not have any LOB Gait Training Does the Patient Walk?: Yes Gait (FIM): 6 Distance (FIM): 3=150 ft (250x3) Gait Level of Assist: 6 Gait Persons Needed: 0 Gait Assistive Device: None challenged pt. with balance for tight fig 8s, narrow based stance with eyes closed etc., no LOB Wheelchair Training Does the Pt Use a Wheelchair?: No Stair Training Stair Training: Handrails/: 2 handrails Stairs (FIM): 6 #of Steps: 12 Stairs: Pattern: Reciprocal Exercises Supine Ex: Bridging, Ankle pumps, Quad Set, Rolling, Glut sets, Heel Slides, Short Arc Quads, Scooting, Straight leg raise, Hip abd/add Supine Reps: 20 prone and sidelying exercises x 15 Treatments tall kneeling and walking on knees as well as balance challenges on knees Assessment Current Status: Good Progress PT Short Term Goals Short Term Goals Time Frame: Jun 10, 2018 Transfers (B,C,W/C) (FIM): 5 Gait (FIM): 5 Gait Distance Comment: 400' Gait Level of Assist: 5 Gait Assistive Device: None PT Penitentiary Goals Penitentiary Goals PT Penitentiary Goals Time Frame: Jun 24, 2018 Transfers (B,C,W/C) (FIM): 6 Sit to Lying (QC): 6 Lying-Sitting on Side/Bed(QC): 6 Sit to Stand (QC): 6 Rollin Roll Left to Right (QC): 6 Chair/Bwz-pq-Qmnmc Xfer(QC): 6 Car Transfer (QC): 6 Gait (FIM): 7 Distance: 500' Walk 10 feet (QC): 6 Walk 10ft-Uneven Surface(QC): 6 Walk 50ft with 2 Turns (QC): 6 Walk 150 ft (QC): 6 Gait Assistive Device: None Stairs (FIM): 5 # of Steps: 12 1 Step (curb) (QC): 4 4 Steps (QC): 4 12 Steps (QC): 4 Stairs Level Of Assist: 5 PT Plan Treatment/Plan Treatment Plan: Continue Plan of Care Treatment Plan: Bed Mobility, Education, Functional Activity Stevie, Functional Strength, Group Therapy, Gait, Safety, Therapeutic Exercise, Transfers Treatment Duration: Jun 24, 2018 Frequency: At least 5 of 7 days/Wk (IRF) Estimated Hrs Per Day: 1.5 hours per day Patient and/or Family Agrees t: Yes Safety Risks/Education Patient Education: Gait Training, Transfer Techniques, Correct Positioning, Safety Issues Teaching Recipient: Patient Teaching Methods: Demonstration, Discussion Response to Teaching: Verbalize Understanding, Return Demonstration, Reinforcement Needed Time/GCodes Time In: 930 Time Out: 1030 Total Billed Treatment Time: 60 Total Billed Treatment 1,EX40m,GT20m G Codes Necessary: RAFAEL Rocha MAINS AND SERVICE SUPERVISOR Jun 13, 2018 10:30
--- NOTE | 2018-06-13 13:21 | Physical Therapy Daily Note ---
PT Daily Note-Current Subjective Pt. agrees to Rx. Pain Numeric Pain Scale: 0-No Pain Transfers Functional [place] Measure 0=Not Assessed/NA 4=Minimal Assistance 1=Total Assistance 5=Supervision or Setup 2=Maximal Assistance 6=Modified [place] 3=Moderate Assistance 7=Complete IndependenceIRFPAI Quality Coding Scale 6 Independent with activity with or without an assistive device 5 Patient requires set up or clean up by helper. Patient completes activity by themselves 4 Supervision or touching assist (CGA). [place] provide cues , steadying assist 3 The helper provides less than half the effort to complete the activity 2 The helper provides more than half the effort to complete the activity 1 Dependent. The helper does all the effort to complete an activity 7 Patient refused to complete or attempt activity 9 The patient did not perform the activity before the current illness or injury 88 Not attempted due to Medical conditions or safety concerns all TRFs indep Gait Training Does the Patient Walk?: Yes Gait Assistive Device: None [id number] no LOB Exercises Standing: Hip Abduction, Hamstring curls, Heel/toe raises, Marching, Mini squats, Sit to Stand Standing Reps: 15 NuStep Minutes: 12 NuStep Workload: 6 Assessment Current Status: Good Progress PT Short Term Goals Short Term Goals Time Frame: Jun 10, 2018 Transfers (B,C,W/C) (FIM): 5 Gait (FIM): 5 Gait Distance Comment: 400' Gait Level of Assist: 5 Gait Assistive Device: None PT [facility] Goals Captain/Check Airman Goals PT Captain/Check Airman Goals Time Frame: Jun 24, 2018 Transfers (B,C,W/C) (FIM): 6 Sit to Lying (QC): 6 Lying-Sitting on Side/Bed(QC): 6 Sit to Stand (QC): 6 Rollin Roll Left to Right (QC): 6 Chair/Wsb-qc-Ffoed Xfer(QC): 6 Car Transfer (QC): 6 Gait (FIM): 7 Distance: 500' Walk 10 feet (QC): 6 Walk 10ft-Uneven Surface(QC): 6 Walk 50ft with 2 Turns (QC): 6 Walk 150 ft (QC): 6 Gait Assistive Device: None Stairs (FIM): 5 # of Steps: 12 1 Step (curb) (QC): 4 4 Steps (QC): 4 12 Steps (QC): 4 Stairs Level Of Assist: 5 PT Plan Treatment/Plan Treatment Plan: Continue Plan of Care Treatment Plan: Bed Mobility, Education, Functional Activity Stevie, Functional Strength, Group Therapy, Gait, Safety, Therapeutic Exercise, Transfers Treatment Duration: Jun 24, 2018 Frequency: At least 5 of 7 days/Wk (IRF) Estimated Hrs Per Day: 1.5 hours per day Patient and/or Family Agrees t: Yes Safety Risks/Education Patient Education: Gait Training, Transfer Techniques, Correct Positioning, Safety Issues Teaching Recipient: Patient Teaching Methods: Demonstration, Discussion Response to Teaching: Verbalize Understanding, Return Demonstration, Reinforcement Needed Time/GCodes Time In: 1300 Time Out: 1320 Total Billed Treatment Time: 20 Total Billed Treatment 1,EX20m G Codes Necessary: No RAFAEL SYED CHEMICAL PROCESS OPERATOR Jun 13, 2018 13:21
--- NOTE | 2018-06-13 14:02 | Speech Therapy Daily Note ---
Speech Daily Progress Note Subjective Date Seen by Provider: Jun 13, 2018 Time Seen by Provider: 13:00 Pt in bed. Alert and cooperative. Pain Numeric Pain Scale: 0-No Pain Objective Verbal expression - Sentence completion requiring more than one word response. Pt was 95% accurate with min assist. Situational sentences in which the pt was presented with a situation and he would have to provide a response. Pt was 90% with min cues. Assessment Assessment Current Status: Good Progress Treatment Plan Continue Plan of Care Communication Comprehension: 4 Expression: 3 Social Cognition Social Interaction: 7 Problem Solvin (unable to assess due to expressive aphasia.) Memory: 0 (unable to assess due to expresive aphasia) Speech Short Term Goals Short Term Goals Short Term Goals Pt will complete various verbal expressive tasks (naming, sentence completion, sentence formulation with at least 80% accuracy and min assist. Complete cognitive assessment as pt's verbal skills improve. Comprehension: 5 Expression: 4 Social Interaction: 7 Problem Solvin Memory: 0 Speech Fdc Goals Fdc Goals Pt will have functional verbal skills for expressing needs, wants, desires independently. Speech-Plan Patient/Family Goals Patient/Family Goals: to return home. Treatment Plan Speech Therapy Treatment Plan: Continue Plan of Care pt continues to make good progress. Treatment Duration: Jun 06, 2018 Frequency: 5 times per week Estimated Hrs Per Day: .5 hour per day Rehab Potential: Good Pt/Family Agrees to Plan: Yes Time Speech Therapy Time In: 13:00 Speech Therapy Time Out: 13:30 Total Billed Time: 30 Billed Treatment Time 1, NAE SILVERMANHerberth MICHEL Jun 13, 2018 14:02
--- NOTE | 2018-06-13 16:13 | Occupational Ther Daily Note ---
OT Current Status-Daily Note Subjective No pain reported. Appearance Pt. in bed. Already dressed. States that he showered last night. Agrees to work with OT. Mental Status/Objective Patient Orientation: Person, Place, Time, Situation Functional [place] Measure 0=Not Assessed/NA 4=Minimal Assistance 1=Total Assistance 5=Supervision or Setup 2=Maximal Assistance 6=Modified [place] 3=Moderate Assistance 7=Complete [place] ADL-Treatment Functional [place] Measure 0=Not Assessed/NA 4=Minimal Assistance 1=Total Assistance 5=Supervision or Setup 2=Maximal Assistance 6=Modified [place] 3=Moderate Assistance 7=Complete IndependenceIRFPAI Quality Coding Scale 6 Independent with activity with or without an assistive device 5 Patient requires set up or clean up by helper. Patient completes activity by themselves 4 Supervision or touching assist (CGA). [place] provide cues , steadying assist 3 The helper provides less than half the effort to complete the activity 2 The helper provides more than half the effort to complete the activity 1 Dependent. The helper does all the effort to complete an activity 7 Patient refused to complete or attempt activity 9 The patient did not perform the activity before the current illness or injury 88 Not attempted due to Medical conditions or safety concerns Transfers (B, C, W/C) (FIM): 5 (Supervision for ambulation.) Other Treatment Pt. agreed to work with OT. Ambulated to therapy gym with supervision. Completed armbike x 10 minutes to increase overall UE strength. Ambulated back to room. All needs met. Education OT Patient Education: Correct positioning, Exercise program, Progress toward Goal/Update tx plan, Purpose of tx/functional activities, Reviewed precautions, Rehab process, Transfer techniques Teaching Recipient: Patient Teaching Methods: Demonstration, Discussion Response to Teaching: Verbalize Understanding, Return Demonstration OT Short Term Goals Short Term Goals Time Frame: Jun 17, 2018 Eating(FIM): 4 Grooming(FIM): 5 Bathing(FIM): 5 Upper Body Dressing(FIM): 5 Lower Body Dressing(FIM): 5 Toileting(FIM): 5 Transfers (B,C,W/C) (FIM): 5 Toilet/Commode Transfer(FIM): 5 Shower Transfer(FIM): 5 Comprehension(FIM): 5 Expression(FIM): 4 Social Interaction(FIM): 7 Problem Solving(FIM): 0 Memory(FIM): 0 Additional Short Term Goals: 1-Demonstrate ADL Tasks, 2-Verbalize Understanding , 3-ImproveStrength/Stevie 1=Demonstrate adherence to instructed precautions during ADL tasks. 2=Patient will verbalize/demonstrate understanding of assistive devices/ modifications for ADL. 3=Patient will improve strength/tolerance for activity to enable patient to perform ADL's. OT [employer] Goals [employer] Goals Time Frame: Jul 01, 2018 Eating (FIM): 7 Eating (QC): 6 Groomin Oral Hygiene (QC): 6 Bathing(FIM): 5 Shower/Bathe Self (QC): 5 Upper Body Dressing(FIM): 6 Upper Body Dressing (QC): 6 Lower Body Dressing(FIM): 6 Lower Body Dressing (QC): 6 On/Off Footwear (QC): 6 Toileting(FIM): 6 Toileting Hygiene (QC): 6 Transfers (B,C,W/C) (FIM): 6 Toilet/Commode Transfer(FIM): 6 Toilet/Commode Transfer (QC): 6 Shower Transfer(FIM): 5 Additional Goals: 1-Demonstrate ADL Tasks, 2-Verbalize Understanding, 3- ImproveStrength/Stevie 1=Demonstrate adherence to instructed precautions during ADL tasks. 2=Patient will verbalize/demonstrate understanding of assistive devices/ modifications for ADL. 3=Patient will improve strength/tolerance for activity to enable patient to perform ADL's. OT Education/Plan Problem List/Assessment Assessment: Decreased Activ Tolerance, Impaired I ADL's Discharge Recommendations Plan/Recommendations: Continue POC Therapy D/C Recommendations: Home w/ Family Support Treatment Plan/Plan of Care Treatment,Training & Education: Yes Patient would benefit from OT for education, treatment and training to promote independence in ADL's, mobility, safety and/or upper extremity function for ADL' s. Plan of Care: ADL Retraining, Caregiver Training, Cognitive Retraining, Functional Mobility, Group Exercise/Act as Ind, UE Funct Exercise/Act, Visual/ Perceptual Retrain Treatment Duration: Jul 01, 2018 Frequency: At least 5 of 7 days/Wk (IRF) Estimated Hrs Per Day: 1.5 hours per day Agreement: Yes Rehab Potential: Good Time/GCodes Start Time: 08:45 Stop Time: 09:00 Total Time Billed (hr/min): 15 Billed Treatment Time 1, Ex GEOFFREY LONG OT Jun 13, 2018 16:13
--- NOTE | 2018-06-13 16:20 | Occupational Ther Daily Note ---
OT Current Status-Daily Note Subjective No pain reported. Appearance Pt. up in chair. Agrees to work with OT. Mental Status/Objective Patient Orientation: Person, Place Functional [place] Measure 0=Not Assessed/NA 4=Minimal Assistance 1=Total Assistance 5=Supervision or Setup 2=Maximal Assistance 6=Modified [place] 3=Moderate Assistance 7=Complete [place] ADL-Treatment Functional [place] Measure 0=Not Assessed/NA 4=Minimal Assistance 1=Total Assistance 5=Supervision or Setup 2=Maximal Assistance 6=Modified [place] 3=Moderate Assistance 7=Complete IndependenceIRFPAI Quality Coding Scale 6 Independent with activity with or without an assistive device 5 Patient requires set up or clean up by helper. Patient completes activity by themselves 4 Supervision or touching assist (CGA). [place] provide cues , steadying assist 3 The helper provides less than half the effort to complete the activity 2 The helper provides more than half the effort to complete the activity 1 Dependent. The helper does all the effort to complete an activity 7 Patient refused to complete or attempt activity 9 The patient did not perform the activity before the current illness or injury 88 Not attempted due to Medical conditions or safety concerns Transfers (B, C, W/C) (FIM): 5 Other Treatment Pt. ambulated to therapy dining area. Worked on series of cognitive activities. Pt. worked on check writing, organizational skills, and searching the internet for basic items, which he is used to doing. Pt. demonstrated great difficulty with this. Pt. able to write checks, but left out several parts. Pt. also able to find the things he was asked to look for, but required a large amount of time. Pt. given paper of items to complete in a day, and was asked to organize them. Pt. unable to do so. Also noted that pt. had great difficulty concentrating in noisy environment. Pt. educated that in the future , while he is still healing, that he may need to remove himself from outside noise if he is trying to complete something difficult. Pt. verbalizes understanding, but does demonstrate poor awareness at times of deficits. All needs met back in room. Education OT Patient Education: Correct positioning, Progress toward Goal/Update tx plan , Purpose of tx/functional activities, Reviewed precautions, Rehab process, Transfer techniques Teaching Recipient: Patient Teaching Methods: Demonstration, Discussion Response to Teaching: Verbalize Understanding, Return Demonstration OT Short Term Goals Short Term Goals Time Frame: Jun 17, 2018 Eating(FIM): 4 Grooming(FIM): 5 Bathing(FIM): 5 Upper Body Dressing(FIM): 5 Lower Body Dressing(FIM): 5 Toileting(FIM): 5 Transfers (B,C,W/C) (FIM): 5 Toilet/Commode Transfer(FIM): 5 Shower Transfer(FIM): 5 Comprehension(FIM): 5 Expression(FIM): 4 Social Interaction(FIM): 7 Problem Solving(FIM): 0 Memory(FIM): 0 Additional Short Term Goals: 1-Demonstrate ADL Tasks, 2-Verbalize Understanding , 3-ImproveStrength/Stevie 1=Demonstrate adherence to instructed precautions during ADL tasks. 2=Patient will verbalize/demonstrate understanding of assistive devices/ modifications for ADL. 3=Patient will improve strength/tolerance for activity to enable patient to perform ADL's. OT [facility] Goals [facility] Goals Time Frame: Jul 01, 2018 Eating (FIM): 7 Eating (QC): 6 Groomin Oral Hygiene (QC): 6 Bathing(FIM): 5 Shower/Bathe Self (QC): 5 Upper Body Dressing(FIM): 6 Upper Body Dressing (QC): 6 Lower Body Dressing(FIM): 6 Lower Body Dressing (QC): 6 On/Off Footwear (QC): 6 Toileting(FIM): 6 Toileting Hygiene (QC): 6 Transfers (B,C,W/C) (FIM): 6 Toilet/Commode Transfer(FIM): 6 Toilet/Commode Transfer (QC): 6 Shower Transfer(FIM): 5 Additional Goals: 1-Demonstrate ADL Tasks, 2-Verbalize Understanding, 3- ImproveStrength/Stevie 1=Demonstrate adherence to instructed precautions during ADL tasks. 2=Patient will verbalize/demonstrate understanding of assistive devices/ modifications for ADL. 3=Patient will improve strength/tolerance for activity to enable patient to perform ADL's. OT Education/Plan Problem List/Assessment Assessment: Decreased Activ Tolerance, Impaired I ADL's Discharge Recommendations Plan/Recommendations: Continue POC Therapy D/C Recommendations: Home w/ Family Support, Occupational Therapy Home Care Treatment Plan/Plan of Care Treatment,Training & Education: Yes Patient would benefit from OT for education, treatment and training to promote independence in ADL's, mobility, safety and/or upper extremity function for ADL' s. Plan of Care: ADL Retraining, Caregiver Training, Cognitive Retraining, Functional Mobility, Group Exercise/Act as Ind, UE Funct Exercise/Act, Visual/ Perceptual Retrain Treatment Duration: Jul 01, 2018 Frequency: At least 5 of 7 days/Wk (IRF) Estimated Hrs Per Day: 1.5 hours per day Agreement: Yes Rehab Potential: Good Time/GCodes Start Time: 11:00 Stop Time: 12:00 Total Time Billed (hr/min): 60 Billed Treatment Time 1, FA x 4 GEOFFREY LONG OT Jun 13, 2018 16:20
[2018-06-13 17:43] VITALS: BP 123/85
--- NOTE | 2018-06-13 20:49 | PM & R (SOAP) Progress Note ---
Subjective This was a face to face visit with the patient. Date Seen by Provider: Jun 13, 2018 Time Seen by Provider: 20:35 Subjective/Events-last exam Patient was seen in his room this evening Patient Independent for transfers Strength and endurance improving.Fever resolved Patient moved to Independent apartment Family in to visit. Objective Physician Exam Last Set of Vital Signs Vital Signs Date Time Temp Pulse Resp B/P (MAP) Pulse Ox O2 Delivery O2 Flow Rate FiO2 06/13/18 17:43 100.4 85 16 123/85 (98) 99 Room Air Capillary Refill : I&O Intake and Output 06/13/18 00:00 Intake Total 2180 ml Balance 2180 ml Intake Oral 2180 ml # Voids 7 # Bowel Movements 1 General: Alert, Oriented X3, Cooperative, No Acute Distress HEENT: PERRLA, Mucous Memb Moist/[place], Other (crani site healing well) Neck: Supple, No JVD Lungs: Clear to Auscultation Heart: Regular Rate Abdomen: Normal Bowel Sounds, Soft, No Tenderness Extremities: No Edema Skin: Other (incision healing well) Neuro: Other (Mild rt HP with decreased balance) Results Lab Data Laboratory Tests 06/12/18 04:54: Sodium Level 135, Potassium Level 3.6, Chloride Level 101, Carbon Dioxide Level 25, Anion Gap 9, Blood Urea Nitrogen 10, Creatinine 0.70, Estimat Glomerular Filtration Rate > 60, BUN/Creatinine Ratio 14, Glucose Level 105, Calcium Level 9.0 Assessment/Plan Assessment and Plan S/P left frontal crani for Benign tumor Postop hyponatremia improved Postop fever still spiking at night low grade discussed with RN Steroid leukocytosis improved Steroid taper Plan Continue PT/OT Team Conferenec 06-15-18 Discharge later this week most likely to home with family Co-Morbidities that are continuing to impact the rehab process: (include details ) JORDY QUINTANILLA MD Jun 13, 2018 20:49
[2018-06-14 05:46] VITALS: BP 123/86
[2018-06-14] MEDS: SENNA W/DOCUSATE (SENOKOT S) TABLET PO SCH ×2 (08:58→20:23)
[2018-06-14] MEDS: FLUDROCORTISONE 0.1 MG (FLORINEF) TAB PO SCH ×2 (08:58→20:23)
[2018-06-14] MEDS: SODIUM CHLORIDE 1 GM TAB (NON-FORMULARY) PO SCH ×3 (09:02→20:23)
--- NOTE | 2018-06-14 09:36 | PM & R (SOAP) Progress Note ---
Subjective This was a face to face visit with the patient. Date Seen by Provider: Jun 14, 2018 Time Seen by Provider: 07:45 Subjective/Events-last exam Patient was seen in his rroom this AM Patient Independent for transfers Progressing well Objective Physician Exam Last Set of Vital Signs Vital Signs Date Time Temp Pulse Resp B/P (MAP) Pulse Ox O2 Delivery O2 Flow Rate FiO2 06/14/18 08:00 Room Air 06/14/18 05:46 99.5 65 16 123/86 (98) 100 Capillary Refill : I&O Intake and Output 06/14/18 00:00 Intake Total 1950 ml Balance 1950 ml Intake Oral 1950 ml # Voids 8 General: Alert, Oriented X3, Cooperative, No Acute Distress HEENT: PERRLA, Mucous Memb Moist/[place], Other (crani site healing well) Neck: Supple, No JVD Lungs: Clear to Auscultation Heart: Regular Rate Abdomen: Normal Bowel Sounds, Soft, No Tenderness Extremities: No Edema Skin: Other (incision healing well) Neuro: Other (Mild rt HP with decreased balance) Results Lab Data Laboratory Tests 06/12/18 04:54: Sodium Level 135, Potassium Level 3.6, Chloride Level 101, Carbon Dioxide Level 25, Anion Gap 9, Blood Urea Nitrogen 10, Creatinine 0.70, Estimat Glomerular Filtration Rate > 60, BUN/Creatinine Ratio 14, Glucose Level 105, Calcium Level 9.0 Assessment/Plan Assessment and Plan s/p left frontal crani for benign tumor Postop hyponatremia improved continues on salt tablets Post op fever-resolved at this point-monitor Steroid leukocytosis improved Steroid taper Plan Continue PT/OT/ST Team Conference tomorrow Probable discharge by end of week Co-Morbidities that are continuing to impact the rehab process: (include details ) JORDY QUINTANILLA MD Jun 14, 2018 09:36
--- NOTE | 2018-06-14 09:39 | Progress Note-Hospitalist ---
Subjective HPI/CC On Admission Date Seen by Provider: Jun 14, 2018 Time Seen by Provider: 09:15 CC: Debility following brain surgery HPI: This is a 23-year-old male who presents to inpatient rehabilitation via [facility] after transferred from [facility] following brain surgery for a neurocytoma. Apparently he presented with recurrent headaches and worsening clinical status found to have brain mass and sent to higher level of care which resulted in successful and uncomplicated resection but now recovering from brain surgery with residual aphasia and right arm and leg weakness. Currently he is doing well mother has no concerns and she is at the bedside with her other 2 children. His bowels are moving and denies any pain. I reviewed all current medications from including Florinef, sodium tablets, and fluid restriction along with Decadron and all will be continued and labs will be monitored closely. Subjective/Events-last exam Patient doing very well Able to walk without assistance Discharge planning Fluid restriction was lifted so we'll check labs today Patient denies any pain and bowels are moving Review of Systems General: Fatigue Objective Exam Vital Signs Vital Signs Date Time Temp Pulse Resp B/P (MAP) Pulse Ox O2 Delivery O2 Flow Rate FiO2 06/14/18 08:00 Room Air 06/14/18 05:46 99.5 65 16 123/86 (98) 100 Capillary Refill : General Appearance: No Apparent Distress, WD/WN, Chronically ill Respiratory: Lungs Clear, Normal Breath Sounds Cardiovascular: Regular Rate, Rhythm, No Edema Neurologic/Psychiatric: Alert, Oriented x3, Normal Mood/Affect, Motor Weakness (right) Results/Procedures Lab Patient resulted labs reviewed. Assessment/Plan Assessment and Plan Assess & Plan/Chief Complaint Debility following brain surgery Continue fluid restriction DC so check labs Continue current meds Diagnosis/Problems Diagnosis/Problems (1) Right sided weakness Status: Acute (2) Neurocytoma Status: Acute (3) Hyponatremia Status: Acute (4) Brain edema Status: Acute Clinical Quality Measures DVT/VTE Risk/Contraindication: Risk Factor Score Per Nursin RFS Level Per Nursing on Admit: 3=High BELKYS LINDER DO Jun 14, 2018 09:39
--- NOTE | 2018-06-14 09:58 | Occupational Ther Daily Note ---
OT Current Status-Daily Note Subjective No pain reported. Appearance Pt. in bed. Agrees to work with OT. Mental Status/Objective Patient Orientation: Person Functional [place] Measure 0=Not Assessed/NA 4=Minimal Assistance 1=Total Assistance 5=Supervision or Setup 2=Maximal Assistance 6=Modified [place] 3=Moderate Assistance 7=Complete [place] ADL-Treatment Functional [place] Measure 0=Not Assessed/NA 4=Minimal Assistance 1=Total Assistance 5=Supervision or Setup 2=Maximal Assistance 6=Modified [place] 3=Moderate Assistance 7=Complete IndependenceIRFPAI Quality Coding Scale 6 Independent with activity with or without an assistive device 5 Patient requires set up or clean up by helper. Patient completes activity by themselves 4 Supervision or touching assist (CGA). [place] provide cues , steadying assist 3 The helper provides less than half the effort to complete the activity 2 The helper provides more than half the effort to complete the activity 1 Dependent. The helper does all the effort to complete an activity 7 Patient refused to complete or attempt activity 9 The patient did not perform the activity before the current illness or injury 88 Not attempted due to Medical conditions or safety concerns Grooming (FIM): 7 Oral Hygiene (QC): 6 Bathing (FIM): 6 Shower/Bathe Self (QC): 6 Upper Body (FIM): 7 Upper Body Dressing (QC): 6 Lower Body Dressing (FIM): 7 Lower Body Dressing (QC): 6 On/Off Footwear (QC): 6 Toileting (FIM): 7 Toileting Hygiene (QC): 6 Transfers (B, C, W/C) (FIM): 7 Toilet/Commode Transfer (FIM): 7 Toilet Transfer (QC): 6 Tub Transfer(FIM): 6 Other Treatment Pt. agreed to shower. Pt. able to shower and dress independently. After this, pt. ambulated to dining area. Pt. given a visual perceptual task with blocks. Pt. did well with this. Had no difficulty with duplicating structure as it was shown to him. Pt. was then given an organizational task, the same task he was given yesterday. Pt. was in noisy environment and instructed that if he had difficulty concentrating, to let this therapist know and we would go to his room. Pt. attempted this task for awhile, before stating that he would like to go to his room. In his room, pt. was able to concentrate better, but still had difficulty. Pt. used remainder of time to organize the tasks to be performed ( on paper), but did not get them all. Pt. does not articulate how or why it is difficult to understand the information. Unsure if this is visual, cognitive, or both. All needs met in room. Education OT Patient Education: Modified ADL techniques, Progress toward Goal/Update tx plan, Purpose of tx/functional activities, Reviewed precautions, Rehab process, Transfer techniques Teaching Recipient: Patient Teaching Methods: Demonstration, Discussion Response to Teaching: Verbalize Understanding, Return Demonstration OT Short Term Goals Short Term Goals Time Frame: Jun 17, 2018 Eating(FIM): 4 Grooming(FIM): 5 Bathing(FIM): 5 Upper Body Dressing(FIM): 5 Lower Body Dressing(FIM): 5 Toileting(FIM): 5 Transfers (B,C,W/C) (FIM): 5 Toilet/Commode Transfer(FIM): 5 Shower Transfer(FIM): 5 Comprehension(FIM): 5 Expression(FIM): 4 Social Interaction(FIM): 7 Problem Solving(FIM): 0 Memory(FIM): 0 Additional Short Term Goals: 1-Demonstrate ADL Tasks, 2-Verbalize Understanding , 3-ImproveStrength/Stevie 1=Demonstrate adherence to instructed precautions during ADL tasks. 2=Patient will verbalize/demonstrate understanding of assistive devices/ modifications for ADL. 3=Patient will improve strength/tolerance for activity to enable patient to perform ADL's. OT [employer] Goals Shelter Goals Time Frame: Jul 01, 2018 Eating (FIM): 7 Eating (QC): 6 Groomin Oral Hygiene (QC): 6 Bathing(FIM): 5 Shower/Bathe Self (QC): 5 Upper Body Dressing(FIM): 6 Upper Body Dressing (QC): 6 Lower Body Dressing(FIM): 6 Lower Body Dressing (QC): 6 On/Off Footwear (QC): 6 Toileting(FIM): 6 Toileting Hygiene (QC): 6 Transfers (B,C,W/C) (FIM): 6 Toilet/Commode Transfer(FIM): 6 Toilet/Commode Transfer (QC): 6 Shower Transfer(FIM): 5 Additional Goals: 1-Demonstrate ADL Tasks, 2-Verbalize Understanding, 3- ImproveStrength/Stevie 1=Demonstrate adherence to instructed precautions during ADL tasks. 2=Patient will verbalize/demonstrate understanding of assistive devices/ modifications for ADL. 3=Patient will improve strength/tolerance for activity to enable patient to perform ADL's. OT Education/Plan Problem List/Assessment Assessment: Impaired Cognition, Impaired I ADL's Discharge Recommendations Plan/Recommendations: Continue POC Therapy D/C Recommendations: Home w/ Family Support, Occupational Therapy Home Care Treatment Plan/Plan of Care Treatment,Training & Education: Yes Patient would benefit from OT for education, treatment and training to promote independence in ADL's, mobility, safety and/or upper extremity function for ADL' s. Plan of Care: ADL Retraining, Caregiver Training, Cognitive Retraining, Functional Mobility, Group Exercise/Act as Ind, UE Funct Exercise/Act, Visual/ Perceptual Retrain Treatment Duration: Jul 01, 2018 Frequency: At least 5 of 7 days/Wk (IRF) Estimated Hrs Per Day: 1.5 hours per day Agreement: Yes Rehab Potential: Good Time/GCodes Start Time: 08:30 Stop Time: 09:30 Total Time Billed (hr/min): 60 Billed Treatment Time 1, ADL x 30minutes, FA x 30minutes GEOFFREY LONG OT Jun 14, 2018 09:58
[2018-06-14 10:34] LABS: HEMOGLOBIN 13.3 G/DL (13.3-17.7); MEAN PLATELET VOLUME 8.1 FL (7.4-10.4); RED BLOOD COUNT 4.49 10^6/uL (4.35-5.85); RED CELL DISTRIBUTION WIDTH 14.7 % (10.0-14.5); WHITE BLOOD COUNT 7.6 10^3/uL (4.3-11.0)
[2018-06-14 10:52] LABS: ALANINE AMINOTRANSFERASE 30 U/L (0-55); ALKALINE PHOSPHATASE 48 U/L (40-136); BILIRUBIN,TOTAL 0.6 MG/DL (0.1-1.0); BUN/CREATININE RATIO 11; CALCIUM 9.5 MG/DL (8.5-10.1); CARBON DIOXIDE 27 MMOL/L (21-32); CHLORIDE 98 MMOL/L (98-107); CREATININE SERUM 0.75 MG/DL (0.60-1.30); GFR ESTIMATED > 60; GLUCOSE 94 MG/DL (70-105); POTASSIUM 3.3 MMOL/L (3.6-5.0); SODIUM 136 MMOL/L (135-145); TOTAL PROTEIN 6.7 GM/DL (6.4-8.2)
--- NOTE | 2018-06-14 11:46 | Physical Therapy Daily Note ---
PT Daily Note-Current Subjective Pt in restroom upon arrival. Pt agrees to PT. Pain Location: No Pain Reported Mental Status Patient Orientation: Person, Place, Situation Transfers Functional [place] Measure 0=Not Assessed/NA 4=Minimal Assistance 1=Total Assistance 5=Supervision or Setup 2=Maximal Assistance 6=Modified [place] 3=Moderate Assistance 7=Complete IndependenceIRFPAI Quality Coding Scale 6 Independent with activity with or without an assistive device 5 Patient requires set up or clean up by helper. Patient completes activity by themselves 4 Supervision or touching assist (CGA). [place] provide cues , steadying assist 3 The helper provides less than half the effort to complete the activity 2 The helper provides more than half the effort to complete the activity 1 Dependent. The helper does all the effort to complete an activity 7 Patient refused to complete or attempt activity 9 The patient did not perform the activity before the current illness or injury 88 Not attempted due to Medical conditions or safety concerns Transfers (B, C, W/C) (FIM): 7 Scootin Rollin Roll Left to Right (QC): 7 Supine to/from Sit: 7 Sit to/from Stand: 7 Sit to Lying (QC): 7 Sit to Stand (QC): 7 Chair/Ypj-qu-Tjwxy Xfer(QC): 7 Bed to/from Chair: 7 Car Transfer (QC): 7 Weight Bearing Right Lower Extremity: Right Full Weight Bearing Left Lower Extremity: Left Full Weight Bearing Gait Training Does the Patient Walk?: Yes Gait (FIM): 7 Distance (FIM): 3=150 ft Distance: 750+' Walk 10 feet (QC): 7 Walk 50 ft with 2 Turns(QC): 7 Walk 150 ft (QC): 7 Walking 10ft/uneven surface-QC: 7 Gait Level of Assist: 7 Gait Persons Needed: 1 Gait Assistive Device: None Wheelchair Training Does the Pt Use a Wheelchair?: No Stair Training Stair Training: Handrails/: 2 handrails Stairs (FIM): 7 #of Steps: 12 1 Step (curb) (QC): 7 4 Steps (QC): 7 12 Steps (QC): 7 Stairs: Pattern: Step to Level of Assist: 7 Balance Picking up an Object (QC): 6 Special Test Comments Pt has occasional dizziness when bending over but is able to self correct. Treatments Pt is performing tasks including car transfer, stairs bed mobility, ambulation & transfers at [facility]. Pt is challenged with cognitive or problem tasks during tx that would resemble everyday tasks pt would complete such as laying clothes out for next day, finding departments within the hospital to locate for services and figuring out change and money situations for payment. Pt returns to room to rest at end of tx. Pt has all needs met, including call light & phone. Assessment Current Status: Good Progress Pt has some deficits cognitively still and sometimes takes extended time to problem solve. Pt is able to complete the physical aspect of a task but not always the mental. PT Short Term Goals Short Term Goals Time Frame: Jun 10, 2018 Transfers (B,C,W/C) (FIM): 5 Gait (FIM): 5 Gait Distance Comment: 400' Gait Level of Assist: 5 Gait Assistive Device: None PT Assisted Goals Assisted Goals PT Assisted Goals Time Frame: Jun 24, 2018 Transfers (B,C,W/C) (FIM): 6 Sit to Lying (QC): 6 Lying-Sitting on Side/Bed(QC): 6 Sit to Stand (QC): 6 Rollin Roll Left to Right (QC): 6 Chair/Aei-is-Lqjwq Xfer(QC): 6 Car Transfer (QC): 6 Gait (FIM): 7 Distance: 500' Walk 10 feet (QC): 6 Walk 10ft-Uneven Surface(QC): 6 Walk 50ft with 2 Turns (QC): 6 Walk 150 ft (QC): 6 Gait Assistive Device: None Stairs (FIM): 5 # of Steps: 12 1 Step (curb) (QC): 4 4 Steps (QC): 4 12 Steps (QC): 4 Stairs Level Of Assist: 5 PT Plan Problem List Problem List: Activity Tolerance, Safety Treatment/Plan Treatment Plan: Continue Plan of Care Treatment Plan: Bed Mobility, Education, Functional Activity Stevie, Functional Strength, Group Therapy, Gait, Safety, Therapeutic Exercise, Transfers Treatment Duration: Jun 24, 2018 Frequency: At least 5 of 7 days/Wk (IRF) Estimated Hrs Per Day: 1.5 hours per day Patient and/or Family Agrees t: Yes Safety Risks/Education Patient Education: Gait Training, Transfer Techniques, Correct Positioning, Safety Issues Teaching Recipient: Patient Teaching Methods: Discussion Response to Teaching: Verbalize Understanding Time/GCodes Time In: 1030 Time Out: 1130 Total Billed Treatment Time: 60 Total Billed Treatment 1, FA x2 (30m) & GT x2 (30m) G Codes Necessary: HETAL Rosales CLINICAL ABSTRACTOR Jun 14, 2018 11:46
--- NOTE | 2018-06-14 14:46 | Therapy Group Daily Note ---
Therapy Daily Group Note Patient Education Topic Other List Below Exercises LE Seated Exercise, UE Exercise Other/Notes Pt ambulated to OT/PT group at [facility]. Group consisted of introductions (name, place living, life changing event), socialization, [facility] expectations/description, seated UE/LE exercises and what inspires pt's to work with therapy. Pt introduced self appropriately and actively listened to peers. Pt participated in group discussions. Pt verbalized understanding of educational topic. Pt was able to complete UE/LE seated exercises without difficulty. Pt was able to describe what inspires hard work. After group, pt lying in bed with call light/phone in reach. All needs met in room. Start Time: 13:00 Stop Time: 14:00 Total Billed Treatment Time: 60 Total Billed Treatment 1-GRP ROGELIO DOLL Jun 14, 2018 14:46
--- NOTE | 2018-06-14 16:32 | Speech Therapy Daily Note ---
Speech Daily Progress Note Subjective Date Seen by Provider: Jun 14, 2018 Time Seen by Provider: 09:30 1000 Pain Numeric Pain Scale: 0-No Pain Objective Pt had to name 2 category members based on different categories. Pt required min assist. Sentence completion having to use more than one word responses. Min assist. Assessment Assessment Current Status: Good Progress Treatment Plan Continue Plan of Care Communication Comprehension: 4 Expression: 3 Social Cognition Social Interaction: 7 Problem Solvin (unable to assess due to expressive aphasia.) Memory: 0 (unable to assess due to expresive aphasia) Speech Short Term Goals Short Term Goals Short Term Goals Pt will complete various verbal expressive tasks (naming, sentence completion, sentence formulation with at least 80% accuracy and min assist. Complete cognitive assessment as pt's verbal skills improve. Time Frame-ST week Comprehension: 5 Expression: 4 Social Interaction: 7 Problem Solvin Memory: 0 Speech Snf Goals Clinical Application Consultant Goals Pt will have functional verbal skills for expressing needs, wants, desires independently. Time Frame: 3 weeks Speech-Plan Patient/Family Goals Patient/Family Goals: to return home Treatment Plan Speech Therapy Treatment Plan: Continue Plan of Care pt making good progress Treatment Duration: Jun 06, 2018 Frequency: 5 times per week Estimated Hrs Per Day: .5 hour per day Rehab Potential: Good Pt/Family Agrees to Plan: Yes Safety Risks/Education Teaching Recipient: Patient Teaching Methods: Discussion Response to Teaching: Verbalize Understanding Time Speech Therapy Time In: 09:30 Speech Therapy Time Out: 10:00 Total Billed Time: 30 Billed Treatment Time 1, MARLA Uriarte Jun 14, 2018 16:32
[2018-06-14 18:00] VITALS: BP 127/82
[2018-06-15] MEDS: ACETAMINOPHEN 325 MG TABLET PO PRN (02:03)
[2018-06-15 05:09] VITALS: BP 130/75
[2018-06-15] MEDS: SODIUM CHLORIDE 1 GM TAB (NON-FORMULARY) PO SCH ×3 (07:56→22:16)
[2018-06-15] MEDS: SENNA W/DOCUSATE (SENOKOT S) TABLET PO SCH ×2 (07:56→22:16)
[2018-06-15] MEDS: FLUDROCORTISONE 0.1 MG (FLORINEF) TAB PO SCH ×2 (07:56→22:19)
--- NOTE | 2018-06-15 08:39 | PM & R (SOAP) Progress Note ---
Subjective This was a face to face visit with the patient. Date Seen by Provider: Jun 15, 2018 Time Seen by Provider: 07:50 Subjective/Events-last exam Patient was seen in his room this AM Patient Independent in apartment and seen in common area walking without difficulty without gait aide or LOB. Patient still spiking [place] grade fever at night but WBC count down K low -replace Objective Physician Exam Last Set of Vital Signs Vital Signs Date Time Temp Pulse Resp B/P (MAP) Pulse Ox O2 Delivery O2 Flow Rate FiO2 06/15/18 05:09 100.2 79 20 130/75 (93) 98 Room Air Capillary Refill : I&O Intake and Output 06/15/18 00:00 Intake Total 720 ml Balance 720 ml Intake Oral 720 ml # Voids 5 # Bowel Movements 1 General: Alert, Oriented X3, Cooperative, No Acute Distress HEENT: PERRLA, Mucous Memb Moist/[place], Other (crani site healing well) Neck: Supple, No JVD Lungs: Clear to Auscultation Heart: Regular Rate Abdomen: Normal Bowel Sounds, Soft, No Tenderness Extremities: No Edema Skin: Other (incision healing well) Neuro: Other (Mild rt HP with decreased balance) Results Lab Data Laboratory Tests 06/14/18 10:11: White Blood Count 7.6, Red Blood Count 4.49, Hemoglobin 13.3, Hematocrit 41, Mean Corpuscular Volume 91, Mean Corpuscular Hemoglobin 30, Mean Corpuscular Hemoglobin Concent 33, Red Cell Distribution Width 14.7H, Platelet Count 294, Mean Platelet Volume 8.1, Sodium Level 136, Potassium Level 3.3L, Chloride Level 98, Carbon Dioxide Level 27, Anion Gap 11, Blood Urea Nitrogen 8, Creatinine 0.75, Estimat Glomerular Filtration Rate > 60, BUN/Creatinine Ratio 11, Glucose Level 94, Calcium Level 9.5, Corrected Calcium 9.5, Total Bilirubin 0.6, Aspartate Amino Transf (AST/SGOT) 14, Alanine Aminotransferase (ALT/SGPT) 30, Alkaline Phosphatase 48, Total Protein 6.7, Albumin 4.0 Assessment/Plan Assessment and Plan 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
--- NOTE | 2018-06-15 09:10 | Physical Therapy Daily Note ---
PT Daily Note-Current Subjective Pt standing in room by bed upon arrival. Pt agrees to PT. Pt reports being ready to discharge home. Pain Location: No Pain Reported Mental Status Patient Orientation: Person, Place, Situation Transfers Functional [place] Measure 0=Not Assessed/NA 4=Minimal Assistance 1=Total Assistance 5=Supervision or Setup 2=Maximal Assistance 6=Modified [place] 3=Moderate Assistance 7=Complete IndependenceIRFPAI Quality Coding Scale 6 Independent with activity with or without an assistive device 5 Patient requires set up or clean up by helper. Patient completes activity by themselves 4 Supervision or touching assist (CGA). [place] provide cues , steadying assist 3 The helper provides less than half the effort to complete the activity 2 The helper provides more than half the effort to complete the activity 1 Dependent. The helper does all the effort to complete an activity 7 Patient refused to complete or attempt activity 9 The patient did not perform the activity before the current illness or injury 88 Not attempted due to Medical conditions or safety concerns Scootin Sit to/from Stand: 7 Sit to Stand (QC): 7 Weight Bearing Right Lower Extremity: Right Full Weight Bearing Left Lower Extremity: Left Full Weight Bearing Gait Training Does the Patient Walk?: Yes Distance (FIM): 3=150 ft Distance: 750+' Walk 10 feet (QC): 7 Walk 50 ft with 2 Turns(QC): 7 Walk 150 ft (QC): 7 Gait Level of Assist: 7 Gait Persons Needed: 1 Gait Assistive Device: None Pt is walking extended distances to work on activity tolerance/endurance. Pt has tolerated well. Pt also completes balance exercise by ambulating between single step and balance foam to fruit picker/set down small cones. Stair Training Stair Training: Handrails/: 2 handrails #of Steps: 15 1 Step (curb) (QC): 7 4 Steps (QC): 7 12 Steps (QC): 7 Stairs: Pattern: Step to Level of Assist: 7 Balance Picking up an Object (QC): 6 Special Test Comments Pt was challenged with balance foam & single step. This increased difficulty of picking up object/cone from floor. Exercises NuStep Minutes: 15 NuStep Workload: 7 Treatments Pt ambulates in hallway to Therapy Gym. Pt uses NuStep for 15m at [facility] 7. Pt then takes short rest then completes balance activity on single step & balance foam. Pt ambulates in hallway then on to extended distances on main floor of hospital. Pt walks indoor ramp and 1 flight of stairs then returns to room to rest at end of tx. Pt has all needs met, including call light & phone. Assessment Pt has occasional moments of confusion but is able to complete physical task given. Pt still has difficulty coming up with answers to open ended questions. PT Short Term Goals Short Term Goals Time Frame: Jun 10, 2018 Transfers (B,C,W/C) (FIM): 5 Gait (FIM): 5 Gait Distance Comment: 400' Gait Level of Assist: 5 Gait Assistive Device: None PT Set Builder Goals Set Builder Goals PT Set Builder Goals Time Frame: Jun 24, 2018 Transfers (B,C,W/C) (FIM): 6 Sit to Lying (QC): 6 Lying-Sitting on Side/Bed(QC): 6 Sit to Stand (QC): 6 Rollin Roll Left to Right (QC): 6 Chair/Tlv-un-Fqzsk Xfer(QC): 6 Car Transfer (QC): 6 Gait (FIM): 7 Distance: 500' Walk 10 feet (QC): 6 Walk 10ft-Uneven Surface(QC): 6 Walk 50ft with 2 Turns (QC): 6 Walk 150 ft (QC): 6 Gait Assistive Device: None Stairs (FIM): 5 # of Steps: 12 1 Step (curb) (QC): 4 4 Steps (QC): 4 12 Steps (QC): 4 Stairs Level Of Assist: 5 PT Plan Problem List Problem List: Activity Tolerance, Safety, Balance Treatment/Plan Treatment Plan: Continue Plan of Care Treatment Plan: Bed Mobility, Education, Functional Activity Stevie, Functional Strength, Group Therapy, Gait, Safety, Therapeutic Exercise, Transfers Treatment Duration: Jun 24, 2018 Frequency: At least 5 of 7 days/Wk (IRF) Estimated Hrs Per Day: 1.5 hours per day Patient and/or Family Agrees t: Yes Safety Risks/Education Patient Education: Gait Training, Transfer Techniques, Correct Positioning, Safety Issues Teaching Recipient: Patient Teaching Methods: Discussion Response to Teaching: Verbalize Understanding Time/GCodes Time In: 815 Time Out: 915 Total Billed Treatment Time: 60 Total Billed Treatment 1, GT x2 (30m) & FA x2 (30m) G Codes Necessary: HETAL Rosales CHIEF BUSINESS OFFICER Jun 15, 2018 09:10
--- NOTE | 2018-06-15 11:30 | Occupational Ther Daily Note ---
OT Current Status-Daily Note Subjective No pain reported. Appearance Pt. is already dressed for day. Agrees to work with OT. Mental Status/Objective Patient Orientation: Person, Place Functional [place] Measure 0=Not Assessed/NA 4=Minimal Assistance 1=Total Assistance 5=Supervision or Setup 2=Maximal Assistance 6=Modified [place] 3=Moderate Assistance 7=Complete [place] ADL-Treatment Functional [place] Measure 0=Not Assessed/NA 4=Minimal Assistance 1=Total Assistance 5=Supervision or Setup 2=Maximal Assistance 6=Modified [place] 3=Moderate Assistance 7=Complete IndependenceIRFPAI Quality Coding Scale 6 Independent with activity with or without an assistive device 5 Patient requires set up or clean up by helper. Patient completes activity by themselves 4 Supervision or touching assist (CGA). [place] provide cues , steadying assist 3 The helper provides less than half the effort to complete the activity 2 The helper provides more than half the effort to complete the activity 1 Dependent. The helper does all the effort to complete an activity 7 Patient refused to complete or attempt activity 9 The patient did not perform the activity before the current illness or injury 88 Not attempted due to Medical conditions or safety concerns Transfers (B, C, W/C) (FIM): 7 Other Treatment Pt. is up ad miguel a in room and is able to ambulate independently. Pt. agrees to work with OT. Does demonstrate weakness in right hand but reports that this is better. Pt. ambulated to therapy gym and completed armbike x 15minutes at mod resistance for overall UE strength. Pt. participated in series of fine motor strength and coordination tasks, as well as cognitive tasks for problem solving , naming, and categorization. Pt. completed coloring task with crayons on coloring sheet. Given instruction to stay within the lines, and to use multiple colors when appropriate. Pt. is able to do this, but is not able to color all parts, as he leaves some out and is not fluid with strokes. Pt. then is instructed to cut out this picture. Pt. has great difficulty manipulating scissors. Is unable to fully turn page and seems to struggle with this. When pt. is asked if he needs help, he states, "no, I have it." Pt. then participated in problem solving task in which he was asked to look at picture cards, and name what was danger or a safety issue in each picture. Pt. was able to do this with no difficulty. Pt. then participated in fine motor/visual perceptual task. Pt. was asked to put small shaped pieces in corresponding holes. Pt. able to do this, but has difficulty with it. Requires increased time and looks multiple times at shapes before selecting the correct one. Pt. then participated in naming/categorization. Pt. had difficulty with abstract thought. When given a description and asked what was being described, pt. had difficulty. Pt. is able to complete ADLs with independence, but there is concern regarding ability to complete higher level tasks. Will speak to social science analyst about this so that family can be educated about concerns. Education OT Patient Education: Progress toward Goal/Update tx plan, Purpose of tx/ functional activities, Reviewed precautions, Rehab process Teaching Recipient: Patient Teaching Methods: Demonstration, Discussion Response to Teaching: Verbalize Understanding, Return Demonstration OT Short Term Goals Short Term Goals Time Frame: Jun 17, 2018 Eating(FIM): 4 Grooming(FIM): 5 Bathing(FIM): 5 Upper Body Dressing(FIM): 5 Lower Body Dressing(FIM): 5 Toileting(FIM): 5 Transfers (B,C,W/C) (FIM): 5 Toilet/Commode Transfer(FIM): 5 Shower Transfer(FIM): 5 Comprehension(FIM): 5 Expression(FIM): 4 Social Interaction(FIM): 7 Problem Solving(FIM): 0 Memory(FIM): 0 Additional Short Term Goals: 1-Demonstrate ADL Tasks, 2-Verbalize Understanding , 3-ImproveStrength/Stevie 1=Demonstrate adherence to instructed precautions during ADL tasks. 2=Patient will verbalize/demonstrate understanding of assistive devices/ modifications for ADL. 3=Patient will improve strength/tolerance for activity to enable patient to perform ADL's. OT Jewish Thought Professor Goals Group Home Goals Time Frame: Jul 01, 2018 Eating (FIM): 7 Eating (QC): 6 Groomin Oral Hygiene (QC): 6 Bathing(FIM): 5 Shower/Bathe Self (QC): 5 Upper Body Dressing(FIM): 6 Upper Body Dressing (QC): 6 Lower Body Dressing(FIM): 6 Lower Body Dressing (QC): 6 On/Off Footwear (QC): 6 Toileting(FIM): 6 Toileting Hygiene (QC): 6 Transfers (B,C,W/C) (FIM): 6 Toilet/Commode Transfer(FIM): 6 Toilet/Commode Transfer (QC): 6 Shower Transfer(FIM): 5 Additional Goals: 1-Demonstrate ADL Tasks, 2-Verbalize Understanding, 3- ImproveStrength/Stevie 1=Demonstrate adherence to instructed precautions during ADL tasks. 2=Patient will verbalize/demonstrate understanding of assistive devices/ modifications for ADL. 3=Patient will improve strength/tolerance for activity to enable patient to perform ADL's. OT Education/Plan Problem List/Assessment Assessment: Impaired Cognition, Impaired I ADL's Discharge Recommendations Plan/Recommendations: Continue POC Therapy D/C Recommendations: Home w/ Family Support, Occupational Therapy Outpatient Treatment Plan/Plan of Care Treatment,Training & Education: Yes Patient would benefit from OT for education, treatment and training to promote independence in ADL's, mobility, safety and/or upper extremity function for ADL' s. Plan of Care: ADL Retraining, Caregiver Training, Cognitive Retraining, Functional Mobility, Group Exercise/Act as Ind, UE Funct Exercise/Act, Visual/ Perceptual Retrain Treatment Duration: Jul 01, 2018 Frequency: At least 5 of 7 days/Wk (IRF) Estimated Hrs Per Day: 1.5 hours per day Agreement: Yes Rehab Potential: Good Time/GCodes Start Time: 10:00 Stop Time: 11:15 Total Time Billed (hr/min): 75 Billed Treatment Time 1, Ex x 15minutes, FA x 60minutes GEOFFREY LONG OT Jun 15, 2018 11:30
--- NOTE | 2018-06-15 15:11 | Physical Therapy Daily Note ---
PT Daily Note-Current Subjective Pt laying on bed in room upon arrival. Pt agrees to PT. Pain Location: No Pain Reported Mental Status Patient Orientation: Person, Place, Situation Transfers Functional [place] Measure 0=Not Assessed/NA 4=Minimal Assistance 1=Total Assistance 5=Supervision or Setup 2=Maximal Assistance 6=Modified [place] 3=Moderate Assistance 7=Complete IndependenceIRFPAI Quality Coding Scale 6 Independent with activity with or without an assistive device 5 Patient requires set up or clean up by helper. Patient completes activity by themselves 4 Supervision or touching assist (CGA). [place] provide cues , steadying assist 3 The helper provides less than half the effort to complete the activity 2 The helper provides more than half the effort to complete the activity 1 Dependent. The helper does all the effort to complete an activity 7 Patient refused to complete or attempt activity 9 The patient did not perform the activity before the current illness or injury 88 Not attempted due to Medical conditions or safety concerns Scootin Rollin Roll Left to Right (QC): 7 Supine to/from Sit: 7 Sit to/from Stand: 7 Sit to Lying (QC): 7 Sit to Stand (QC): 7 Weight Bearing Right Lower Extremity: Right Full Weight Bearing Left Lower Extremity: Left Full Weight Bearing Gait Training Does the Patient Walk?: Yes Distance (FIM): 3=150 ft Distance: 500+' Walk 10 feet (QC): 7 Walk 50 ft with 2 Turns(QC): 7 Walk 150 ft (QC): 7 Walking 10ft/uneven surface-QC: 6 Gait Level of Assist: 7 Gait Persons Needed: 1 Gait Assistive Device: None Pt again practices ambulating between single step and balance foam for balance practice in picking up cones from ground. Wheelchair Training Does the Pt Use a Wheelchair?: No Stair Training Stair Training: Handrails/: 2 handrails #of Steps: 20 1 Step (curb) (QC): 7 4 Steps (QC): 7 12 Steps (QC): 7 Stairs: Pattern: Step to Level of Assist: 7 Balance Picking up an Object (QC): 6 Treatments Pt transfers from bed to standing at [facility]. Pt ambulated through ARU at [facility]. Pt ambulates 1 flight of stairs to Main Floor of hospital then out to garden to walk on varying surfaces including ramp & stairs. Pt returns to ARU and practices balance picking up cones between balance foam & single step. Pt returns to room to rest at end of tx. Pt has all needs met, including call light. Assessment Current Status: Good Progress MOISTURE TESTER still observes cognitive deficits but is able to complete physical tasks. PT Short Term Goals Short Term Goals Time Frame: Jun 10, 2018 Transfers (B,C,W/C) (FIM): 5 Gait (FIM): 5 Gait Distance Comment: 400' Gait Level of Assist: 5 Gait Assistive Device: None PT Jet Dyeing Machine Tender Goals Group Home Goals PT Group Home Goals Time Frame: Jun 24, 2018 Transfers (B,C,W/C) (FIM): 6 Sit to Lying (QC): 6 Lying-Sitting on Side/Bed(QC): 6 Sit to Stand (QC): 6 Rollin Roll Left to Right (QC): 6 Chair/Ojo-xe-Bpfgo Xfer(QC): 6 Car Transfer (QC): 6 Gait (FIM): 7 Distance: 500' Walk 10 feet (QC): 6 Walk 10ft-Uneven Surface(QC): 6 Walk 50ft with 2 Turns (QC): 6 Walk 150 ft (QC): 6 Gait Assistive Device: None Stairs (FIM): 5 # of Steps: 12 1 Step (curb) (QC): 4 4 Steps (QC): 4 12 Steps (QC): 4 Stairs Level Of Assist: 5 PT Plan Problem List Problem List: Activity Tolerance, Safety Treatment/Plan Treatment Plan: Continue Plan of Care Treatment Plan: Bed Mobility, Education, Functional Activity Stevie, Functional Strength, Group Therapy, Gait, Safety, Therapeutic Exercise, Transfers Treatment Duration: Jun 24, 2018 Frequency: At least 5 of 7 days/Wk (IRF) Estimated Hrs Per Day: 1.5 hours per day Patient and/or Family Agrees t: Yes Safety Risks/Education Patient Education: Gait Training, Transfer Techniques, Correct Positioning, Safety Issues Teaching Recipient: Patient Teaching Methods: Discussion Response to Teaching: Verbalize Understanding Time/GCodes Time In: 1330 Time Out: 1400 Total Billed Treatment Time: 30 Total Billed Treatment 1, GT (20m) & FA (10m) G Codes Necessary: HETAL Rosales MOISTURE TESTER Jun 15, 2018 15:11
--- NOTE | 2018-06-15 15:44 | Speech Therapy Daily Note ---
Speech Daily Progress Note Subjective Date Seen by Provider: Jun 15, 2018 Time Seen by Provider: 15:10 Pt pleasant. Pain Numeric Pain Scale: 0-No Pain Objective Sentence Completion activity (Personal opinion) completed with 90% accuracy with min assist. Word deduction - pt was 90% accuracy with min assist. Assessment Assessment Current Status: Good Progress Treatment Plan Discontinue ST, Goals Met Communication Comprehension: 6 Expression: 6 Social Cognition Social Interaction: 7 Problem Solvin (unable to assess due to expressive aphasia.) Memory: 5 (unable to assess due to expresive aphasia) Speech Short Term Goals Short Term Goals Short Term Goals Pt will complete various verbal expressive tasks (naming, sentence completion, sentence formulation with at least 80% accuracy and min assist. Complete cognitive assessment as pt's verbal skills improve. Time Frame-ST week Comprehension: 6 Expression: 5 Social Interaction: 7 Problem Solvin Memory: 4 Speech Fci Goals Viscosity Tester Goals Pt will have functional verbal skills for expressing needs, wants, desires independently. Time Frame: 3 weeks Comprehension: 6 Expression: 6 Social Interaction: 7 Problem Solvin Memory: 5 Speech-Plan Patient/Family Goals [facility] Speech Therapy Treatment Plan: Discontinue ST, Goals Met pt met STGs and LTGS. Treatment Duration: Jun 06, 2018 Frequency: Modified Program (IRF) (pt being dc'd 06/16/2018) Estimated Hrs Per Day: Other (pt being dc'd) Rehab Potential: Good Pt/Family Agrees to Plan: Yes Safety Risks/Education Teaching Recipient: Patient Teaching Methods: Discussion Response to Teaching: Verbalize Understanding Discharge Recommendations Speech Therapy Outpatient Time Speech Therapy Time In: 15:10 Speech Therapy Time Out: 15:40 Total Billed Time: 30 Billed Treatment Time 1, SLMARLA Kulkarni Jun 15, 2018 15:44
[2018-06-15 17:15] VITALS: BP 122/76
[2018-06-15] MEDS ORDERED: SENN-20 PO (17:46)
[2018-06-15] MEDS ORDERED: NF-NACL1GT PO (17:46)
[2018-06-15] MEDS ORDERED: FLDR.1T PO (17:46)
[2018-06-16 06:41] VITALS: BP 111/67
--- NOTE | 2018-06-16 07:57 | PM & R (SOAP) Progress Note ---
Subjective This was a face to face visit with the patient. Date Seen by Provider: Jun 16, 2018 Time Seen by Provider: 07:20 Subjective/Events-last exam Patient was seen in his room this AM patient Independent for mobility Afebrile with low grade fever trending down. Objective Physician Exam Last Set of Vital Signs Vital Signs Date Time Temp Pulse Resp B/P (MAP) Pulse Ox O2 Delivery O2 Flow Rate FiO2 06/16/18 06:41 99.0 72 17 111/67 (82) 100 Room Air Capillary Refill : I&O Intake and Output 06/16/18 00:00 Intake Total 950 ml Balance 950 ml Intake Oral 950 ml # Voids 4 General: Alert, Oriented X3, Cooperative, No Acute Distress HEENT: PERRLA, Mucous Memb Moist/[place], Other (crani site healing well) Neck: Supple, No JVD Lungs: Clear to Auscultation Heart: Regular Rate Abdomen: Normal Bowel Sounds, Soft, No Tenderness Extremities: No Edema Skin: Other (incision healing well) Neuro: Other (Mild rt HP with decreased balance) Results Lab Data Laboratory Tests 06/14/18 10:11: White Blood Count 7.6, Red Blood Count 4.49, Hemoglobin 13.3, Hematocrit 41, Mean Corpuscular Volume 91, Mean Corpuscular Hemoglobin 30, Mean Corpuscular Hemoglobin Concent 33, Red Cell Distribution Width 14.7H, Platelet Count 294, Mean Platelet Volume 8.1, Sodium Level 136, Potassium Level 3.3L, Chloride Level 98, Carbon Dioxide Level 27, Anion Gap 11, Blood Urea Nitrogen 8, Creatinine 0.75, Estimat Glomerular Filtration Rate > 60, BUN/Creatinine Ratio 11, Glucose Level 94, Calcium Level 9.5, Corrected Calcium 9.5, Total Bilirubin 0.6, Aspartate Amino Transf (AST/SGOT) 14, Alanine Aminotransferase (ALT/SGPT) 30, Alkaline Phosphatase 48, Total Protein 6.7, Albumin 4.0 Assessment/Plan Assessment and Plan Home today with Family F/U with his neurosurgeon at [facility] Current meds reviewed see orders Co-Morbidities that are continuing to impact the rehab process: (include details ) JORDY QUINTANILLA MD Jun 16, 2018 07:57
[2018-06-16] MEDS: SENNA W/DOCUSATE (SENOKOT S) TABLET PO SCH (08:47)
[2018-06-16] MEDS: SODIUM CHLORIDE 1 GM TAB (NON-FORMULARY) PO SCH (08:48)
--- NOTE | 2018-06-16 09:02 | Therapy Team Discharge Summary ---
Therapy Discharge Summary Discharge Recommendations Date of Discharge Therapy D/C Recommendations: Speech Therapy Outpatient Physical Therapy Patient came to rehab following brain tumor surgery. Upon evaluation patient performed bed mobility with SBA, supine to sit with min assist, sit to supine with SBA, transfers with CGA, car transfer CGA, ambulated 300' without an assistive device with CGA (including 50' with at least 2 turns of 90 degrees and 10' over an uneven surface), and went up and down 4 steps using 2 handrails with CGA. Patient has been performing bed mobility and transfer training, balance and endurance training, functional strengthening, stair training, and gait training. 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 Now, patient performs bed mobility and transfers with independence, ambulates over 750' without an assistive device with independence, and can go up and down 12 steps with independence. Patient is being discharged from this facility today and will be discharged from PT at this time. Occupational Therapy Impaired Cognition, Impaired I ADL's PT Banking Teacher Goals Fpc Goals PT Fpc Goals Time Frame: Jun 24, 2018 Transfers (B,C,W/C) (FIM): 6 Roll Left to Right (QC): 6 Sit to Lying (QC): 6 Lying-Sitting on Side/Bed(QC): 6 Sit to Stand (QC): 6 Chair/Hwf-zw-Xnoka Xfer(QC): 6 Car Transfer (QC): 6 Gait (FIM): 7 Distance: 500' Walk 10 feet (QC): 6 Walk 10ft-Uneven Surface(QC): 6 Walk 50ft with 2 Turns (QC): 6 Walk 150 ft (QC): 6 Gait Assistive Device: None Stairs (FIM): 5 # of Steps: 12 1 Step (curb) (QC): 4 4 Steps (QC): 4 12 Steps (QC): 4 Stairs Level Of Assist: 5 OT Banking Teacher Goals Fpc Goals Time Frame: Jul 01, 2018 Eating (FIM): 7 Eating (QC): 6 Oral Hygiene (QC): 6 Grooming(FIM): 6 Bathing(FIM): 5 Shower/Bathe Self (QC): 5 Upper Body Dressing(FIM): 6 Upper Body Dressing (QC): 6 Lower Body Dressing(FIM): 6 Lower Body Dressing (QC): 6 On/Off Footwear (QC): 6 Toileting(FIM): 6 Toileting Hygiene (QC): 6 Transfers (B,C,W/C) (FIM): 6 Toilet/Commode Transfer(FIM): 6 Toilet/Commode Transfer (QC): 6 Shower Transfer(FIM): 5 Comprehension(FIM): 6 Expression (FIM): 6 Social Interaction(FIM): 7 Problem Solving(FIM): 5 Memory(FIM): 5 Additional Goals: 1-Demonstrate ADL Tasks, 2-Verbalize Understanding, 3- ImproveStrength/Stevie 1=Demonstrate adherence to instructed precautions during ADL tasks. 2=Patient will verbalize/demonstrate understanding of assistive devices/ modifications for ADL. 3=Patient will improve strength/tolerance for activity to enable patient to perform ADL's. Speech Banking Teacher Goals Fpc Goals Pt will have functional verbal skills for expressing needs, wants, desires independently. Time Frame: 3 weeks Comprehension: 6 Expression: 6 Social Interaction: 7 Problem Solvin Memory: 5 IRMA DEAN PT Jun 16, 2018 09:02
[2018-06-16] MEDS: FLUDROCORTISONE 0.1 MG (FLORINEF) TAB PO SCH (09:13)
[2018-06-16 11:27] VITALS: BP 110/68
--- NOTE | 2018-06-16 12:03 | Occ Therapy Progress Note ---
Therapy Progress Note Spoke with mother and pt. today regarding pt's progress and limitations. Educated mother on the nature of pt's cognitive status. Informed her of pt's inability to concentrate with stimulation in environment, as well as difficulty sequencing and verbalizing information. Let pt. and mother know that he should not drive until he has been cleared by his neurologist. Mother and pt. verbalized understanding, and had no questions or concerns for this therapist. 1, visit [id number] GEOFFREY LONG OT Jun 16, 2018 12:03
--- NOTE | 2018-06-16 12:07 | Therapy Team Discharge Summary ---
Therapy Discharge Summary Discharge Recommendations Date of Discharge Jun 16, 2018 at 10:30 Therapy D/C Recommendations: Home w/ Family Support, Occupational Therapy Outpatient, Speech Therapy Outpatient Occupational Therapy Pt. has been seen by occupational therapy to work on functional tasks such as bathing/dressing, but also to address higher level tasks and processes, such as problem solving, sequencing, and cognition. Pt. has demonstrated independence with ADLs such as bathing/dressing/grooming/toileting. However, demonstrates difficulty following 2-3 step commands. Pt. also demonstrates visual field cut on right side, and difficulty with language. Pt. has made great strides in this regard, but would benefit from continued occupational therapy to increase overall cognitive abilities, so that pt. can go to college and perform a job, as well as drive. Pt. and family have been educated on pt's abilities. Mother verbalizes understanding of pt's limitations. Impaired Cognition, Impaired I ADL's PT Fci Goals Fci Goals PT Fci Goals Time Frame: Jun 24, 2018 Transfers (B,C,W/C) (FIM): 6 Roll Left to Right (QC): 6 Sit to Lying (QC): 6 Lying-Sitting on Side/Bed(QC): 6 Sit to Stand (QC): 6 Chair/Gmg-sw-Wdvgy Xfer(QC): 6 Car Transfer (QC): 6 Gait (FIM): 7 Distance: 500' Walk 10 feet (QC): 6 Walk 10ft-Uneven Surface(QC): 6 Walk 50ft with 2 Turns (QC): 6 Walk 150 ft (QC): 6 Gait Assistive Device: None Stairs (FIM): 5 # of Steps: 12 1 Step (curb) (QC): 4 4 Steps (QC): 4 12 Steps (QC): 4 Stairs Level Of Assist: 5 OT Mooner Goals Mooner Goals Time Frame: Jul 01, 2018 Eating (FIM): 7 (met) Eating (QC): 6 (met) Oral Hygiene (QC): 6 (met) Grooming(FIM): 6 (met) Bathing(FIM): 5 (met) Shower/Bathe Self (QC): 5 (met) Upper Body Dressing(FIM): 6 (met) Upper Body Dressing (QC): 6 (met) Lower Body Dressing(FIM): 6 (met) Lower Body Dressing (QC): 6 (met) On/Off Footwear (QC): 6 (met) Toileting(FIM): 6 (met) Toileting Hygiene (QC): 6 (met) Transfers (B,C,W/C) (FIM): 6 (met) Toilet/Commode Transfer(FIM): 6 (met) Toilet/Commode Transfer (QC): 6 (met) Shower Transfer(FIM): 5 (met) Comprehension(FIM): 6 Expression (FIM): 6 Social Interaction(FIM): 7 Problem Solving(FIM): 5 Memory(FIM): 5 Additional Goals: 1-Demonstrate ADL Tasks, 2-Verbalize Understanding, 3- ImproveStrength/Stevie 1=Demonstrate adherence to instructed precautions during ADL tasks. 2=Patient will verbalize/demonstrate understanding of assistive devices/ modifications for ADL. 3=Patient will improve strength/tolerance for activity to enable patient to perform ADL's. Speech Fci Goals Fci Goals Pt will have functional verbal skills for expressing needs, wants, desires independently. Time Frame: 3 weeks Comprehension: 6 Expression: 6 Social Interaction: 7 Problem Solvin Memory: 5 GEOFFREY LONG OT Jun 16, 2018 12:07
== END 2018-06-16 10:30 | disposition home or self-care (01) | DRG 949 ==
PROVIDERS: ADMIT Family Medicine; ATTEND Physical Medicine & Rehabilitation
DX: Z48.811 Encounter for surgical aftercare following surgery on the nervous system (principal); Z86.011 Personal history of benign neoplasm of the brain; G81.91 Hemiplegia, unspecified affecting right dominant side; R26.81 Unsteadiness on feet; E87.1 Hypo-osmolality and hyponatremia; D72.829 Elevated white blood cell count, unspecified; T38.0X5A Adverse effect of glucocorticoids and synthetic analogues, initial encounter
CPT/HCPCS: 36415; 70450; 80048; 80053; 85007; 85027

== ENCOUNTER 2018-07-28 13:55 | Outpatient (RCR) | payer BC ==
[~2018-07-28 13:55] MED LIST changes: -GADOBUTROL 10 MMOL/10 ML (GADAVIST) VIAL IV ONE
== END 2018-07-31 | disposition home or self-care (01) ==
PROVIDERS: ATTEND Nurse Practitioner Acute Care
DX: R47.01 Aphasia (principal); G91.9 Hydrocephalus, unspecified; R41.9 Unspecified symptoms and signs involving cognitive functions and awareness; Z86.011 Personal history of benign neoplasm of the brain; Z98.2 Presence of cerebrospinal fluid drainage device

== ENCOUNTER 2018-08-22 13:47 | Outpatient (RCR) | payer BC | END 2018-08-23 17:00 | disposition home or self-care (01) | PROVIDERS: ATTEND Nurse Practitioner Acute Care | DX: R47.01 Aphasia (principal); G91.9 Hydrocephalus, unspecified; R41.9 Unspecified symptoms and signs involving cognitive functions and awareness; Z86.011 Personal history of benign neoplasm of the brain; Z98.2 Presence of cerebrospinal fluid drainage device ==

== ENCOUNTER 2018-10-03 10:33 | Emergency (ER) | payer BC ==
[~2018-10-03] VITALS: Ht 172.7 cm; Wt 80.3 kg
--- OUTSIDE RECORDS SUMMARY | 2018-10-03 10:43 | XMS REPORT ---
Author Author JOSEE DAWKINS Organization [facility] Address [address] [place] [address] Care Team Providers Care [employer] Field Supervisor Name Role Phone JOSEE DAWKINS Unavailable PROBLEMS Type Condition ICD9-CM Code [id number] Code Onset Dates Condition Status SNOMED Code Problem Hydrocephalus G91.9 Active 088820137 Problem Brain mass G93.9 Active 098756001 Problem Migraine without aura and without status migrainosus, not intractable G43.009 Active 761784061 ALLERGIES No Information ENCOUNTERS Encounter Location Date Diagnosis [place] [id number] [place] [phone] May, [facility] [id number] [place] [phone] May, [facility] [id number] [place] [address] May, Weakness of right lower extremity R29.898 ; Vision changes H53.9 ; Acute intractable headache, unspecified headache type R51 ; Brain mass G93.9 and Hydrocephalus G91.9 [facility] [id number] [place] [phone] May, Migraine without aura and without status migrainosus, not intractable G43.009 IMMUNIZATIONS No Known Immunizations SOCIAL HISTORY Never Assessed REASON FOR VISIT FYI PLAN OF CARE VITAL SIGNS MEDICATIONS Unknown Medications RESULTS No Results PROCEDURES No Known procedures INSTRUCTIONS MEDICATIONS ADMINISTERED No Known Medications
--- OUTSIDE RECORDS SUMMARY | 2018-10-03 10:43 | XMS REPORT ---
Author Author JOSEE DAWKINS Organization [facility] Address [address] [place] [address] Care Team Providers Care Molder Operator Name Role Phone JOSEE DAWKINS Unavailable PROBLEMS Type Condition ICD9-CM Code [id number] Code Onset Dates Condition Status SNOMED Code Problem Hydrocephalus G91.9 Active 265310597 Problem Brain mass G93.9 Active 071740429 Problem Migraine without aura and without status migrainosus, not intractable G43.009 Active 315007451 ALLERGIES No Information ENCOUNTERS Encounter Location Date Diagnosis [place] [id number] [place] [phone] May, [facility] [id number] [place] [phone] May, [facility] [id number] [place] [phone] May, Weakness of right lower extremity R29.898 ; Vision changes H53.9 ; Acute intractable headache, unspecified headache type R51 ; Brain mass G93.9 and Hydrocephalus G91.9 [facility] [address] [id number] [place] [phone] May, Migraine without aura and without status migrainosus, not intractable G43.009 IMMUNIZATIONS No Known Immunizations SOCIAL HISTORY Never Assessed REASON FOR VISIT FMLA PLAN OF CARE VITAL SIGNS MEDICATIONS Unknown Medications RESULTS No Results PROCEDURES No Known procedures INSTRUCTIONS MEDICATIONS ADMINISTERED No Known Medications
--- OUTSIDE RECORDS SUMMARY | 2018-10-03 10:44 | XMS REPORT ---
Author Author JOSEE DAWKINS Organization [facility] Address [address] [place] [address] Care Team Providers Care Blue Leather Sorter Name Role Phone JOSEE DAWKINS Unavailable PROBLEMS Type Condition ICD9-CM Code [id number] Code Onset Dates Condition Status SNOMED Code Problem Hydrocephalus G91.9 Active 160272566 Problem Brain mass G93.9 Active 456083631 Problem Migraine without aura and without status migrainosus, not intractable G43.009 Active 156182575 ALLERGIES No Known Allergies ENCOUNTERS Encounter Location Date Diagnosis [place] [id number] [phone] May, [facility] [address] [phone] May, [facility] [address] [address] May, Weakness of right lower extremity R29.898 ; Vision changes H53.9 ; Acute intractable headache, unspecified headache type R51 ; Brain mass G93.9 and Hydrocephalus G91.9 [place] [address] [address] May, Migraine without aura and without status migrainosus, not intractable G43.009 IMMUNIZATIONS Vaccine Route Administration Date Status TORADOL (IM) 60 MG/2ML (UP TO 15 MG) IM Intramuscular May 09, 2018 Administered ZOFRAN (IM) 2 MG/ML (PER 1 MG) 40 MG/20 ML IM Intramuscular May 09, 2018 Administered SOCIAL HISTORY Never Assessed REASON FOR VISIT Headache--[id number], Has had a headache since last night. Has had nausea, blurred vision since last night as well PLAN OF CARE Activity Details Follow Up 2 Weeks Reason:Migraines VITAL SIGNS Height 68 in 2018-05-09 Weight 180.2 lbs 2018-05-09 Temperature 98.3 degrees Fahrenheit 2018-05-09 Heart Rate 70 bpm 2018-05-09 Respiratory Rate 18 2018-05-09 BMI 27.40 kg/m2 2018-05-09 Blood pressure systolic 120 mmHg 2018-05-09 Blood pressure diastolic 82 mmHg 2018-05-09 MEDICATIONS Unknown Medications RESULTS No Results PROCEDURES Procedure Date Ordered Result Body Site TORADOL (IM) 60 MG/2ML (UP TO 15 MG) May 09, 2018 THER/PROPH/DIAG INJ, SC/IM May 09, 2018 ZOFRAN (IM) 2 MG/ML (PER 1 MG) 40 MG/20 ML May 09, 2018 INSTRUCTIONS MEDICATIONS ADMINISTERED No Known Medications
--- OUTSIDE RECORDS SUMMARY | 2018-10-03 10:44 | XMS REPORT | Continuity of Care Document ---
Author Author [facility] Address Unknown Phone Unavailable Allergies Active Description Code Type Severity Reaction Onset Reported/Identified Relationship to Patient Clinical Status Yes No Known Drug Allergies [id number] Drug Allergy Unknown N/A 05/12/2018 Medications There is no data. 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 05/12/2018 HARINI REYNOSO, YUVAL T Ot D72.829 ELEVATED WHITE BLOOD CELL COUNT, UNSPECI 05/12/2018 YUVAL SCHULER MD T Ot R06.02 SHORTNESS OF BREATH 05/12/2018 YUVAL SCHULER MD T Ot R07.89 OTHER CHEST PAIN 05/13/2018 YUVAL SCHULER MD T Ot D72.829 ELEVATED WHITE BLOOD CELL COUNT, UNSPECI 05/13/2018 YUVAL SCHULER MD T Ot R06.02 SHORTNESS OF BREATH 05/13/2018 YUVAL SCHULER MD T Ot R07.89 OTHER CHEST PAIN 05/17/2018 JOSEE DAWKINS APRN Ot G93.89 OTHER SPECIFIED DISORDERS OF BRAIN 05/17/2018 JOSEE DAWKINS APRN Ot R53.1 WEAKNESS 05/18/2018 JOSEE DAWKINS APRN Ot G91.9 HYDROCEPHALUS, UNSPECIFIED 05/18/2018 MARIZA, [facility]SEE J [facility] Ot G93.9 DISORDER OF BRAIN, UNSPECIFIED 05/18/2018 JOSEE ADWKINS APRN Ot G91.9 HYDROCEPHALUS, UNSPECIFIED 05/18/2018 MARIZAJOSEE GOEL [facility] Ot G93.9 DISORDER OF BRAIN, UNSPECIFIED 05/23/2018 MARIZAJOSEE [facility] Ot G91.9 HYDROCEPHALUS, UNSPECIFIED 05/23/2018 MARIZAJOSEE [facility] Ot G93.9 DISORDER OF BRAIN, UNSPECIFIED 06/16/2018 Ot D72.829 ELEVATED WHITE BLOOD CELL COUNT, UNSPECI 06/16/2018 Ot E87.1 HYPO- OSMOLALITY AND HYPONATREMIA 06/16/2018 Ot G81.91 HEMIPLEGIA, UNSPECIFIED AFFECTING RIGHT 06/16/2018 Ot R26.81 UNSTEADINESS ON FEET 06/16/2018 Ot T38.0X5A ADVERSE EFFECT OF GLUCOCORT/SYNTH ANALOG 06/16/2018 Ot Z48.811 ENCNTR FOR SURGICAL AFTCR FOL SURGERY ON 06/16/2018 Ot Z86.011 PERSONAL HISTORY OF BENIGN NEOPLASM OF T 07/26/2018 ROSEY SOLORZANO APRN Ot G91.9 HYDROCEPHALUS, UNSPECIFIED 07/26/2018 ROSEY SOLORZANO APRN Ot R41.9 UNSP SYMPTOMS AND SIGNS W COGNITIVE FUNC 07/26/2018 ROSEY SOLORZANO APRN Ot R47.01 APHASIA 07/26/2018 ROSEY SOLORZANO APRN Ot Z86.011 PERSONAL HISTORY OF BENIGN NEOPLASM OF T 07/26/2018 ROSEY SOLORZANO APRN Ot 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 07/31/2018 ROSEY SOLORZANO APRN Ot G91.9 HYDROCEPHALUS, UNSPECIFIED 07/31/2018 ROSEY SOLORZANO APRN Ot R41.9 UNSP SYMPTOMS AND SIGNS W COGNITIVE FUNC 07/31/2018 ROSEY SOLORZANO APRN Ot R47.01 APHASIA 07/31/2018 ROSEY SOLORZANO APRN Ot Z86.011 PERSONAL HISTORY OF BENIGN NEOPLASM OF T 07/31/2018 ROSEY SOLORZANO APRN Ot 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 08/01/2018 ROSEY SOLORZANO APRN Ot G91.9 HYDROCEPHALUS, UNSPECIFIED 08/01/2018 RASHAD, ROSEY A [facility] Ot R41.9 UNSP SYMPTOMS AND SIGNS W COGNITIVE FUNC 08/01/2018 RASHAD, ROSEY A [facility] Ot R47.01 APHASIA 08/01/2018 RASHAD, ROSEY A [facility] Ot Z86.011 PERSONAL HISTORY OF BENIGN NEOPLASM OF T 08/01/2018 RASHAD, ROSEY A [facility] Ot 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 08/01/2018 RASHAD, ROSEY A [facility] Ot G91.9 HYDROCEPHALUS, UNSPECIFIED 08/01/2018 RASHAD, ROSEY A [facility] Ot R41.9 UNSP SYMPTOMS AND SIGNS W COGNITIVE FUNC 08/01/2018 RASHAD, ROSEY A [facility] Ot R47.01 APHASIA 08/01/2018 RASHAD, ROSEY A [facility] Ot Z86.011 PERSONAL HISTORY OF BENIGN NEOPLASM OF T 08/01/2018 RASHAD, ROSEY A [facility] Ot 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 08/03/2018 RASHAD, ROSEY A [facility] Ot G91.9 HYDROCEPHALUS, UNSPECIFIED 08/03/2018 RASHAD, ROSEY A [facility] Ot R41.9 UNSP SYMPTOMS AND SIGNS W COGNITIVE FUNC 08/03/2018 RASHAD, ROSEY A [facility] Ot R47.01 APHASIA 08/03/2018 RASHAD, ROSEY A [facility] Ot Z86.011 PERSONAL HISTORY OF BENIGN NEOPLASM OF T 08/03/2018 RASHAD, ROSEY A [facility] Ot 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 08/05/2018 RASHAD, ROSYE A [facility] Ot G91.9 HYDROCEPHALUS, UNSPECIFIED 08/05/2018 RASHAD, ROSEY A [facility] Ot R41.9 UNSP SYMPTOMS AND SIGNS W COGNITIVE FUNC 08/05/2018 RASHAD, ROSEY A [facility] Ot R47.01 APHASIA 08/05/2018 RASHAD, ROSEY A [facility] Ot Z86.011 PERSONAL HISTORY OF BENIGN NEOPLASM OF T 08/05/2018 RASHAD, ROSEY A [facility] Ot 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 Results Test Result Range Complete blood count (CBC) with automated white blood cell (WBC) differential - 05/12/18 01:29 Blood leukocytes automated count (number/volume) 14.8 10*3/uL 4.3-11.0 Blood erythrocytes automated count (number/volume) 6.02 10*6/uL 4.35-5.85 Venous blood hemoglobin measurement (mass/volume) 17.7 g/dL 13.3-17.7 Blood hematocrit (volume fraction) 51 % 40-54 Automated erythrocyte mean corpuscular volume 85 [foz_us] 80-99 Automated erythrocyte mean corpuscular hemoglobin (mass per erythrocyte) 29 pg 25-34 Automated erythrocyte mean corpuscular hemoglobin concentration measurement ( mass/volume) 35 g/dL 32-36 Automated erythrocyte distribution width ratio 13.4 % 10.0-14.5 Automated blood platelet count (count/volume) 367 10*3/uL 130-400 Automated blood platelet mean volume measurement 8.9 [foz_us] 7.4-10.4 Automated blood neutrophils/100 leukocytes 70 % 42-75 Automated blood lymphocytes/100 leukocytes 22 % 12-44 Blood monocytes/100 leukocytes 7 % 0-12 Automated blood eosinophils/100 leukocytes 1 % 0-10 Automated blood basophils/100 leukocytes 0 % 0-10 Blood neutrophils automated count (number/volume) 10.3 10*3 1.8-7.8 Blood lymphocytes automated count (number/volume) 3.3 10*3 1.0-4.0 Blood monocytes automated count (number/volume) 1.0 10*3 0.0-1.0 Automated eosinophil count 0.1 10*3/uL 0.0-0.3 Automated blood basophil count (count/volume) 0.0 10*3/uL 0.0-0.1 Comprehensive metabolic panel - 05/12/18 01:29 Serum or plasma sodium measurement (moles/volume) 140 mmol/L 135-145 Serum or plasma potassium measurement (moles/volume) 4.3 mmol/L 3.6-5.0 Serum or plasma chloride measurement (moles/volume) 104 mmol/L 98-107 Carbon dioxide 24 mmol/L 21-32 Serum or plasma anion gap determination (moles/volume) 12 mmol/L 5-14 Serum or plasma urea nitrogen measurement (mass/volume) 25 mg/dL 7-18 Serum or plasma creatinine measurement (mass/volume) 1.24 mg/dL 0.60-1.30 Serum or plasma urea nitrogen/creatinine mass ratio 20 NRG Serum or plasma creatinine measurement with calculation of estimated glomerular filtration rate > NRG Serum or plasma glucose measurement (mass/volume) 91 mg/dL 70-105 Serum or plasma calcium measurement (mass/volume) 10.4 mg/dL 8.5-10.1 Serum or plasma total bilirubin measurement (mass/volume) 0.6 mg/dL 0.1-1.0 Serum or plasma alkaline phosphatase measurement (enzymatic activity/volume) 60 U/L 40-136 Serum or plasma aspartate aminotransferase measurement (enzymatic activity/ volume) 13 U/L 5-34 Serum or plasma alanine aminotransferase measurement (enzymatic activity/volume ) 12 U/L 0-55 Serum or plasma protein measurement (mass/volume) 8.0 g/dL 6.4-8.2 Serum or plasma albumin measurement (mass/volume) 4.9 g/dL 3.2-4.5 Serum or plasma troponin i.cardiac measurement (mass/volume) - 05/12/18 01:29 Serum or plasma troponin i.cardiac measurement (mass/volume) < ng/ mL <0.30 Blood manual differential performed detection - 05/12/18 01:29 Blood monocytes/100 leukocytes 9 % NR Manual blood segmented neutrophils/100 leukocytes 71 % NR Manual blood lymphocytes/100 leukocytes 20 % NR Blood erythrocyte morphology finding identification [facility] Complete blood count (CBC) with automated white blood cell (WBC) differential - 05/16/18 15:38 Blood leukocytes automated count (number/volume) 9.0 10*3/uL 4.3-11.0 Blood erythrocytes automated count (number/volume) 6.00 10*6/uL 4.35-5.85 Venous blood hemoglobin measurement (mass/volume) 17.5 g/dL 13.3-17.7 Blood hematocrit (volume fraction) 51 % 40-54 Automated erythrocyte mean corpuscular volume 85 [foz_us] 80-99 Automated erythrocyte mean corpuscular hemoglobin (mass per erythrocyte) 29 pg 25-34 Automated erythrocyte mean corpuscular hemoglobin concentration measurement ( mass/volume) 34 g/dL 32-36 Automated erythrocyte distribution width ratio 13.4 % 10.0-14.5 Automated blood platelet count (count/volume) 383 10*3/uL 130-400 Automated blood platelet mean volume measurement 9.1 [foz_us] 7.4-10.4 Automated blood neutrophils/100 leukocytes 59 % 42-75 Automated blood lymphocytes/100 leukocytes 34 % 12-44 Blood monocytes/100 leukocytes 6 % 0-12 Automated blood eosinophils/100 leukocytes 1 % 0-10 Automated blood basophils/100 leukocytes 0 % 0-10 Blood neutrophils automated count (number/volume) 5.3 10*3 1.8-7.8 Blood lymphocytes automated count (number/volume) 3.0 10*3 1.0-4.0 Blood monocytes automated count (number/volume) 0.5 10*3 0.0-1.0 Automated eosinophil count 0.1 10*3/uL 0.0-0.3 Automated blood basophil count (count/volume) 0.0 10*3/uL 0.0-0.1 Serum heterophile antibody titer - 05/16/18 15:38 Serum heterophile antibody titer NEGATIVE NEGATIVE THYROID STIMULATING HORMONE - 05/16/18 15:38 THYROID STIMULATING HORMONE 0.84 u[iU]/mL 0.35-4.94 Comprehensive metabolic panel - 06/03/18 05:17 Serum or plasma sodium measurement (moles/volume) 133 mmol/L 135-145 Serum or plasma potassium measurement (moles/volume) 4.1 mmol/L 3.6-5.0 Serum or plasma chloride measurement (moles/volume) 98 mmol/L 98-107 Carbon dioxide 26 mmol/L 21-32 Serum or plasma anion gap determination (moles/volume) 9 mmol/L 5-14 Serum or plasma urea nitrogen measurement (mass/volume) 21 mg/dL 7-18 Serum or plasma creatinine measurement (mass/volume) 0.73 mg/dL 0.60-1.30 Serum or plasma urea nitrogen/creatinine mass ratio 29 NRG Serum or plasma creatinine measurement with calculation of estimated glomerular filtration rate > NRG Serum or plasma glucose measurement (mass/volume) 120 mg/dL 70-105 Serum or plasma calcium measurement (mass/volume) 8.8 mg/dL 8.5-10.1 Serum or plasma total bilirubin measurement (mass/volume) 0.6 mg/dL 0.1-1.0 Serum or plasma alkaline phosphatase measurement (enzymatic activity/volume) 45 U/L 40-136 Serum or plasma aspartate aminotransferase measurement (enzymatic activity/ volume) 13 U/L 5-34 Serum or plasma alanine aminotransferase measurement (enzymatic activity/volume ) 22 U/L 0-55 Serum or plasma protein measurement (mass/volume) 5.9 g/dL 6.4-8.2 Serum or plasma albumin measurement (mass/volume) 3.7 g/dL 3.2-4.5 Complete blood count (CBC) with automated white blood cell (WBC) differential - 06/03/18 05:38 Blood leukocytes automated count (number/volume) 20.2 10*3/uL 4.3-11.0 Blood erythrocytes automated count (number/volume) 4.10 10*6/uL 4.35-5.85 Venous blood hemoglobin measurement (mass/volume) 12.5 g/dL 13.3-17.7 Blood hematocrit (volume fraction) 37 % 40-54 Automated erythrocyte mean corpuscular volume 90 [foz_us] 80-99 Automated erythrocyte mean corpuscular hemoglobin (mass per erythrocyte) 31 pg 25-34 Automated erythrocyte mean corpuscular hemoglobin concentration measurement ( mass/volume) 34 g/dL 32-36 Automated erythrocyte distribution width ratio 15.5 % 10.0-14.5 Automated blood platelet count (count/volume) 410 10*3/uL 130-400 Automated blood platelet mean volume measurement 8.8 [foz_us] 7.4-10.4 Automated blood neutrophils/100 leukocytes 82 % 42-75 Automated blood lymphocytes/100 leukocytes 11 % 12-44 Blood monocytes/100 leukocytes 7 % 0-12 Automated blood eosinophils/100 leukocytes 0 % 0-10 Automated blood basophils/100 leukocytes 0 % 0-10 Blood neutrophils automated count (number/volume) 16.6 10*3 1.8-7.8 Blood lymphocytes automated count (number/volume) 2.1 10*3 1.0-4.0 Blood monocytes automated count (number/volume) 1.5 10*3 0.0-1.0 Automated eosinophil count 0.0 10*3/uL 0.0-0.3 Automated blood basophil count (count/volume) 0.0 10*3/uL 0.0-0.1 Blood manual differential performed detection - 06/03/18 05:38 Blood monocytes/100 leukocytes 9 % NRG Manual blood segmented neutrophils/100 leukocytes 81 % NRG Manual blood lymphocytes/100 leukocytes 10 % NRG Blood polychromasia detection by light microscopy SLIGHT NRG Automated blood complete blood count (hemogram) panel - 06/07/18 05:19 Blood leukocytes automated count (number/volume) 14.0 10*3/uL 4.3-11.0 Blood erythrocytes automated count (number/volume) 4.00 10*6/uL 4.35-5.85 Venous blood hemoglobin measurement (mass/volume) 11.8 g/dL 13.3-17.7 Blood hematocrit (volume fraction) 37 % 40-54 Automated erythrocyte mean corpuscular volume 92 [foz_us] 80-99 Automated erythrocyte mean corpuscular hemoglobin (mass per erythrocyte) 30 pg 25-34 Automated erythrocyte mean corpuscular hemoglobin concentration measurement ( mass/volume) 32 g/dL 32-36 Automated erythrocyte distribution width ratio 15.8 % 10.0-14.5 Automated blood platelet count (count/volume) 348 10*3/uL 130-400 Automated blood platelet mean volume measurement 8.6 [foz_us] 7.4-10.4 Whole blood basic metabolic panel - 06/07/18 05:19 Serum or plasma sodium measurement (moles/volume) 136 mmol/L 135-145 Serum or plasma potassium measurement (moles/volume) 3.2 mmol/L 3.6-5.0 Serum or plasma chloride measurement (moles/volume) 101 mmol/L 98-107 Carbon dioxide 28 mmol/L 21-32 Serum or plasma anion gap determination (moles/volume) 7 mmol/L 5-14 Serum or plasma urea nitrogen measurement (mass/volume) 15 mg/dL 7-18 Serum or plasma creatinine measurement (mass/volume) 0.72 mg/dL 0.60-1.30 Serum or plasma urea nitrogen/creatinine mass ratio 21 NRG Serum or plasma creatinine measurement with calculation of estimated glomerular filtration rate > NRG Serum or plasma glucose measurement (mass/volume) 84 mg/dL 70-105 Serum or plasma calcium measurement (mass/volume) 8.7 mg/dL 8.5-10.1 Encounters ACCT No. Visit Date/Time Discharge Status Pt. Type Provider Facility Loc./Unit Complaint [id number] 05/16/2018 13:20:00 05/16/2018 23:59:59 CLS Outpatient MARCO MENDOZA [facility] [id number] 08/22/2018 13:47:00 08/23/2018 17:00:00 DIS Outpatient ROSEY SOLORZANO [facility] REHAB HYDROCEPHALUS; APHASIA;MEMORY IMPAIRMENT [id number] 07/28/2018 13:55:00 07/31/2018 00:01:00 DIS Outpatient ROSEY SOLORZANO [facility] REHAB HYDROCEPHALUS; APHASIA;MEMORY IMPAIRMENT [id number] 05/17/2018 13:37:00 05/17/2018 23:59:59 CLS Outpatient JOSEE DAWKINS [facility] RAD BRAIN MASS, HYDROCEPHALUS [id number] 05/16/2018 15:18:00 05/16/2018 23:59:59 CLS Outpatient JOSEE DAWKINS APRN [facility] RAD WEAKNESS OF RIGHT LOWER EXTREMITY, VISION CHANGES [id number] 05/11/2018 23:54:00 05/12/2018 02:53:00 DIS Emergency HARINI REYNOSO, YUVAL Ernandez [facility] ER SOB [id number] 02/24/2018 14:36:00 02/24/2018 23:59:59 CLS Outpatient FRANTZ LOCKHART [facility] OCC CRUSH INJURY ATTN DIGITAL 2-5 [facility] [id number] 06/03/2018 12:35:00 Document Registration [id number] 04/21/2013 14:46:00 04/21/2013 23:59:59 CLS Outpatient
--- OUTSIDE RECORDS SUMMARY | 2018-10-03 10:44 | XMS REPORT ---
Author Author JOSEE DAWKINS Organization [facility] [place] Address [address] [place] [address] Care Team Providers Care Review Coordinator Name Role Phone JOSEE DAWKINS Unavailable PROBLEMS Type Condition ICD9-CM Code YIV64-VG Code Onset Dates Condition Status SNOMED Code Problem Hydrocephalus G91.9 Active 603384802 Problem Brain mass G93.9 Active 520888331 Problem Migraine without aura and without status migrainosus, not intractable G43.009 Active 462781235 ALLERGIES No Known Allergies ENCOUNTERS Encounter Location Date Diagnosis [place] [id number] [address] May, [facility] [place] [address] [address] May, [facility] [place] [address] [address] May, Weakness of right lower extremity R29.898 ; Vision changes H53.9 ; Acute intractable headache, unspecified headache type R51 ; Brain mass G93.9 and Hydrocephalus G91.9 [facility] [place] [address] [address] May, Migraine without aura and without status migrainosus, not intractable G43.009 IMMUNIZATIONS No Known Immunizations SOCIAL HISTORY Never Assessed REASON FOR VISIT Hospital f/u on chest pain -- kyra carrington PLAN OF CARE Activity Details Follow Up prn Reason: Pending Test TSH (OUTSIDE LAB) VITAL SIGNS Height 68 in 2018-05-16 Weight 178.0 lbs 2018-05-16 Temperature 98.0 degrees Fahrenheit 2018-05-16 Heart Rate 78 bpm 2018-05-16 Respiratory Rate 20 2018-05-16 BMI 27.06 kg/m2 2018-05-16 Blood pressure systolic 116 mmHg 2018-05-16 Blood pressure diastolic 78 mmHg 2018-05-16 MEDICATIONS Unknown Medications RESULTS Name Result Date Reference Range MRI : Brain w/ and w/o Contrast 2018-05-17 CT Scan : Head/Brain w/o & w/ Contrast 2018-05-16 CBC W/ AUTO DIFF (OUTSIDE LAB) 2018-05-16 MONO TEST 2018-05-16 Request Problem Request Problem Mononucleosis Test, Qual HETEROPHILE, MONO SCREEN PROCEDURES Procedure Date Ordered Result Body Site HETEROPHILE ANTIBODIES May 16, 2018 INSTRUCTIONS MEDICATIONS ADMINISTERED No Known Medications
--- NOTE | 2018-10-03 11:15 | ED Headache ---
General Stated Complaint: HEADACHES Source: patient, family History of Present Illness Date Seen by Provider: Oct 03, 2018 Time Seen by Provider: 11:10 Initial Comments To ER per private vehicle accompanied by mother with reports of unsteady gait, numbness and tingling in his right arm and leg, dizziness and vomiting times one this morning. 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 Fuchs. At the time of diagnosis of the neurocytoma he was having headaches, dizziness and gait instability. After resection those symptoms resolved over a period of time (he was admitted here to rehabilitation floor for a few weeks). Symptoms had remained gone until this morning. No head injury, no fevers. He does have a ventriculoperitoneal shunt. He rates his headache at 3 out of 10 Timing/Duration: 4-6 hours Severity/Quality: moderate Location: global Associated Symptoms: No confusion, No fever/chills; nausea/vomiting; No stiff neck Allergies and Home Medications Allergies Coded Allergies: No Known Drug Allergies (Unverified , 05/12/18) Home Medications Carboxymethylcellulose Sodium 15 Ml Drops, 1 DROP OU DAILY PRN for DRY EYES, ( Reported) Fludrocortisone Acetate 0.1 Mg Tab, 0.2 MG PO BID Prescribed by: JORDY QUINTANILLA on 06/15/181745 Sennosides/Docusate Sodium 1 Each Tablet, 1 EA PO BID Prescribed by: JORDY QUINTANILLA on 06/15/181745 Sodium Chloride 1 Gm Tab, 2 GM PO TID Prescribed by: JORDY QUINTANILLA on 06/15/181745 Patient Home Medication List Home Medication List Reviewed: Yes Review of Systems Review of Systems Constitutional: see HPI; No chills Eyes: No Symptoms Reported Ears, Nose, Mouth, Throat: no symptoms reported Respiratory: no symptoms reported Cardiovascular: no symptoms reported Gastrointestinal: nausea, vomiting Genitourinary: no symptoms reported Musculoskeletal: no symptoms reported Skin: no symptoms reported Psychiatric/Neurological: Headache Past Nlgopbt-Wgisks-Skxjgv Hx Patient Social History 2nd Hand Smoke Exposure: No Recent Hopitalizations: Yes ([facility] - BRAIN TUMOR) Immunizations Up To Date Tetanus Booster (TDap): Less than 5yrs Seasonal Allergies Seasonal Allergies: No Past Medical History Surgeries: Yes (CRANIOTOMY) Respiratory: No Currently Using CPAP: No Currently Using BIPAP: No Cardiac: No Neurological: Yes Genitourinary: No Gastrointestinal: No Musculoskeletal: Yes (RIGHT LEG WEAKNESS) Endocrine: No HEENT: Yes (BLURRY RIGHT EYE ) Loss of Vision: Right Hearing Impairment: Denies Cancer: No (BENIGN BRAIN TUMOR) Did You Recieve Any Treatments: No Psychosocial: No Integumentary: No Blood Disorders: No Family Medical History Patient reports no known family medical history. Physical Exam Vital Signs Vital Signs - First Documented 10/03/18 11:05 Temp 98.0 Pulse 58 Resp 22 B/P (MAP) 130/94 (106) Pulse Ox 99 O2 Delivery Room Air Capillary Refill : Height, Weight, BMI Height: 5'8.00" Weight: 168lbs. 2.0oz. 76.556434ru; 25.6 BMI Method:Stated General Appearance: WD/WN, no apparent distress HEENT: PERRL/EOMI, normal ENT inspection, other (no nystagmus) Neck: non-tender, full range of motion Respiratory: no respiratory distress, no accessory muscle use Gastrointestinal: normal bowel sounds, non tender Extremities: normal range of motion, non-tender Psychiatric: alert, oriented x 3 Crainal Nerves: normal hearing, normal speech, PERRL Skin: normal color, warm/dry Comments Upper and lower extremity strength is equal bilaterally. Progress/Results/Core Measures Results/Orders Lab Results Laboratory Tests Test 10/03/18 11:18 Range/Units White Blood Count 10.1 4.3-11.0 10^3/uL Red Blood Count 5.68 4.35-5.85 10^6/uL Hemoglobin 14.8 13.3-17.7 G/DL Hematocrit 45 40-54 % Mean Corpuscular Volume 80 80-99 FL Mean Corpuscular Hemoglobin 26 25-34 PG Mean Corpuscular Hemoglobin Concent 33 32-36 G/DL Red Cell Distribution Width 13.9 10.0-14.5 % Platelet Count 385 130-400 10^3/uL Mean Platelet Volume 8.9 7.4-10.4 FL Neutrophils (%) (Auto) 62 42-75 % Lymphocytes (%) (Auto) 30 12-44 % Monocytes (%) (Auto) 6 0-12 % Eosinophils (%) (Auto) 2 0-10 % Basophils (%) (Auto) 0 0-10 % Neutrophils # (Auto) 6.3 1.8-7.8 X 10^3 Lymphocytes # (Auto) 3.1 1.0-4.0 X 10^3 Monocytes # (Auto) 0.6 0.0-1.0 X 10^3 Eosinophils # (Auto) 0.2 0.0-0.3 10^3/uL Basophils # (Auto) 0.0 0.0-0.1 10^3/uL Prothrombin Time 14.3 12.2-14.7 SEC INR Comment 1.1 0.8-1.4 Sodium Level 141 135-145 MMOL/L Potassium Level 3.7 3.6-5.0 MMOL/L Chloride Level 104 98-107 MMOL/L Carbon Dioxide Level 26 21-32 MMOL/L Anion Gap 11 5-14 MMOL/L Blood Urea Nitrogen 20 H 7-18 MG/DL Creatinine 1.01 0.60-1.30 MG/DL Estimat Glomerular Filtration Rate > 60 BUN/Creatinine Ratio 20 Glucose Level 105 70-105 MG/DL Calcium Level 9.9 8.5-10.1 MG/DL Corrected Calcium 8.5-10.1 MG/DL Total Bilirubin 0.6 0.1-1.0 MG/DL Aspartate Amino Transf (AST/SGOT) 13 5-34 U/L Alanine Aminotransferase (ALT/SGPT) 9 0-55 U/L Alkaline Phosphatase 96 40-136 U/L Total Protein 7.6 6.4-8.2 GM/DL Albumin 4.8 H 3.2-4.5 GM/DL My Orders Orders - CHARISSA WALKER APRN Cbc With Automated Diff (10/03/18 11:08) Comprehensive Metabolic Panel (10/03/18 11:08) Protime With Inr (10/03/18 11:08) Iv Heplock-Insert (Order) (10/03/18 11:08) Ct Head Wo (10/03/18 11:08) Meclizine Tablet (Antivert Tablet) (10/03/18 12:00) Acetaminophen Tablet/Caplet (Tylenol T (10/03/18 12:00) Ekg Tracing (10/03/18 11:55) Vital Signs/I&O 10/03/18 11:05 Temp 98.0 Pulse 58 Resp 22 B/P (MAP) 130/94 (106) Pulse Ox 99 O2 Delivery Room Air Diagnostic Imaging Diagonstic Imaging: CT Comments NAME: LIO [facility]ULL [facility] REC#: [id number] PT STATUS: REG ER : 1995 PHYSICIAN: CHARISSA WALKER APRN ADMIT DATE: 10/03/18/ER Draft Date of Exam:10/03/18 CT HEAD WO PROCEDURE: CT head without contrast. TECHNIQUE: Multiple contiguous axial images were obtained through the brain without the use of intravenous contrast. INDICATION: History of prior brain surgery for frontal lobe tumor. The patient complains of dizziness and chest pain. Correlation is made with prior CT from 06/08/2018. Postsurgical changes of left frontal craniotomy are noted. There appears to be a CABIN OUTFITTER shunt tube in the left posterior parietal-occipital region with the tip extending in the region of the left occipital horn. There are areas of encephalomalacia in the left frontal lobe from prior surgery. There has also been performed a right frontal demetrio hole. There has been some decompression of the ventricles since prior CT. No sulcal effacement is identified. There is no midline shift. No acute intra-axial or extra-axial hemorrhage is detected. Cisterns are patent. Visualized paranasal sinuses are clear. IMPRESSION: Postsurgical changes. No acute intracranial process is detected. Dictated on workstation # [id number] Dict: 10/03/18 1144 Trans: 10/03/18 1148 CVB [id number] Interpreted by: CINDY MCCARTHY MD Electronically signed by: Departure Communication (Admissions) Spoke with Dr Tam hodgson [place] at this time. They are scheduled to see Lio on October 19 and repeat an MRI at that time. Patient has no sign of infection such as leukocytosis or elevated WBC, he does have a history of hyponatremia but sodium today is fine. Extremity strength is equal bilaterally. He walks unassisted. Impression Primary Impression: history of neurocytoma Additional Impressions: Paresthesia of right arm and leg Headache Disposition: 01 HOME, SELF-CARE Condition: Stable Departure-Patient Inst. Decision time for Depature: 12:13 Referrals: LAMIN FUCHS MD (PCP) Primary Care Physician Patient Instructions: Headache, Adult (DC) Add. Discharge Instructions: 1. Return to the emergency room for any concerns. Keep your appointment with Dr. Mandujano on October 19. They are planning an MRI at the time of that visit. Work/School Note: Work Release Form Date Seen in the Emergency Department: Oct 03, 2018 Return to Work: Oct 05, 2018 CHARISSA WALKER APRN Oct 03, 2018 11:15
[2018-10-03 11:26] LABS: BASOPHILS % (AUTO) 0 % (0-10); EOSINOPHILS # (AUTO) 0.2 10^3/uL (0.0-0.3); EOSINOPHILS % (AUTO) 2 % (0-10); HEMATOCRIT 45 % (40-54); HEMOGLOBIN 14.8 G/DL (13.3-17.7); LYMPHOCYTES # (AUTO) 3.1 X 10^3 (1.0-4.0); LYMPHOCYTES % (AUTO) 30 % (12-44); MEAN CORPUSCULAR HEMOGLOBIN 26 PG (25-34); MEAN CORPUSCULAR HGB CONC 33 G/DL (32-36); MEAN CORPUSCULAR VOLUME 80 FL (80-99); MEAN PLATELET VOLUME 8.9 FL (7.4-10.4); MONOCYTES # (AUTO) 0.6 X 10^3 (0.0-1.0); MONOCYTES % (AUTO) 6 % (0-12); NEUTROPHILS # (AUTO) 6.3 X 10^3 (1.8-7.8); NEUTROPHILS % (AUTO) 62 % (42-75); PLATELET COUNT 385 10^3/uL (130-400); RED BLOOD COUNT 5.68 10^6/uL (4.35-5.85); RED CELL DISTRIBUTION WIDTH 13.9 % (10.0-14.5); WHITE BLOOD COUNT 10.1 10^3/uL (4.3-11.0)
[2018-10-03 11:44] LABS: INR 1.1 (0.8-1.4); PROTHROMBIN TIME PATIENT 14.3 SEC (12.2-14.7)
--- NOTE | 2018-10-03 11:49 | Diagnostic Imaging Report ---
PROCEDURE: CT head without contrast. TECHNIQUE: Multiple contiguous axial images were obtained through the brain without the use of intravenous contrast. INDICATION: History of prior brain surgery for frontal lobe tumor. The patient complains of dizziness and chest pain. Correlation is made with prior CT from 06/08/2018. Postsurgical changes of left frontal craniotomy are noted. There appears to be a BASEBALL CLUB MANAGER shunt tube in the left posterior parietal-occipital region with the tip extending in the region of the left occipital horn. There are areas of encephalomalacia in the left frontal lobe from prior surgery. There has also been performed a right frontal demetrio hole. There has been some decompression of the ventricles since prior CT. No sulcal effacement is identified. There is no midline shift. No acute intra-axial or extra-axial hemorrhage is detected. Cisterns are patent. Visualized paranasal sinuses are clear. IMPRESSION: Postsurgical changes. No acute intracranial process is detected. Dictated by: Dictated on workstation # [id number]
[2018-10-03 11:50] LABS: ALANINE AMINOTRANSFERASE 9 U/L (0-55); ALBUMIN 4.8 GM/DL (3.2-4.5); ALKALINE PHOSPHATASE 96 U/L (40-136); BILIRUBIN,TOTAL 0.6 MG/DL (0.1-1.0); BUN/CREATININE RATIO 20; CALCIUM 9.9 MG/DL (8.5-10.1); CARBON DIOXIDE 26 MMOL/L (21-32); CHLORIDE 104 MMOL/L (98-107); CREATININE SERUM 1.01 MG/DL (0.60-1.30); GFR ESTIMATED > 60; GLUCOSE 105 MG/DL (70-105); POTASSIUM 3.7 MMOL/L (3.6-5.0); SODIUM 141 MMOL/L (135-145); TOTAL PROTEIN 7.6 GM/DL (6.4-8.2)
[2018-10-03] MEDS ORDERED: MECLIZINE 25 MG (ANTIVERT) TAB PO ONE (12:00)
[2018-10-03] MEDS ORDERED: ACETAMINOPHEN 325 MG TABLET PO ONE (12:00)
[2018-10-03 12:17] VITALS: BP 130/82
== END 2018-10-03 12:17 | disposition home or self-care (01) ==
LOC: EDUNIT# 10:33 → ER 10:34
DX: R51 Headache (principal); R20.2 Paresthesia of skin; Z79.51 Long term (current) use of inhaled steroids; Z98.890 Other specified postprocedural states; Z86.011 Personal history of benign neoplasm of the brain
CPT/HCPCS: 36415; 70450; 80053; 85025; 85610; 93005

== ENCOUNTER 2019-06-04 00:02 | Emergency (ER) | payer BC | END 2019-06-04 00:43 | disposition home or self-care (01) | LOC: ER 00:02 ==

== ENCOUNTER 2019-10-09 23:07 | Emergency (ER) | payer BC ==
[~2019-10-09] VITALS: Ht 172 cm; Wt 73.0 kg
[2019-10-09 23:20] LABS: BASOPHILS # (AUTO) 0.1 10^3/uL (0.0-0.1); BASOPHILS % (AUTO) 0 % (0-10); EOSINOPHILS # (AUTO) 0.1 10^3/uL (0.0-0.3); EOSINOPHILS % (AUTO) 1 % (0-10); HEMATOCRIT 53 % (40-54); HEMOGLOBIN 17.1 G/DL (13.3-17.7); LYMPHOCYTES # (AUTO) 6.5 X 10^3 (1.0-4.0); LYMPHOCYTES % (AUTO) 46 % (12-44); MEAN CORPUSCULAR HEMOGLOBIN 28 PG (25-34); MEAN CORPUSCULAR HGB CONC 33 G/DL (32-36); MEAN CORPUSCULAR VOLUME 85 FL (80-99); MEAN PLATELET VOLUME 9.4 FL (7.4-10.4); MONOCYTES # (AUTO) 0.7 X 10^3 (0.0-1.0); MONOCYTES % (AUTO) 5 % (0-12); NEUTROPHILS # (AUTO) 6.8 X 10^3 (1.8-7.8); NEUTROPHILS % (AUTO) 48 % (42-75); PLATELET COUNT 364 10^3/uL (130-400); RED CELL DISTRIBUTION WIDTH 13.3 % (10.0-14.5); WHITE BLOOD COUNT 14.2 10^3/uL (4.3-11.0)
[2019-10-09] MEDS ORDERED: ONDANSETRON 4 MG/2 ML (SDV) Z0FRAN IVP ONE (23:30)
[2019-10-09] MEDS ORDERED: LEVETIRACETAM INJECTION 500 MG in NS (IVPB) 100 ML IV ONE (23:30)
[2019-10-09 23:33] LABS: ALANINE AMINOTRANSFERASE 28 U/L (0-55); ALBUMIN 5.2 GM/DL (3.2-4.5); ALKALINE PHOSPHATASE 93 U/L (40-136); BILIRUBIN,TOTAL 0.6 MG/DL (0.1-1.0); BUN/CREATININE RATIO 16; CALCIUM 10.2 MG/DL (8.5-10.1); CARBON DIOXIDE 17 MMOL/L (21-32); CHLORIDE 102 MMOL/L (98-107); CREATININE SERUM 1.09 MG/DL (0.60-1.30); GFR ESTIMATED > 60; GLUCOSE 98 MG/DL (70-105); MAGNESIUM 2.1 MG/DL (1.6-2.4); POTASSIUM 3.9 MMOL/L (3.6-5.0); SODIUM 141 MMOL/L (135-145); TOTAL PROTEIN 8.4 GM/DL (6.4-8.2)
[2019-10-09 23:42] LABS: BAND NEUTROPHILS 1 %; LYMPHOCYTES % (MANUAL) 38 %; MONOCYTES % (MANUAL) 7 %; NEUTROPHILS % (MANUAL) 54 %
--- NOTE | 2019-10-10 00:06 | ED Neurological Problem ---
General Chief Complaint: Neurological Problems Stated Complaint: SEIZURE Nursing Triage Note: PT ARRIVES TO ROOM 4 VIA EMS, ONSITE WITNESSESS OBSERVED THE PT FALL FROM A STANDING POSITION AND HAVE SEIZURE LIKE ACTIVITY FOR ABOUT THREE MINUTES, PT IS AAOX4 UPON PRESENTATION, VERBALIZES A HX OF SEIZURES D/T BRAIN TUMOR REMOVAL. DENIES HEAD OR NECK PAIN, REMEMBERS REMOTE DETAILS OF THE EVENT, WOKE UP ON THE FLOOR. Nursing Sepsis Screen: No Definite Risk Source: patient, EMS Exam Limitations: no limitations History of Present Illness Date Seen by Provider: Oct 09, 2019 Time Seen by Provider: 23:09 Initial Comments This 24-year-old young man presents to the emergency room via EMS after he had a witnessed seizure and fell to the ground. Witnesses stated he began to seize and then fell. He denies any injury. EMS reports he was post ictal initially but he is now fully alert and oriented and conversational. Vital signs are stable. Patient is presently taking Keppra 1000 mg once a day. He is being followed by a neurologic team at [facility] because of history of benign brain tumor. He had that resected about a year ago. He has some chronic right-sided deficits with facial and extremity weakness. He states those are unchanged at present. He reports starting to have seizures in May of this year. This is his third or fourth seizure. His last seizure was in September. His last dose of Keppra was early afternoon. Allergies and Home Medications Allergies Coded Allergies: No Known Drug Allergies (Unverified , 05/12/18) Home Medications Carboxymethylcellulose Sodium 15 Ml Drops, 1 DROP OU DAILY PRN for DRY EYES, (Reported) Fludrocortisone Acetate 0.1 Mg Tab, 0.2 MG PO BID Prescribed by: JORDY QUINTANILLA on 06/15/181745 Sennosides/Docusate Sodium 1 Each Tablet, 1 EA PO BID Prescribed by: JORDY QUINTANILLA on 06/15/181745 Sodium Chloride 1 Gm Tab, 2 GM PO TID Prescribed by: JORDY QUINTANILLA on 06/15/181745 Patient Home Medication List Home Medication List Reviewed: Yes Review of Systems Review of Systems Constitutional: no symptoms reported Eyes: No Symptoms Reported Ears, Nose, Mouth, Throat: no symptoms reported Respiratory: no symptoms reported Cardiovascular: no symptoms reported Gastrointestinal: no symptoms reported Genitourinary: no symptoms reported Musculoskeletal: no symptoms reported Skin: no symptoms reported Psychiatric/Neurological: See HPI Endocrine: No Symptoms Reported Hematologic/Lymphatic: No Symptoms Reported Past Zpacvby-Pewqvc-Wsxdgr Hx Past Med/Social Hx: Reviewed and Corrections made Patient Social History Alcohol Use: Denies Use Recreational Drug Use: No Smoking Status: Never a Smoker 2nd Hand Smoke Exposure: No Recent Foreign Travel: No Contact w/Someone Who Travel: No Recent Infectious Disease Expo: No Recent Hopitalizations: No Physical Abuse: No Sexual Abuse: No Mistreated: No Fear: No Immunizations Up To Date Tetanus Booster (TDap): Unknown PED Vaccines UTD: Yes Seasonal Allergies Seasonal Allergies: No Past Medical History Surgeries: Yes (CRANIOTOMY-BRAIN TUMOR REMOVED) Respiratory: No Currently Using CPAP: No Currently Using BIPAP: No Cardiac: No Neurological: Yes (chronic right sided extremity and facial weakness since res ection of benign brain tumor) Seizure Disorder Genitourinary: No Gastrointestinal: No Musculoskeletal: Yes (RIGHT LEG WEAKNESS) Endocrine: No HEENT: Yes (BLURRY RIGHT EYE ) Loss of Vision: Right Hearing Impairment: Denies Cancer: No (BENIGN BRAIN TUMOR) Did You Recieve Any Treatments: No Psychosocial: No Integumentary: No Blood Disorders: No Family Medical History Patient reports no known family medical history. Physical Exam Vital Signs Vital Signs - First Documented 10/09/19 23:08 Temp 35.7 Pulse 72 Resp 20 B/P (MAP) 133/80 (97) Pulse Ox 97 O2 Delivery Room Air Capillary Refill : Less Than 3 Seconds Height, Weight, BMI Height: 5'8.00" Weight: 177lbs. 2.0oz. 80.737034ft; 24.00 BMI Method:Stated General Appearance: WD/WN, no apparent distress HEENT: PERRL/EOMI, normal ENT inspection, TMs normal Neck: normal inspection Respiratory: lungs clear, normal breath sounds, no respiratory distress Cardiovascular: regular rate, rhythm, no edema, no murmur Gastrointestinal: non tender, soft Extremities: normal inspection, no pedal edema Neurologic/Psychiatric: alert, normal mood/affect, oriented x 3, motor weakness (subtle weakness in the right face and extremities) Crainal Nerves: normal hearing, normal speech, PERRL Coordination/Gait: normal finger to nose Skin: normal color, warm/dry Progress/Results/Core Measures Results/Orders Lab Results Laboratory Tests Test 10/09/19 23:08 Range/Units White Blood Count 14.2 H 4.3-11.0 10^3/uL Red Blood Count 6.18 H 4.35-5.85 10^6/uL Hemoglobin 17.1 13.3-17.7 G/DL Hematocrit 53 40-54 % Mean Corpuscular Volume 85 80-99 FL Mean Corpuscular Hemoglobin 28 25-34 PG Mean Corpuscular Hemoglobin Concent 33 32-36 G/DL Red Cell Distribution Width 13.3 10.0-14.5 % Platelet Count 364 130-400 10^3/uL Mean Platelet Volume 9.4 7.4-10.4 FL Neutrophils (%) (Auto) 48 42-75 % Lymphocytes (%) (Auto) 46 H 12-44 % Monocytes (%) (Auto) 5 0-12 % Eosinophils (%) (Auto) 1 0-10 % Basophils (%) (Auto) 0 0-10 % Neutrophils # (Auto) 6.8 1.8-7.8 X 10^3 Lymphocytes # (Auto) 6.5 H 1.0-4.0 X 10^3 Monocytes # (Auto) 0.7 0.0-1.0 X 10^3 Eosinophils # (Auto) 0.1 0.0-0.3 10^3/uL Basophils # (Auto) 0.1 0.0-0.1 10^3/uL Neutrophils % (Manual) 54 % Lymphocytes % (Manual) 38 % Monocytes % (Manual) 7 % Band Neutrophils 1 % Blood Morphology Comment NORMAL Sodium Level 141 135-145 MMOL/L Potassium Level 3.9 3.6-5.0 MMOL/L Chloride Level 102 98-107 MMOL/L Carbon Dioxide Level 17 L 21-32 MMOL/L Anion Gap 22 H 5-14 MMOL/L Blood Urea Nitrogen 17 7-18 MG/DL Creatinine 1.09 0.60-1.30 MG/DL Estimat Glomerular Filtration Rate > 60 BUN/Creatinine Ratio 16 Glucose Level 98 70-105 MG/DL Calcium Level 10.2 H 8.5-10.1 MG/DL Corrected Calcium 8.5-10.1 MG/DL Magnesium Level 2.1 1.6-2.4 MG/DL Total Bilirubin 0.6 0.1-1.0 MG/DL Aspartate Amino Transf (AST/SGOT) 21 5-34 U/L Alanine Aminotransferase (ALT/SGPT) 28 0-55 U/L Alkaline Phosphatase 93 40-136 U/L Total Protein 8.4 H 6.4-8.2 GM/DL Albumin 5.2 H 3.2-4.5 GM/DL My Orders Orders - YUVAL SCHULER MD Cbc With Automated Diff (10/09/19 23:16) Comprehensive Metabolic Panel (10/09/19 23:16) Magnesium (10/09/19 23:16) Ondansetron Injection (Zofran Injectio (10/09/19 23:30) Levetiracetam Injection (Keppra Injectio (10/09/19 23:30) Manual Differential (10/09/19 23:08) Medications Given in ED Vital Signs/I&O 10/09/19 10/10/19 23:08 00:21 Temp 35.7 35.7 Pulse 72 70 Resp 20 20 B/P (MAP) 133/80 (97) 123/77 (97) Pulse Ox 97 100 O2 Delivery Room Air Room Air Blood Pressure Mean: 97 POS Progress Progress Note : Progress Note Patient had no new neurologic deficits. There were no major concerns with labo ratory values. He was given a dose of Keppra 500 mg by IV route. I've suggested that he increase his Keppra dose to 1000 mg twice daily until he can receive further instructions from his neurology team at [facility]. Departure Impression Primary Impression: Seizure Disposition: 01 HOME, SELF-CARE Condition: Improved Departure-Patient Inst. Decision time for Depature: 00:04 Referrals: LAMIN CHEW MD (PCP) Primary Care Physician Patient Instructions: Seizures, Adult (DC) Add. Discharge Instructions: Increase your Keppra dose to 1000 mg twice daily. Follow-up with your primary care provider and your neurologist as soon as possible. Please call both of them this morning soon as their offices open. Do not drive or operate machinery or perform any tasks that may be dangerous should you have another seizure until cleared by a neurologist. Stay well hydrated, get plenty of rest, and eat a well-balanced diet. Return to the emergency room if you have any worsening symptoms or any other problems or concerns. All discharge instructions reviewed with patient and/or family. Voiced understanding. 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
[2019-10-10 00:21] VITALS: BP 123/77
[2019-10-10 09:21] LABS: RBC MORPH NORMAL
== END 2019-10-10 00:21 | disposition home or self-care (01) ==
LOC: EDUNIT# 23:07 → ER 23:09
DX: G40.909 Epilepsy, unspecified, not intractable, without status epilepticus (principal); Z86.011 Personal history of benign neoplasm of the brain
CPT/HCPCS: 36415; 80053; 83735; 85007; 85027; 99283

== ENCOUNTER 2021-10-31 20:29 | Emergency (ER) | payer BC ==
[~2021-10-31] VITALS: Ht 173 cm; Wt 77.0 kg
--- OUTSIDE RECORDS SUMMARY | 2021-10-31 20:35 | XMS REPORT | Encounter Summary ---
Author Author [facility] Organization [facility] Address Unknown Phone Unavailable Care Team Providers Care Room Attendant Name Role Phone No Pcp, Na PCP Unavailable Reason for Visit * Reason Onset Date Comments Medication Problem 10/31/2021 Encounter Details Care Team Description Date Type Department Jesus Cooley MD [address] [place] [id number] Medication Problem 10/31/2021 Telephone Neurosurgery: [facility] [place], [address] [place] [address] Social History Date Tobacco Use Types Packs/Day Years Used Never Smoker Smokeless Tobacco: Never Used Comments Alcohol Use Standard Drinks/Week Not Currently 0 (1 standard drink = 0.6 o z pure alcohol) Sex Assigned at Date Recorded Male 02/06/2020 1:56 PM CDT documented as of this encounter Functional Status Date of Assessment Functional Status Response 07/09/2018 Does the patient have a hearing impairment: No documented as of this encounter Miscellaneous Notes * Telephone Encounter - Jesus Cooley MD - 10/31/2021 7:20 PM PLATE GRAINER Patient's father called this evening stating that the patient is out of antiepil eptics and having seizures. Upon chart review it appears that the patient has n ot seen Dr. Fuchs in clinic and since 2019 and his last procedure was a year prior to that. It appears that Dr. Singer with neurology is who prescribes the pa tient's seizure medications. I instructed the patient's father to call the hosp ital skin pass operator and request to page the neurology resident on-call to discuss refi lling his antiepileptic medication. Jesus Cooley MD Pager [phone] E GRAINER documented in this encounter Plan of Treatment Not on filedocumented as of this encounter Visit Diagnoses Not on filedocumented in this encounter Additional Health Concerns Noted Time Assessment 02/06/2020 1:25 PM CDT A fall risk assessment has been complet ed for the patient documented as of this encounter Care Teams Start Date End Date Room Attendant Relationship Specialty 05/17/18 No Pcp, Na PCP - General documented as of this encounter
--- OUTSIDE RECORDS SUMMARY | 2021-10-31 20:35 | XMS REPORT | Encounter Summary ---
Author Author [facility] Organization [facility] Address Unknown Phone Unavailable Care Team Providers Care International Logistics Coordinator Name Role Phone No Pcp, Na PCP Unavailable Reason for Visit * Reason Onset Date Comments Medication Refill Medication Refill 10/31/2021 Encounter Details Care Team Description Date Type Department Andres Singer MD [address] [id number] 10/18/2021 Refill [facility] Sleep Medicine: [address] [id number] Social History Date Tobacco Use Types Packs/Day [...] impairment: No documented as of this encounter Ordered Prescriptions Start Date End Date Prescription Sig Dispensed Refills 10/20/2021 10/31/2021 levETIRAcetam (KEPPRA) TAKE 2 360 tablet 1 500 mg tablet TABLETS BY MOUTH TWICE DAILY documented in this encounter Plan of Treatment Not on filedocumented as of this encounter Visit Diagnoses Not on filedocumented in this encounter Discontinued Medications Start Date End Date Medication Sig Discontinue Reason 10/28/2020 10/20/2021 levETIRAcetam (KEPPRA) TAKE 2 500 mg tablet TABLETS BY MOUTH TWICE DAILY documented as of this encounter Additional Health Concerns Noted Time Assessment 02/06/2020 1:25 PM CDT A fall risk assessment has been complet ed for the patient documented as of this encounter Care Teams Start Date End Date International Logistics Coordinator Relationship Specialty 05/17/18 No Pcp, Na PCP - General documented as of this encounter
--- OUTSIDE RECORDS SUMMARY | 2021-10-31 20:35 | XMS REPORT | Encounter Summary ---
Author Author [facility] Organization [facility] Address Unknown Phone Unavailable Care Team Providers Care Design Maintenance Engineer Name Role Phone No Pcp, Na PCP Unavailable Reason for Visit * Reason Onset Date Comments On-call 10/31/2021 Encounter Details Care Team Description Date [place] [id number] [facility] [address] [place] [address] On-call 10/31/2021 Telephone Neurology: [facility] [address] [place] [address] Social History Date Tobacco Use Types Packs/Day [...] Date End Date Prescription Sig Dispensed Refills 10/31/2021 levETIRAcetam (KEPPRA) Take two 120 tablet 0 500 mg tablet tablets by mouth twice daily. documented in this encounter Miscellaneous Notes * Telephone Encounter - Kelsey Meneses MD - 10/31/2021 7:30 PM APPLIANCE FIXER Manager Battery Page Time: 1923 Time Returned: 1932 Call back number requested: [phone] Neurologist: Dr. Singer Last recorded visit: 09/18/2020 Pager message: "Pt out of meds - having seizure" Contacted patient by phone: Reviewed phone note from NS that patient should page neurology. He has not been seen for over one year and has no appointment pee lai scheduled. He is on keppra 1000mg twice daily per the last note. Refill keppra 1000mg sent 10/20/2021 with a refill, but his father reports that he is out of medication. He had a seizure today. 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 He has been out of medication for one day and only called this evening. I have refilled the medication yet again, but I am concerne d that pharmacies may not be open this late on . I advised that if pharmacies near him are closed, they will need to go to the ER to be able to get a dose of medication. Patient needs to call epilepsy clinic and make a follow up appointment. IANCE FIXER documented in this encounter Plan of Treatment Not on filedocumented as of this encounter Visit Diagnoses Not on filedocumented in this encounter Discontinued Medications Start Date End Date Medication Sig Discontinue Reason 10/20/2021 10/31/2021 levETIRAcetam (KEPPRA) TAKE 2 Reorder 500 mg tablet TABLETS BY MOUTH TWICE DAILY documented as of this encounter Additional Health Concerns Noted Time Assessment 02/06/2020 1:25 PM CDT A fall risk assessment has been complet ed for the patient documented as of this encounter Care Teams Start Date End Date Design Maintenance Engineer Relationship Specialty 05/17/18 No Pcp, Na PCP - General documented as of this encounter
--- OUTSIDE RECORDS SUMMARY | 2021-10-31 20:35 | XMS REPORT | Clinical Summary ---
Author Author [facility] Organization [facility] Address Unknown Phone Unavailable Care Team Providers Care Yarn Washer Name Role Phone No Pcp, Na PCP Unavailable Source Comments Some departments are not documenting in the electronic medical record. If you d o not see the information that you expected, contact Release of Information in [facility] Information Management department at [phone] for further assistan ce in locating additional records.[facility] Allergies No known active allergies Medications End Date Status Medication Sig Dispensed Refills Start Date Active acetaminophen (TYLENOL) Take 2 0 325 mg tablet tablets by 8 mouth every 4 hours as needed. Active levETIRAcetam (KEPPRA) Take two 120 tablet 0 500 mg tablet tablets by 1 mouth twice daily. 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 Aphasia 05/25/2018 Word finding difficulty 05/23/2018 Memory impairment 05/23/2018 Brain tumor 05/17/2018 Brain compression 05/17/2018 Hydrocephalus 05/17/2018 Resolved Problems Problem Noted Date Resolved Date Metabolic acidosis, increased anion gap 05/21/2018 05/28/2018 Hyperchloremic metabolic acidosis 05/21/201805/02 Acute blood loss anemia 05/21/2018 05/28/2018 Hyperglycemia, drug-induced 05/21/2018 05/28/2018 Cerebral edema 05/17/2018 05/28/2018 Encounters Care Team Description Date Type Specialty Kelsey Meneses MD On-call 10/31/2021 Telephone Neurology Jesus Cooley MD Medication Problem 10/31/2021 Telephone Neurosurgery Andres Singer MD 10/18/2021 Refill Neurology from Last 3 Months Surgical History Surgery Date Site/Laterality Comments CSF SHUNT 07/18/2018 Left CREATION VENTRI CULOPERITONEAL SHUNT performed by Devin Fuchs MD at [facility] [place]/Periop Medical devices from this surgery are i n the Implants section. CRANIOTOMY 05/20/2018 Head/Left LEFT FRONTAL ST EREOTACTIC CRANIOTOMY FOR TUMOR RESECTION, LEFT AND RIGHT EXTERNAL VENT RICULAR DRAIN PLACEMENT performed by Devin Fuchs MD at [facility] [place]/Periop Medical devices from this surgery are i n the Implants section. Family History Relation Name Status Comments Brother Alive Father Alive Mother Alive Sister Alive Sister Alive Social History Date Tobacco Use Types Packs/Day Years Used Never Smoker Smokeless Tobacco: Never Used Comments Alcohol Use Standard Drinks/Week Not Currently 0 (1 standard drink = 0.6 o z pure alcohol) Sex Assigned at Date Recorded Male 02/06/2020 1:56 PM CDT Last Filed Vital Signs Reading Time Taken Comments Vital Sign 122/78 08/07/2019 8:47 AM CDT Blood Pressure 68 08/07/2019 8:47 AM CDT Pulse 37.2 C (98.9 F) 08/04/2018 2:16 PM CDT Temperature - - Respiratory Rate 100% 07/19/2018 11:49 AM CDT Oxygen Saturation - - Inhaled Oxygen Concentration 80.3 kg (177 lb) 02/06/2020 1:22 PM CDT Weight 172.7 cm (5' 8") 02/06/2020 1:22 PM CDT Height 26.91 02/06/2020 1:22 PM CDT Body Mass Index Plan of Treatment Health Maintenance Due Date Last Done Comments HPV VACCINES (1 - Male 2008 2-dose series) HIV SCREENING 2012 DTAP/TDAP VACCINES (1 - 2015 Tdap) HEPATITIS C SCREENING 2015 PHYSICAL (COMPREHENSIVE) 2015 EXAM INFLUENZA VACCINE 06/01/2021 Implants Device Identifier Shelf Expiration Date Model / Serial / L ot Implanted Type Area Manufactur er [id number] / [id number] / Plate Bone Level One Medium Curve Left: Brain ADAL PACK Craniofacial Bur Hole - CMF [id number] IMPLANTS Implanted: Qty: 1 on 05/20/2018 by Devin Fuchs MD at [facility] [id number]- / [id number] / [id number] Plate Bone Level One Long Left: Brain ADAL PACK Craniofacial 2 Hole Ultra Low - CMF [id number] IMPLANTS Implanted: Qty: 1 on 05/20/2018 by Devin Fuchs MD at [facility] [id number] / [id number] / [id number] Cover Vel Hole 18mm .6mm Flat Left: Brain ADAL MA RTIN Titanium Plate Profile Drain - CMF [id number] IMPLANTS Implanted: Qty: 1 on 05/20/2018 by Devin Fuchs MD at [facility] [id number] / [id number] / [id number] Screw Bone Level One Titanium Left: Brain ADAL CAIN TIN Craniomaxillofacial Drill Free - CMF [id number] IMPLANTS Implanted: Qty: 10 on 05/20/2018 by Devin Fuchs MD at [facility] [id number] / [id number] / [id number] Patch Dural 2x2in Lyoplant Cranial Left: Brain AE SCULAP Bovine Pericardium Onlay - [id number] NEURO 7020 DIVISION Implanted: Qty: 1 on 05/20/2018 by Devin Fuchs MD at [facility] 01/29/2019 [id number] / [id number] / [id number] Valve Shunt Certas Inline Catheter JandJ:CODM Unit - [id number] AN and Implanted: Qty: 1 on 07/18/2018 by Devin Mirza MD at [facility] Results Not on filefrom Last 3 Months Insurance Type Payer Benefit Subscriber ID Effective Phone Address Plan / Dates Group PPO BCBS [facility] [id number] 2017- [phone] [id number] PREF CARE Present [facility] [place] [id number] 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 needed 06/02/2018 1:26 PM Full Code 05/17/2018 10:53 PM Provider has discussed Code Status No, discussion no t w/Patient or Family? necessary based on Dx Care Teams Start Date End Date Yarn Washer Relationship Specialty 05/17/18 No Pcp, Na PCP - General
[2021-10-31] MEDS ORDERED: IBUPROFEN 800 MG (MOTRIN) TAB PO STA (20:43)
--- NOTE | 2021-10-31 20:54 | ED Neurological Problem ---
General Chief Complaint: Neurological Problems Stated Complaint: SEIZURE Source: patient Exam Limitations: no limitations History of Present Illness Date Seen by Provider: Oct 31, 2021 Time Seen by Provider: 20:36 Initial Comments Here with report of seizure just before 8 PM tonight. Does have history of seizure disorder after resection of brain tumor. He has had a few breakthrough seizures since May. He is on Keppra 1000 mg twice daily but was out of his meds and the pharmacy was closed today to pick it up. He has not had his medicine today. Had seizure and hurt his right shoulder. Complains of right shoulder pain and states that when he has the seizure his body tightens up on the right side and he is injured his right shoulder before. Denies other injury. Did not bite his tongue. Arrives with family member and he is otherwis e normal acting currently without other concerns. Timing/Duration: 1 hour, episodic Severity: moderate Associated Symptoms: seizures Allergies and Home Medications Allergies Coded Allergies: No Known Drug Allergies (Unverified , 05/12/18) Patient Home Medication List Home Medication List Reviewed: Yes Carboxymethylcellulose Sodium (Refresh Tears) 15 Ml Drops, 1 DROP OU DAILY PRN for DRY EYES, (Reported) Entered as Reported by: CHANTELL FRIEDMAN on 06/03/18 1357 Fludrocortisone Acetate (Fludrocortisone Acetate) 0.1 Mg Tab, 0.2 MG PO BID Prescribed by: JORDY QUINTANILLA on 06/15/181745 Sennosides/Docusate Sodium (Senna-Time S Tablet) 1 Each Tablet, 1 EA PO BID Prescribed by: JORDY QUINTANILLA on 06/15/181745 Sodium Chloride (Sodium Chloride) 1 Gm Tab, 2 GM PO TID Prescribed by: JORDY QUINTANILLA on 06/15/181745 Review of Systems Review of Systems Constitutional: No chills, No fever Eyes: No Symptoms Reported Ears, Nose, Mouth, Throat: no symptoms reported Respiratory: No cough, No short of breath Cardiovascular: no symptoms reported Gastrointestinal: nausea (With seizure but resolved now); No vomiting Musculoskeletal: joint pain, muscle pain Skin: No change in color, No lesions Psychiatric/Neurological: Denies Headache; Tonic Clonic Seizures Past Gfrvoos-Maugjf-Zytldl Hx Patient Social History Tobacco Use?: No Substance use?: No Alcohol Use?: No Immunizations Up To Date Tetanus Booster (TDap): Unknown PED Vaccines UTD: Yes Seasonal Allergies Seasonal Allergies: No Past Medical History Surgeries: Yes (CRANIOTOMY-BRAIN TUMOR REMOVED) Respiratory: No Currently Using CPAP: No Currently Using BIPAP: No Cardiac: No Neurological: Yes Seizure Disorder Genitourinary: No Gastrointestinal: No Musculoskeletal: Yes (RIGHT LEG WEAKNESS) Endocrine: No HEENT: Yes (BLURRY RIGHT EYE ) Loss of Vision: Right Hearing Impairment: Denies Cancer: No (BENIGN BRAIN TUMOR) Did You Recieve Any Treatments: No Psychosocial: No Integumentary: No Blood Disorders: No Family Medical History Reviewed Nursing Family Hx Patient reports no known family medical history. No Pertinent Family Hx Physical Exam Vital Signs Vital Signs - First Documented 10/31/21 20:35 Temp 36.2 Pulse 71 Resp 16 B/P (MAP) 138/98 (111) Pulse Ox 99 O2 Delivery Room Air Capillary Refill : Height, Weight, BMI Height: 5'8.00" Weight: 177lbs. 2.0oz. 80.084471xe; 24.00 BMI Method:Stated General Appearance: WD/WN, no apparent distress HEENT: PERRL/EOMI, pharynx normal Neck: full range of motion, supple, normal inspection Respiratory: lungs clear, normal breath sounds Cardiovascular: regular rate, rhythm, no murmur Gastrointestinal: non tender, soft Extremities: other (Tender about shoulder in the anterior and posterior region. No obvious deformity or dislocation noted. Clavicle without deformity on the right. Distal sensation, circulation and movement intact to the right arm) Neurologic/Psychiatric: alert, oriented x 3 Crainal Nerves: normal hearing, normal speech, PERRL Coordination/Gait: normal gait Motor/Sensory: no motor deficit, no sensory deficit Skin: normal color, warm/dry Progress/Results/Core Measures Results/Orders My Orders Orders - RAMYA ORTIZ MD Ibuprofen Tablet (Motrin Tablet) (10/31/21 20:43) Levetiracetam Tablet (Keppra Tablet) (10/31/21 20:45) Shoulder, Right, 3 Views (10/31/21 20:44) Medications Given in ED Current Medications Medications Dose Ordered Sig/Tracey Route Start Time Stop Time Status Last Admin Dose Admin Levetiracetam 1,000 mg ONCE ONCE PO 10/31/21 20:45 10/31/21 20:46 DC 10/31/21 20:58 1,000 MG Vital Signs/I&O 10/31/21 20:35 Temp 36.2 Pulse 71 Resp 16 B/P (MAP) 138/98 (111) Pulse Ox 99 O2 Delivery Room Air Progress Progress Note : Progress Note Seen and evaluated. Patient does have history of seizure disorder and appears to have had breakthrough due to being out of meds. We will give Keppra 1000 mg p.o. now. Ibuprofen 800 mg p.o. and sling given for pain. We will get x-ray of the right shoulder. No indication for labs or further work-up currently as he has known seizure disorder with breakthrough and reason for breakthrough tonight. Patient and family agree. Monitor patient. 12/02/2004: X-ray negative. No repeat seizures and no significant neurological deficit currently. Discharged home with return precautions. Patient and family verbalized understanding instructions and agreement with plan Diagnostic Imaging Diagonstic Imaging: Xray Plain Films/CT/US/NM/MRI: other Comments Three-view x-ray of the right shoulder shows no obvious acute fracture or dislocation. NAME: FRANCIS[facility] REC#: [id number] PT STATUS: REG ER : 1995 PHYSICIAN: RAMYA ORTIZ MD ADMIT DATE: 10/31/21/ER Draft Date of Exam:10/31/21 SHOULDER, RIGHT, 3 VIEWS CLINICAL INDICATION: Patient with shoulder pain. EXAM: X-ray of the right shoulder, 3 views. COMPARISON: None. FINDINGS: There is no acute fracture or dislocation. There is no significant bone or joint abnormality. The right acromioclavicular joint is unremarkable. IMPRESSION: Unremarkable x-ray of the right shoulder. Dictated on workstation # [id number] Dict: 10/31/212058 Trans: 10/31/212100 [facility] [id number] Interpreted by: JOAO WYNNE MD Electronically signed by: Reviewed: Reviewed by Me Departure Impression Primary Impression: Seizure disorder Additional Impression: Right shoulder strain Qualified Codes: S46.911A - Strain of unspecified muscle, fascia and tendon at shoulder and upper arm level, right arm, initial encounter Disposition: 01 HOME, SELF-CARE Condition: Stable Departure-Patient Inst. Decision time for Depature: 20:52 Referrals: NO,LOCAL PHYSICIAN (PCP) Primary Care Physician DIANA MCWILLIAMS MD Patient Instructions: Rotator Cuff Injury (DC), Seizures, Adult ED, Shoulder Labral Tear (DC) Add. Discharge Instructions: All discharge instructions reviewed with patient and/or family. Voiced understanding. Use sling for comfort over the next 5 to 7 days. You may use ice packs to area of concern 20 minutes/h for the next 1 to 2 days and then use heat or ice as needed to reduce pain. You may take ibuprofen 600 mg every 8 hours as needed for pain. You may take Tylenol 1000 mg every 6-8 hours as needed for pain. instructional support specialist your seizure medicine and continue as previously prescribed. Follow-up with your neurologist next week as needed. Return for worse pain, persistent seizures, weakness, numbness or other concerns as needed. You may follow-up with Dr. Mcwilliams or orthopedist of your choice for further evaluation of the right shoulder especially as this may involve the rotator cuff muscles. RAMYA ORTIZ MD Oct 31, 2021 20:54
--- NOTE | 2021-10-31 21:02 | Diagnostic Imaging Report ---
CLINICAL INDICATION: Patient with shoulder pain. EXAM: X-ray of the right shoulder, 3 views. COMPARISON: None. FINDINGS: There is no acute fracture or dislocation. There is no significant bone or joint abnormality. The right acromioclavicular joint is unremarkable. IMPRESSION: Unremarkable x-ray of the right shoulder. Dictated by: Dictated on workstation # [id number]
[2021-10-31 21:10] VITALS: BP 134/98
[2021-10-31] MEDS ORDERED: LEVE500T6 PO (21:16)
== END 2021-10-31 21:15 | disposition home or self-care (01) ==
LOC: EDUNIT# 20:29 → ER 20:31
DX: S46.911A Strain of unspecified muscle, fascia and tendon at shoulder and upper arm level, right arm, initial encounter (principal); G40.909 Epilepsy, unspecified, not intractable, without status epilepticus; T42.6X6A Underdosing of other antiepileptic and sedative-hypnotic drugs, initial encounter; Z91.138 Patient's unintentional underdosing of medication regimen for other reason; Z79.899 Other long term (current) drug therapy; X58.XXXA Exposure to other specified factors, initial encounter
CPT/HCPCS: 73030; 99283; A4565